=== PATIENT | male | born 1945 | race Caucasian/White ===

== ENCOUNTER 2017-04-11 13:50 | Observation (INO) ==
--- NOTE | 2017-04-11 14:14 | Emergency Department Note ---
Disposition Clinical Impression: Abdominal pain, Nausea, Pancreatic cyst, Weakness Disposition: Admitted As Inpatient Condition: Good General Adult HPI - General Chief complaint: ED Abdominal Pain Stated complaint: abd pain Time Seen by Provider: 04/11/17 13:53 Source: patient - History of Present Illness Pain Scale: 3 - Related Data Home Medications Medication Instructions Recorded Confirmed Caffeine 200 mg PO DAILY PRN 12/10/14 04/11/17 Glucosa Pierre 2Kcl/Chondroitin Pierre 1 cap PO DAILY 12/10/14 04/11/17 [Glucosamine & Chondroitin Cap] Multivitamin/Iron/Folic Acid 1 tab PO DAILY 12/10/14 04/11/17 [Centrum Complete Multivit Tab] Nitroglycerin [Nitrostat] 0.4 mg SL AD 12/10/14 04/11/17 Omeprazole [PriLOSEC] 40 mg PO DAILY 12/10/14 04/11/17 Quinapril/Hydrochlorothiazide 1 tab PO DAILY 12/10/14 04/11/17 [Quinapril-Hctz 10-12.5 mg Tab] Rosuvastatin [Crestor] 40 mg PO DAILY 12/10/14 04/11/17 Clopidogrel [Plavix] 75 mg PO DAILY 02/14/17 04/11/17 Tramadol HCl [Ultram] 50 mg PO TID PRN 02/14/17 04/11/17 Carvedilol [Coreg] 25 mg PO BID 04/11/17 04/11/17 Gabapentin [Neurontin] 600 mg PO TID 04/11/17 04/11/17 metFORMIN [Glucophage] 1,000 mg PO BIDWM 04/11/17 04/11/17 Previous Rx's Medication Instructions Recorded Sucralfate [Carafate] 1 gm PO QID 10 Days oral.susp 02/14/17 Allergies Allergy/AdvReac Type Severity Reaction Status Date / Time No Known Allergies Allergy Verified 04/11/17 14:03 Past Medical History - Past Medical History Medical history: Reports: coronary artery disease, diabetes, GERD, hypertension Surgical history: Reports: coronary bypass (CABG) (x 4 in 2002), other Psychiatric history: Reports: no psych history - Social History Smoking Status: Never smoker Smokeless Tobacco Status: No Alcohol use: Reports: none Drug use: Reports: none Physical Exam - General General appearance: alert, in no apparent distress Course Vital Signs Temperature 98.2 F 04/11/17 14:00 Pulse Rate 109 04/11/17 14:00 Respiratory Rate 16 04/11/17 14:00 Blood Pressure 156/93 04/11/17 14:00 O2 Sat by Pulse Oximetry 100 04/11/17 14:00 Temperature 97.8 F 04/12/17 19:56 Pulse Rate 79 04/12/17 19:56 Respiratory Rate 16 04/12/17 19:56 Blood Pressure 103/56 04/12/17 19:56 O2 Sat by Pulse Oximetry 95 04/12/17 19:56 Oxygen Delivery Oxygen Delivery Room Air Medical Decision Making - Lab Data Result diagrams: 04/12/17 03:29 04/12/17 03:29 Lab Results 04/11/17 04/11/17 04/11/17 Range/Units 14:37 14:37 14:37 WBC 9.3 (4.3-11.1) K/mcL RBC 4.89 (4.19-5.50) M/mcL Hgb 13.7 (12.9-16.9) g/dL Hct 40.1 (37.5-50.1) % MCV 82.0 L (83.0-100.0) fL MCH 28.0 (28.0-33.3) pg MCHC 34.2 (31.6-35.5) g/dL RDW 13.2 (11.5-14.5) % Plt Count 197 (140-400) K/mcL MPV 10.9 (9.4-12.4) fL Immature Gran % 0.2 (0-4) % Seg Neutrophils % 73.4 % Lymphocytes % 17.3 % Monocytes % 8.5 % Eosinophils % 0.2 % Basophils % 0.4 % Neutrophils # 6.8 (1.6-8.9) K/mcL Lymphocytes # 1.6 (0.6-4.6) K/mcL Monocytes # 0.8 (0.0-1.3) K/mcL Eosinophils # 0.0 (0.0-0.6) K/mcL Basophils # 0.0 (0.0-0.2) K/mcL Sodium 142 (136-145) mEq/L Potassium 3.6 (3.5-4.5) mEq/L Chloride 103 (98-109) mEq/L Carbon Dioxide 29 (19-29) mEq/L BUN 15 (8-26) mg/dL Creatinine 1.23 (0.72-1.25) mg/dL Est GFR ( Amer) > 60 (> 60) Est GFR (Non-Af Amer) 58 L (> 60) BUN/Creatinine Ratio 12 (6-26) Glucose 157 H (70-99) mg/dL Calculated Osmolality 298 (280-300) Calcium 10.0 (8.6-10.8) mg/dL Total Bilirubin 0.5 (0.2-1.2) mg/dL Direct Bilirubin 0.3 (0.0-0.5) mg/dL Indirect Bilirubin 0.2 (0.0-1.2) mg/dL AST 25 (5-34) Units/L ALT 21 (0-55) Units/L Alkaline Phosphatase 71 (38-126) Units/L Troponin I 0.00 (0-0.03) ng/mL Serum Total Protein 7.7 (6.0-8.3) g/dL Albumin 3.8 (3.5-5.0) g/dL Globulin 3.9 H (2.4-3.5) g/dL Albumin/Globulin Ratio 1.0 L (1.1-2.2) Lipase 31 (8-78) Units/L Urine Color (Yellow) Urine Clarity (Clear) Urine pH (5.0-8.0) pH Units Ur Specific [place] (1.010-1.025) Urine Protein (Neg-Trace) mg/dL Urine Glucose (UA) (Normal) mg/dL Urine Ketones (Negative) mg/dL Urine Blood (Negative) Urine Nitrite (Negative) Urine Bilirubin (Negative) Urine Urobilinogen (Normal) mg/dL Ur Leukocyte Esterase (Negative) Urine Microscopic RBC (0-3) per hpf Urine Microscopic WBC (0-3) per hpf Ur Squamous Epith Cells (None-Few) per lpf Urine Bacteria (None-Few) per hpf Hyaline Casts (None-Few) per lpf Ur Culture Indicated? (NO) 04/11/17 Range/Units 14:46 WBC (4.3-11.1) K/mcL RBC (4.19-5.50) M/mcL Hgb (12.9-16.9) g/dL Hct (37.5-50.1) % MCV (83.0-100.0) fL MCH (28.0-33.3) pg MCHC (31.6-35.5) g/dL RDW (11.5-14.5) % Plt Count (140-400) K/mcL MPV (9.4-12.4) fL Immature Gran % (0-4) % Seg Neutrophils % % Lymphocytes % % Monocytes % % Eosinophils % % Basophils % % Neutrophils # (1.6-8.9) K/mcL Lymphocytes # (0.6-4.6) K/mcL Monocytes # (0.0-1.3) K/mcL Eosinophils # (0.0-0.6) K/mcL Basophils # (0.0-0.2) K/mcL Sodium (136-145) mEq/L Potassium (3.5-4.5) mEq/L Chloride (98-109) mEq/L Carbon Dioxide (19-29) mEq/L BUN (8-26) mg/dL Creatinine (0.72-1.25) mg/dL Est GFR ( Amer) (> 60) Est GFR (Non-Af Amer) (> 60) BUN/Creatinine Ratio (6-26) Glucose (70-99) mg/dL Calculated Osmolality (280-300) Calcium (8.6-10.8) mg/dL Total Bilirubin (0.2-1.2) mg/dL Direct Bilirubin (0.0-0.5) mg/dL Indirect Bilirubin (0.0-1.2) mg/dL AST (5-34) Units/L ALT (0-55) Units/L Alkaline Phosphatase (38-126) Units/L Troponin I (0-0.03) ng/mL Serum Total Protein (6.0-8.3) g/dL Albumin (3.5-5.0) g/dL Globulin (2.4-3.5) g/dL Albumin/Globulin Ratio (1.1-2.2) Lipase (8-78) Units/L Urine Color Yellow (Yellow) Urine Clarity Clear (Clear) Urine pH 7.0 (5.0-8.0) pH Units Ur Specific [place] 1.014 (1.010-1.025) Urine Protein 30 H (Neg-Trace) mg/dL Urine Glucose (UA) Normal (Normal) mg/dL Urine Ketones Negative (Negative) mg/dL Urine Blood Negative (Negative) Urine Nitrite Negative (Negative) Urine Bilirubin Negative (Negative) Urine Urobilinogen Normal (Normal) mg/dL Ur Leukocyte Esterase Negative (Negative) Urine Microscopic RBC 0-3 (0-3) per hpf Urine Microscopic WBC 0-3 (0-3) per hpf Ur Squamous Epith Cells Few (None-Few) per lpf Urine Bacteria None Seen (None-Few) per hpf Hyaline Casts None Seen (None-Few) per lpf Ur Culture Indicated? NO (NO) Attestation Statement - Attestation Attestation: I examined this patient and my medical decision-making was reviewed with the Resident Physician. I agree with the documented findings, disposition and treatment plan as described except to the extent set forth below. [id number] time provided Patient presents with subacute abdominal pain. He was recently seen at the urgent care and diagnosed with suspected peptic ulcer disease. He states pain persists. He appears in no acute distress on exam
[2017-04-11] MEDS ORDERED: GI Cocktail 40 ML EACH PO ONE (14:19)
[2017-04-11] MEDS ORDERED: Ondansetron 4 MG/2 ML VIAL IVP ONE ×2 (14:19→15:46)
--- NOTE | 2017-04-11 14:24 | Emergency Department Note ---
Disposition Clinical Impression: Nausea, Pancreatic cyst, Weakness Abdominal pain Qualifiers: Abdominal location: unspecified location Qualified Code(s): R10.9 - Unspecified abdominal pain Disposition: Admitted As Inpatient Condition: Good Instructions: Acute Nausea and Vomiting (ED), Abdominal Pain (ED) Referrals: Angelika Montalvo CNP [Primary Care Provider] - Roslyn Puente MD [Partnered Physician] - Forms: ED Satisfaction Letter, Work/School Release Time of Disposition: 15:53 Abdominal Pain HPI - General Chief Complaint: ED Abdominal Pain Stated Complaint: abd pain Time Seen by Provider: 04/11/17 13:53 Source: patient Mode of arrival: ambulatory Limitations: no limitations Nursing Notes Reviewed: Yes Vital Signs Reviewed: Yes - History of Present Illness HPI Narrative: 71-year-old male history of hypertension, hyperlipidemia, CAD presents with epigastric discomfort. This is been ongoing for the past 4 days was recently seen at urgent care diagnosed with gastritis or peptic ulcer disease and placed on Carafate. He has been taking that medication for one day without any significant relief. He has been scheduled with general surgery Dr. Puente for ED tomorrow 1400. Describes a soreness across his epigastric region with some associated nausea. He denies any blood in his stool, black tarry stool, hemoptysis or hematemesis. He denies any other complaints such as recent illness, fever, cough, chest pain or shortness of breath. No prior abdominal surgeries. He does admit to me that his recently passed 3 months ago January 22 from peritonitis. This has been on his mind for quite some time. States he has lost his appetite is not been eating well or sleeping concern for depression. He denies any suicidal ideation. History of cardiac stents 2014. Pt Subjective Complaint: abdominal pain Pain Scale: 3 - Related Data Home Medications Medication Instructions Recorded Confirmed Caffeine 200 mg PO DAILY PRN 12/10/14 02/14/17 Glucosa Pierre 2Kcl/Chondroitin Pierre 1 cap PO DAILY 12/10/14 02/14/17 [Glucosamine & Chondroitin Cap] Multivitamin/Iron/Folic Acid 1 tab PO DAILY 12/10/14 02/14/17 [Centrum Complete Multivit Tab] Nitroglycerin [Nitrostat] 0.4 mg SL AD 12/10/14 02/14/17 Omeprazole [PriLOSEC] 40 mg PO DAILY 12/10/14 02/14/17 Quinapril/Hydrochlorothiazide 1 tab PO DAILY 12/10/14 02/14/17 [Quinapril-Hctz 10-12.5 mg Tab] Rosuvastatin [Crestor] 40 mg PO DAILY 12/10/14 02/14/17 Clopidogrel [Plavix] 75 mg PO DAILY 02/14/17 02/14/17 Tramadol HCl [Ultram] 50 mg PO TID PRN 02/14/17 02/14/17 Carvedilol [Coreg] 25 mg PO BID 04/11/17 04/11/17 Gabapentin [Neurontin] 600 mg PO TID 04/11/17 04/11/17 metFORMIN [Glucophage] 1,000 mg PO BIDWM 04/11/17 04/11/17 Previous Rx's Medication Instructions Recorded Sucralfate [Carafate] 1 gm PO QID 10 Days oral.susp 02/14/17 Allergies Allergy/AdvReac Type Severity Reaction Status Date / Time No Known Allergies Allergy Verified 04/11/17 14:03 All systems ED: reviewed and negative except as stated. Review of Systems: As Per HPI Constitutional: Denies: fever, chills Cardiovascular: Denies: chest pain, dyspnea on exertion Respiratory: Denies: cough, dyspnea Gastrointestinal: Reports: abdominal pain, nausea. Denies: vomiting, diarrhea, hematemesis, melena, hematochezia Genitourinary: Denies: urgency, dysuria Musculoskeletal: Denies: back pain, neck pain Integumentary: Denies: rash, abrasion, lesions Neurological: Denies: headache Psychiatric: Denies: depression, suicidal thoughts Abdominal Pain PMH - Past Medical History Medical history: Reports: coronary artery disease, diabetes, GERD, hypertension Male Surgical History: Reports: coronary bypass (CABG) Psychiatric history: Reports: no psych history - Social History Smoking status: Never smoker Alcohol use: Reports: none Drug use: Reports: none Physical Exam - General Limitations: no limitations General appearance: alert, in no apparent distress, other (Flat affect) - Head Head exam: atraumatic, normocephalic, normal inspection - Eye Eye exam: Present: normal appearance, PERRL, EOMI - ENT ENT exam: normal exam, normal oropharynx, mucous membranes moist - Neck Neck exam: Present: normal inspection, full ROM, trachea midline - Chest Chest inspection: Present: normal inspection, symmetric chest wall rise, other ( Midsternal scar consistent with CABG) - Respiratory Respiratory exam: Present: normal lung sounds bilaterally - Cardiovascular Cardiovascular exam: Present: regular rate, normal rhythm, normal heart sounds - Abdominal Exam Abdominal exam: Present: soft, tenderness, normal bowel sounds, tenderness at McBurney's Point. Absent: Non-Tender, distention, guarding, rebound, rigidity, obturator sign, Bertrand's sign, Rovsing's sign Abdominal tenderness: Present: RLQ, epigastrium - Extremities Exam Extremities exam: Present: full ROM, normal capillary refill, other (right hand amputation). Absent: tenderness, pedal edema - Back Exam Back exam: Present: normal inspection, full ROM. Absent: tenderness, CVA tenderness (R), CVA tenderness (L) - Neurological Exam Neurological exam: Present: alert, oriented X3 - Psychiatric Psychiatric exam: Present: normal affect, normal mood, anxious. Absent: suicidal ideation - Skin Skin exam: Present: warm, dry, intact, normal color. Absent: rash, diaphoresis Course - Reevaluation(s) Reevaluation #1: Review of his labs are unremarkable. EKG unremarkable. CT shows pancreatic cyst that I discussed the findings with him and appropriate follow-up. He also has uncomplicated cholelithiasis as well as a large prostate gland. Patient has a scheduled appointment with surgeon tomorrow for consultation of a ED. Review of his urgent care encounter he was prescribed Protonix, Carafate and Zofran. He is currently only taking the Carafate and Protonix. Despite his medication he continues to have symptoms here. Junior P8 abdominal examination his abdomen is soft nontender nondistended without any focal tenderness. CT does not show any acute abnormality. This is a nonsurgical abdomen. Daughter came up to the nursing station and reports that over the past 3 days he has not been able to take care of himself. He lives by himself. Due to the nausea, he has lost some weight and appears weaker. After multiple doses of Zofran in one Phenergan he continues to be nauseated. He does not feel well and would like admission. Impression is abdominal pain, nausea, weakness. Our hospital social worker Charline has seen and evaluated the patient and recommends a consultation on the floor. Abdomen/Pelvis CT 04/11/17 14:20 IMPRESSION: 1. No acute abnormality in the abdomen/pelvis. 2. Diffuse bladder wall thickening, likely secondary to a combination of prior cystitis and sequela of chronic bladder outlet obstruction from an enlarged prostate gland. 3. Small cystic lesions in the pancreatic tail, which measure up to 7 mm in size. A follow-up pancreatic protocol MRI in 12 months is recommended, as outlined below. 4. Uncomplicated cholelithiasis. 5. Severe atherosclerosis. RECOMMENDATIONS: Managing Incidental Cystic Pancreatic Mass (Asymptomatic Patient) Lesion <2 cm: MRI using pancreatic mass protocol in 1 year (6 months if younger patient) Lesion 2-3 cm: characterize with MRI using pancreatic mass protocol Lesion >3 cm: Surgical referral recommended Reference: Monica et al. Managing Incidental Findings on Abdominal CT: White Paper of the ACR Incidental Findings Committee. J Am Bobby Radiol 2010;[id number] D/ / 04/11/2017 15:24:56 Geovany Larson MD / xavier Interpreting Provider: Geovany Larson MD Time: 15:48 - Consultations Consultation #1: Spoke with on-call hospitalist maria del carmen Weiss to admit for abdominal pain, nausea , weakness. No further orders at this time Time: 16:50 Vital Signs Temperature 98.2 F 04/11/17 14:00 Pulse Rate 109 04/11/17 14:00 Respiratory Rate 16 04/11/17 14:00 Blood Pressure 156/93 04/11/17 14:00 O2 Sat by Pulse Oximetry 100 04/11/17 14:00 Temperature 98.2 F 04/11/17 14:00 Pulse Rate 76 04/11/17 16:03 Respiratory Rate 16 04/11/17 16:03 Blood Pressure 158/87 04/11/17 16:03 O2 Sat by Pulse Oximetry 97 04/11/17 16:03 Oxygen Delivery Oxygen Delivery Room Air Abdominal Pain - MDM Narrative Medical decision making narrative: Patient was discussed with my attending physician who agrees with ED management and final disposition. They independently evaluated the patient. Please refer to their attestation to this encounter for additional information. This note was generated by [employer] voice recognition software and as a result grammatical or spelling errors may occur using this program. - Medical Records Medical records reviewed: Yes I reviewed the patient's medical records. - Lab Data Lab results reviewed: Yes I reviewed the patient's lab results. Result diagrams: 04/11/17 14:37 04/11/17 14:37 Lab Results 04/11/17 04/11/17 04/11/17 Range/Units 14:37 14:37 14:37 WBC 9.3 (4.3-11.1) K/mcL RBC 4.89 (4.19-5.50) M/mcL Hgb 13.7 (12.9-16.9) g/dL Hct 40.1 (37.5-50.1) % MCV 82.0 L (83.0-100.0) fL MCH 28.0 (28.0-33.3) pg MCHC 34.2 (31.6-35.5) g/dL RDW 13.2 (11.5-14.5) % Plt Count 197 (140-400) K/mcL MPV 10.9 (9.4-12.4) fL Immature Gran % 0.2 (0-4) % Seg Neutrophils % 73.4 % Lymphocytes % 17.3 % Monocytes % 8.5 % Eosinophils % 0.2 % Basophils % 0.4 % Neutrophils # 6.8 (1.6-8.9) K/mcL Lymphocytes # 1.6 (0.6-4.6) K/mcL Monocytes # 0.8 (0.0-1.3) K/mcL Eosinophils # 0.0 (0.0-0.6) K/mcL Basophils # 0.0 (0.0-0.2) K/mcL Sodium 142 (136-145) mEq/L Potassium 3.6 (3.5-4.5) mEq/L Chloride 103 (98-109) mEq/L Carbon Dioxide 29 (19-29) mEq/L BUN 15 (8-26) mg/dL Creatinine 1.23 (0.72-1.25) mg/dL Est GFR ( Amer) > 60 (> 60) Est GFR (Non-Af Amer) 58 L (> 60) BUN/Creatinine Ratio 12 (6-26) Glucose 157 H (70-99) mg/dL Calculated Osmolality 298 (280-300) Calcium 10.0 (8.6-10.8) mg/dL Total Bilirubin 0.5 (0.2-1.2) mg/dL Direct Bilirubin 0.3 (0.0-0.5) mg/dL Indirect Bilirubin 0.2 (0.0-1.2) mg/dL AST 25 (5-34) Units/L ALT 21 (0-55) Units/L Alkaline Phosphatase 71 (38-126) Units/L Troponin I 0.00 (0-0.03) ng/mL Serum Total Protein 7.7 (6.0-8.3) g/dL Albumin 3.8 (3.5-5.0) g/dL Globulin 3.9 H (2.4-3.5) g/dL Albumin/Globulin Ratio 1.0 L (1.1-2.2) Lipase 31 (8-78) Units/L Urine Color (Yellow) Urine Clarity (Clear) Urine pH (5.0-8.0) pH Units Ur Specific [place] (1.010-1.025) Urine Protein (Neg-Trace) mg/dL Urine Glucose (UA) (Normal) mg/dL Urine Ketones (Negative) mg/dL Urine Blood (Negative) Urine Nitrite (Negative) Urine Bilirubin (Negative) Urine Urobilinogen (Normal) mg/dL Ur Leukocyte Esterase (Negative) Urine Microscopic RBC (0-3) per hpf Urine Microscopic WBC (0-3) per hpf Ur Squamous Epith Cells (None-Few) per lpf Urine Bacteria (None-Few) per hpf Hyaline Casts (None-Few) per lpf Ur Culture Indicated? (NO) 04/11/17 Range/Units 14:46 WBC (4.3-11.1) K/mcL RBC (4.19-5.50) M/mcL Hgb (12.9-16.9) g/dL Hct (37.5-50.1) % MCV (83.0-100.0) fL MCH (28.0-33.3) pg MCHC (31.6-35.5) g/dL RDW (11.5-14.5) % Plt Count (140-400) K/mcL MPV (9.4-12.4) fL Immature Gran % (0-4) % Seg Neutrophils % % Lymphocytes % % Monocytes % % Eosinophils % % Basophils % % Neutrophils # (1.6-8.9) K/mcL Lymphocytes # (0.6-4.6) K/mcL Monocytes # (0.0-1.3) K/mcL Eosinophils # (0.0-0.6) K/mcL Basophils # (0.0-0.2) K/mcL Sodium (136-145) mEq/L Potassium (3.5-4.5) mEq/L Chloride (98-109) mEq/L Carbon Dioxide (19-29) mEq/L BUN (8-26) mg/dL Creatinine (0.72-1.25) mg/dL Est GFR ( Amer) (> 60) Est GFR (Non-Af Amer) (> 60) BUN/Creatinine Ratio (6-26) Glucose (70-99) mg/dL Calculated Osmolality (280-300) Calcium (8.6-10.8) mg/dL Total Bilirubin (0.2-1.2) mg/dL Direct Bilirubin (0.0-0.5) mg/dL Indirect Bilirubin (0.0-1.2) mg/dL AST (5-34) Units/L ALT (0-55) Units/L Alkaline Phosphatase (38-126) Units/L Troponin I (0-0.03) ng/mL Serum Total Protein (6.0-8.3) g/dL Albumin (3.5-5.0) g/dL Globulin (2.4-3.5) g/dL Albumin/Globulin Ratio (1.1-2.2) Lipase (8-78) Units/L Urine Color Yellow (Yellow) Urine Clarity Clear (Clear) Urine pH 7.0 (5.0-8.0) pH Units Ur Specific [place] 1.014 (1.010-1.025) Urine Protein 30 H (Neg-Trace) mg/dL Urine Glucose (UA) Normal (Normal) mg/dL Urine Ketones Negative (Negative) mg/dL Urine Blood Negative (Negative) Urine Nitrite Negative (Negative) Urine Bilirubin Negative (Negative) Urine Urobilinogen Normal (Normal) mg/dL Ur Leukocyte Esterase Negative (Negative) Urine Microscopic RBC 0-3 (0-3) per hpf Urine Microscopic WBC 0-3 (0-3) per hpf Ur Squamous Epith Cells Few (None-Few) per lpf Urine Bacteria None Seen (None-Few) per hpf Hyaline Casts None Seen (None-Few) per lpf Ur Culture Indicated? NO (NO) - Radiology Data Radiology results reviewed: Yes I reviewed the patient's radiology results. Abdomen/Pelvis CT 04/11/17 14:20 IMPRESSION: 1. No acute abnormality in the abdomen/pelvis. 2. Diffuse bladder wall thickening, likely secondary to a combination of prior cystitis and sequela of chronic bladder outlet obstruction from an enlarged prostate gland. 3. Small cystic lesions in the pancreatic tail, which measure up to 7 mm in size. A follow-up pancreatic protocol MRI in 12 months is recommended, as outlined below. 4. Uncomplicated cholelithiasis. 5. Severe atherosclerosis. RECOMMENDATIONS: Managing Incidental Cystic Pancreatic Mass (Asymptomatic Patient) Lesion <2 cm: MRI using pancreatic mass protocol in 1 year (6 months if younger patient) Lesion 2-3 cm: characterize with MRI using pancreatic mass protocol Lesion >3 cm: Surgical referral recommended Reference: Monica et al. Managing Incidental Findings on Abdominal CT: White Paper of the ACR Incidental Findings Committee. J Am Bobby Radiol 2010;[id number] D/ / 04/11/2017 15:24:56 Geovany Larson MD / xavier Interpreting Provider: Geovany Larson MD - EKG Data EKG attestation: Yes I reviewed and interpreted this EKG. EKG results narrative: EKG performed 1435 normal sinus rhythm 70 bpm, left axis deviation, QRS 102, poor R wave progression, Q waves in inferior leads, no ST elevations or depression, nonspecific T wave flattening. There is no old EKG available for comparison.
[2017-04-11 14:50] LABS: Basophils % 0.4 %; Eosinophils % 0.2 %; Hematocrit 40.1 % (37.5-50.1); Hemoglobin 13.7 g/dL (12.9-16.9); Immature Granulocytes % 0.2 % (0-4); Lymphocytes # 1.6 K/mcL (0.6-4.6); Lymphocytes % 17.3 %; Mean Corpuscular HGB Conc 34.2 g/dL (31.6-35.5); Mean Platelet Volume 10.9 fL (9.4-12.4); Monocytes # 0.8 K/mcL (0.0-1.3); Monocytes % 8.5 %; Neutrophils # 6.8 K/mcL (1.6-8.9); Platelet Count 197 K/mcL (140-400); Red Blood Count 4.89 M/mcL (4.19-5.50); Red Cell Distribution Width 13.2 % (11.5-14.5); Segmented Neutrophils % 73.4 %
[2017-04-11 14:51] LABS: Bilirubin,Urine Negative (Negative); Blood,Urine Negative (Negative); Clarity,Urine Clear (Clear); Color,Urine Yellow (Yellow); Glucose,Urine (UA) Normal (Normal); Ketones,Urine Negative (Negative); Leukocyte Esterase,Urine Negative (Negative); Nitrite,Urine Negative (Negative); Protein,Urine 30 mg/dL (Neg-Trace); Specific Gravity,Urine 1.014 (1.010-1.025); Urobilinogen,Urine Normal (Normal)
[2017-04-11 14:54] LABS: Bacteria,Urine None Seen per hpf (None-Few); Hyaline Casts,Urine None Seen per lpf (None-Few); RBC,Urine 0-3 per hpf (0-3); Squamous Epithelial Cell,Urine Few per lpf (None-Few); WBC,Urine 0-3 per hpf (0-3)
[2017-04-11 15:03] LABS: Alanine Aminotransferase 21 Units/L (0-55); Albumin 3.8 g/dL (3.5-5.0); Alkaline Phosphatase 71 Units/L (38-126); Aspartate Amino Transferase 25 Units/L (5-34); BUN/Creatinine Ratio 12 (6-26); Bilirubin,Direct 0.3 mg/dL (0.0-0.5); Bilirubin,Indirect 0.2 mg/dL (0.0-1.2); Bilirubin,Total 0.5 mg/dL (0.2-1.2); Blood Urea Nitrogen 15 mg/dL (8-26); Carbon Dioxide 29 mEq/L (19-29); Chloride 103 mEq/L (98-109); Globulin 3.9 g/dL (2.4-3.5); Glucose 157 mg/dL (70-99); Lipase 31 Units/L (8-78); Osmolality,Calculated 298 (280-300); Potassium 3.6 mEq/L (3.5-4.5); Sodium 142 mEq/L (136-145); Total Protein 7.7 g/dL (6.0-8.3); eGFR For African Americans > 60 (> 60); eGFR For Non-African Americans 58 (> 60)
[2017-04-11] MEDS ORDERED: 0.9 % Sodium Chloride 1,000 ML IVC ONE (16:17)
[2017-04-11] MEDS ORDERED: Pantoprazole 40 MG VIAL IVP ONE (16:17)
[2017-04-11] MEDS ORDERED: traMADol 50 MG TABLET PO PRN (18:33)
[2017-04-11] MEDS ORDERED: Naloxone 0.4 MG/ML INJ IVP PRN (18:39)
[2017-04-11] MEDS ORDERED: Ondansetron 4 MG/2 ML VIAL IVP PRN (18:39)
[2017-04-11] MEDS ORDERED: *HR* Dextrose 50 % in Water (Syg) 50 ML SYRINGE IVP PRN (18:39)
[2017-04-11] MEDS ORDERED: D5% in Water 1,000 ML IVC PRN (18:39)
[2017-04-11] MEDS ORDERED: Dextrose Gel 15 GM PO PRN ×2 (18:39)
[2017-04-11] MEDS ORDERED: 0.9 % Sodium Chloride 1,000 ML IVC SCH (18:45)
[2017-04-11] MEDS ORDERED: Nitroglycerin 0.4 MG TAB.SUBL SL PRN (18:45)
--- NOTE | 2017-04-11 19:08 | Internal Med History&Physical ---
<Catracho Larry J - Last Filed: 04/11/17 19:05> Date of Encounter: 04/11/17 Time of Encounter: 19:05 Assessment and Plan (1) Nausea Current visit: Yes Status: Acute He is no longer continuously nauseous. He has not vomited since Monday. Start antiemetics Encourage fluids, Start 0.9% NS at 125ml/hr for 1 liter Full liquid diet Consult surgery for possible inpatient EGD- GREY TENDER to see tomorrow Start PPI IVP BID Continue carafate CBC, CMP, lactic acid in am (2) Abdominal pain Current visit: Yes Status: Acute Continues to have generalized epigastric discomfort. He is unable to describe the sensation but reports that it improves with eating. She denies any hematemesis, hematochezia, melena. CT of abdomen and pelvis negative with the exception of a 7 mm pancreatic tail cyst. Recommendations for pancreatic tail cyst are to follow-up with MRI in 12 months See plan above. 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 Continue BB Qualifiers: Hypertension type: essential hypertension Qualified Code(s): I10 - Essential (primary) hypertension (5) DVT prophylaxis Current visit: Yes Status: Acute Heparin 5000 units subcutaneous twice a day Internal Medicine - H&P: HPI Chief complaint: epigastric discomfort Admitted From: Home Plans for Post Hospital Care: Home History of present illness: Mr. Clark is a 71 year old male with a PMH of HTN, HLD, CAD, DM, GERD, CABG with UT with stents who presents to [facility] today with a 4 day history of epigastric discomfort. Patient reports that his recently seen in urgent care due to nausea vomiting and epigastric pain. While at the urgent care he was diagnosed with suspected gastritis or possible peptic ulcer disease. He was placed on Carafate and sent home. The patient reports he has only taken one dose of Carafate but has not had any relief. 3 presents to the ED today due to continued discomfort. He admits to fever, chills, abdominal pain, nausea and vomiting. He denies any chest pain, shortness of breath above baseline, coffee-ground emesis, hematochezia or dark tarry stools. CT of abdomen and pelvis in the ED reveals a pancreatic tail cyst measuring 7 mm. Is being admitted for further workup and evaluation Past Med Surg Social Fam HX - Past Medical History Medical history: coronary artery disease, diabetes, GERD, hypertension Psychiatric history: no psych history - Past Surgical History Surgical History: coronary bypass (CABG), other - Social History Smoking Status: Never smoker Smokeless Tobacco Status: No Alcohol use: none Drug use: none - Family History Father Living Status: Age at : 66 Cause of : heart attack Hx Family Endocrine Disorder: Yes Mother Living Status: Age at : 80 Cause of : heart attack Internal Medicine - H&P: Meds Caffeine 200 mg PO DAILY PRN 12/10/14 [History] Glucosa Pierre 2Kcl/Chondroitin Pierre [Glucosamine & Chondroitin Cap] 1 cap PO DAILY [History] Multivitamin/Iron/Folic Acid [Centrum Complete Multivit Tab] 1 tab PO DAILY 04/14 [History] Nitroglycerin [Nitrostat] 0.4 mg SL AD 12/10/14 [History] Omeprazole [PriLOSEC] 40 mg PO DAILY 12/10/14 [History] Quinapril/Hydrochlorothiazide [Quinapril-Hctz 10-12.5 mg Tab] 1 tab PO DAILY 04/14 [History] Rosuvastatin [Crestor] 40 mg PO DAILY 12/10/14 [History] Clopidogrel [Plavix] 75 mg PO DAILY 02/14/17 [History] Sucralfate [Carafate] 1 gm PO QID 10 Days oral.susp 02/14/17 [Rx] Tramadol HCl [Ultram] 50 mg PO TID PRN 02/14/17 [History] Carvedilol [Coreg] 25 mg PO BID 04/11/17 [History] Gabapentin [Neurontin] 600 mg PO TID 04/11/17 [History] metFORMIN [Glucophage] 1,000 mg PO BIDWM 04/11/17 [History] 3 Allergy/AdvReac Type Severity Reaction Status Date / Time No Known Allergies Allergy Verified 04/11/17 14:03 All Systems PM: A 10-system review of systems was performed and is negative for pertinent findings except as documented above in the HPI. - Constitutional Constitutional: anorexia, chills (subjective), fatigue, fever(s) (subjective), weakness - Cardiovascular Cardiovascular ROS IM: no chest pain, no diaphoresis, no dyspnea, no lightheadedness, no palpitations, no syncope - Respiratory Respiratory: no cough, no dyspnea, no wheezing, no excessive phlegm production - Gastrointestinal Gastrointestinal: abdominal pain (epigastric), nausea, vomiting (on Monday; has not vomited since), no diarrhea - Musculoskeletal Musculoskeletal ROS IM: no numbness, no tingling - Integumentary Integumentary IM: no rash, no unusual bruising - Neurological Neurological ROS: no confusion, no convulsions, no focal weakness, no numbness, no tingling, no tremor(s) - Constitutional Vitals: Temp Pulse Resp BP Pulse Ox 98.0 F 81 16 146/80 96 04/11/17 18:51 04/11/17 18:51 04/11/17 18:51 04/11/17 18:51 04/11/17 18:51 General appearance: Present: cooperative, A&O X 3, no acute distress, answers questions appropriately - Head Head exam: Present: atraumatic, normocephalic - Neck Neck exam general surgery: Present: supple, trachea midline. Absent: lymphadenopathy - Respiratory Respiratory exam: Present: CTAB. Absent: accessory muscle use, rales, rhonchi, wheezes - Cardiovascular Cardiovascular exam: Present: RRR, +S1, +S2. Absent: diastolic murmur, gallop, rubs, systolic murmur - GI/Abdominal GI/Abdominal exam: Present: normal bowel sounds, soft, tenderness (epigastric), no peritoneal signs. Absent: distended, firm, guarding, rigid - Extremities Exam Extremities exam: Present: warm, radial pulses palpable and symmetrical. Absent : calf tenderness, cyanotic, pedal edema - Neurological Exam Neurological exam: Present: alert, oriented X3, no focal deficits. Absent: pronater drift, facial droop, speech deficit - Skin Skin exam: Present: dry, intact Internal Med - H&P Results - Labs CBC & Chem 7: 04/11/17 14:37 04/11/17 14:37 - Diagnostic Studies CT scan - abdomen Status: image reviewed by me Additional comments: 1. No acute abnormality in the abdomen/pelvis. 2. Diffuse bladder wall thickening, likely secondary to a combination of prior cystitis and sequela of chronic bladder outlet obstruction from an enlarged prostate gland. 3. Small cystic lesions in the pancreatic tail, which measure up to 7 mm in size. A follow-up pancreatic protocol MRI in 12 months is recommended for further evaluation, as outlined below. 4. Uncomplicated cholelithiasis. 5. Severe atherosclerosis. <Jeana Paigemaico Murillo - Last Filed: 04/11/17 20:55> Date of Encounter: 04/11/17 Internal Medicine - H&P: HPI History of present illness: Mr. Clark is a 71 year old male All Systems PM: A 10-system review of systems was performed and is negative for pertinent findings except as documented above in the HPI. - Constitutional Vitals: Temp Pulse Resp BP Pulse Ox 98.0 F 81 16 146/80 96 04/11/17 18:51 04/11/17 18:51 04/11/17 18:51 04/11/17 18:51 04/11/17 18:51 Internal Med - H&P Results - Labs CBC & Chem 7: 04/11/17 14:37 04/11/17 14:37 - Attending Attestation I have personally performed a face to face evaluation on this patient. I have reviewed and agree with the care plan. History and Exam by me shows: 71 yo male with dyspepsia symptoms since a couple months ago. Worsened in last 4 years , seen at urgent care. Epigastric discomfort, dull ache, nausea, emesis- clear, somewhat better with food. Moving bowels. EKG reviewed personally with rate 70, NSR ROS 14 point review of systems reviewed as best as possible given presentation. Pertinent positive or negative as per HPI or otherwise reviewed as negative General - AAO x 3 Psych - Appropriate affect/speech. No agitation Eyes - TIFFANY. Eye lids intact. No scleral icterus Neuro - No gross peripheral or central neuro deficits with intact CN 2-12 exam Heart - Sinus. RRR. S1 and S2 present. No added HS/murmurs appreciated. No elevated JVD appreciated. Lung - Adequate air entry b/l, No crackles/wheezes appreciated GI - Epigastric discomfort. No hepatosplenomegaly/ascites. BS+ - No CVA/suprapubic tenderness or palpable bladder distension Skin - Intact. No rash/petechiae/ecchymosis. Warm extremities MSK - Distal right hand amputation. Joints with normal ROM. No joint swellings A/P Epigastric discomfort Dyspepsia Associated N/V R/o PUD - was suppose to establish with Dr Puente outpatient for possible EGD eval - consult surgery who will see tomorrow - meanwhile medical management with PPI , carafate, symptom directed management - full liquids and progress as tolerated IDDM
[2017-04-11] MEDS ORDERED: Insulin LISPRO 300 UNITS/3 ML VIAL SQ SCH (21:00)
[2017-04-11] MEDS: Gabapentin 300 MG CAPSULE PO SCH (22:04)
[2017-04-12 03:37] LABS: Basophils % 0.2 %; Eosinophils # 0.1 K/mcL (0.0-0.6); Eosinophils % 0.6 %; Hematocrit 35.2 % (37.5-50.1); Immature Granulocytes % 0.1 % (0-4); Lymphocytes # 1.7 K/mcL (0.6-4.6); Mean Corpuscular HGB Conc 33.8 g/dL (31.6-35.5); Mean Corpuscular Volume 82.8 fL (83.0-100.0); Mean Platelet Volume 10.6 fL (9.4-12.4); Monocytes % 11.6 %; Neutrophils # 5.6 K/mcL (1.6-8.9); Platelet Count 175 K/mcL (140-400); Red Blood Count 4.25 M/mcL (4.19-5.50); Red Cell Distribution Width 13.3 % (11.5-14.5); Segmented Neutrophils % 67.5 %
[2017-04-12 03:38] LABS: Hemoglobin 11.9 g/dL (12.9-16.9)
[2017-04-12 03:51] LABS: Alanine Aminotransferase 17 Units/L (0-55); Albumin 3.1 g/dL (3.5-5.0); Alkaline Phosphatase 58 Units/L (38-126); Aspartate Amino Transferase 22 Units/L (5-34); BUN/Creatinine Ratio 14 (6-26); Bilirubin,Total 0.5 mg/dL (0.2-1.2); Blood Urea Nitrogen 15 mg/dL (8-26); Calcium 8.5 mg/dL (8.6-10.8); Carbon Dioxide 26 mEq/L (19-29); Chloride 109 mEq/L (98-109); Glucose 117 mg/dL (70-99); Osmolality,Calculated 298 (280-300); Potassium 3.5 mEq/L (3.5-4.5); Sodium 143 mEq/L (136-145); eGFR For African Americans > 60 (> 60); eGFR For Non-African Americans > 60 (> 60)
[2017-04-12 03:52] LABS: Total Protein 6.1 g/dL (6.0-8.3)
[2017-04-12] MEDS ORDERED: Pantoprazole 40 MG VIAL IVP SCH (06:00)
[2017-04-12] MEDS ORDERED: *HR* Heparin 5,000 UNIT/ML VIAL SQ SCH (06:00)
[2017-04-12] MEDS: Gabapentin 300 MG CAPSULE PO SCH ×3 (08:03→21:32)
[2017-04-12] MEDS: Insulin LISPRO 300 UNITS/3 ML VIAL SQ SCH ×3 (08:07→16:35)
[2017-04-12] MEDS ORDERED: [UNRECOGNIZED DRUG - OTHER] PO SCH (09:00)
[2017-04-12] MEDS ORDERED: QUINAPRIL PO SCH (09:00)
[2017-04-12] MEDS ORDERED: HYDROCHLOROTHIAZIDE PO SCH (09:00)
[2017-04-12] MEDS ORDERED: [UNRECOGNIZED DRUG - OTHER] PO SCH (09:00)
[2017-04-12] MEDS ORDERED: Multivit/Ca/Min/Fe/FA 1 TAB TABLET PO SCH (09:00)
[2017-04-12] MEDS ORDERED: *HR* Midazolam HCl 5 MG/5 ML VIAL IVP ONE (11:00)
[2017-04-12] MEDS ORDERED: *HR* FentaNYL (PF) 100 MCG/2 ML VIAL ONE (11:01)
[2017-04-12] MEDS ORDERED: *HR* Promethazine 25 MG/ML VIAL ONE (11:01)
--- NOTE | 2017-04-12 11:03 | General Surgery Consult Note ---
Date of Encounter: 04/12/17 Time of Encounter: 10:30 Assessment and Plan (1) Epigastric abdominal pain Current Visit: Yes Status: Acute NPO IV fluids Supportive care PPI therapy BID Carafate QID Plan for EGD today with Dr. Puente- the risks, benefits, alternatives, expected outcomes were reviewed with the patient is in agreement to proceed with his procedure today. (2) Coronary artery disease Current Visit: No Status: Chronic Qualifiers: Coronary Disease-Associated Artery/Lesion type: bypass graft [place] vs. 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 A follow-up pancreatic protocol MRI in 12 months is recommended for further evaluation, as outlined below. Management per PCP History of Present Illness Consult date: 04/12/17 History of present illness: Mr. Clark is a very pleasant 71-year-old male who presented to the emergency department last night with complaints of persistent epigastric abdominal pain. He states that he has had pain in the epigastric area which has been intermittent for the last couple of months. He states that the pain is random and that it comes and goes. He states that he began to have recurrent epigastric pain on Monday evening and did have associated vomiting. Denies any hematemesis or coffee-ground emesis. He states that this started after eating potato soup. He denies any radiating factors. He states that the pain is typically better with eating but this was not the case on Monday. He reports that prior to the last 2 months he has never had a history of pain like this in the past. He states that he did go to urgent care on Monday and was given Carafate which she does not feel has helped. He does have a history of heartburn and states that his symptoms are controlled with omeprazole. He does complain of feeling hot and cold but denies any specific fevers. He denies any diarrhea or constipation. Denies any melena or hematochezia. He states that he did have an EGD 3-4 years ago and at that time he did have a hiatal hernia. He states his last colonoscopy was 4-5 years ago and he had 1 benign polyp removed. He reports a 3-4 pound weight loss per year which is unintentional. We have been asked to see and evaluate the patient for his epigastric discomfort. 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) - Social History Smoking Status: Never smoker Smokeless Tobacco Status: No Alcohol use: none Drug use: none Current living situation: Home - Independent Activity Level: Independent ambulation - Family History Father Living Status: Age at : 66 Cause of : heart attack Hx Family Cardiac Disorders: Yes (CAD) Hx Family Endocrine Disorder: Yes (Diabetes Mellitus) Mother Living Status: Age at : 80 Cause of : heart attack Hx Family Cardiac Disorders: Yes (CAD) Sister Living Status: Still Living Hx Family Cancer: Yes (Breast cancer) Hx Family Neuromuscular Disorders: Yes (Scoliosis) Medications and Allergies Caffeine 200 mg PO DAILY PRN 12/10/14 [History] Glucosa Pierre 2Kcl/Chondroitin Pierre [Glucosamine & Chondroitin Cap] 1 cap PO DAILY [History] Multivitamin/Iron/Folic Acid [Centrum Complete Multivit Tab] 1 tab PO DAILY 04/14 [History] Nitroglycerin [Nitrostat] 0.4 mg SL AD 12/10/14 [History] Omeprazole [PriLOSEC] 40 mg PO DAILY 12/10/14 [History] Quinapril/Hydrochlorothiazide [Quinapril-Hctz 10-12.5 mg Tab] 1 tab PO DAILY 04/14 [History] Rosuvastatin [Crestor] 40 mg PO DAILY 12/10/14 [History] Clopidogrel [Plavix] 75 mg PO DAILY 02/14/17 [History] Sucralfate [Carafate] 1 gm PO QID 10 Days oral.susp 02/14/17 [Rx] Tramadol HCl [Ultram] 50 mg PO TID PRN 02/14/17 [History] Carvedilol [Coreg] 25 mg PO BID 04/11/17 [History] Gabapentin [Neurontin] 600 mg PO TID 04/11/17 [History] metFORMIN [Glucophage] 1,000 mg PO BIDWM 04/11/17 [History] 3 Allergy/AdvReac Type Severity Reaction Status Date / Time No Known Allergies Allergy Verified 04/11/17 14:03 Review of Systems All systems PM: reviewed and no additional remarkable complaints except as stated (in the HPI) All systems PM: A 10-system review of systems was performed and is negative for pertinent findings except as documented above in the HPI. General Surgery Exam Initial Vital Signs Temp Pulse Resp BP Pulse Ox 98.2 F 109 16 156/93 100 04/11/17 14:00 04/11/17 14:00 04/11/17 14:00 04/11/17 14:00 04/11/17 14:00 - General physical appearance well developed, well nourished, no distress - Eyes normal ocular movement - ENT normal mucosa, atraumatic, normocephalic - Neck trachea midline - Respiratory normal expansion, normal respiratory effort, clear to auscultation - Cardiovascular Cardiovascular exam: Present: RRR - Abdomen Abdomen general surgery: Present: bowel sounds present, soft, non tender - Integumentary Integumentary general surgery: Present: warm and dry - Neurologic Present: CN 2-12 grossly intact - Musculoskeletal Present: normal gait, normal posture - Psychiatric Psychiatric general surgery: Present: appropriate, oriented to person, oriented to place, oriented to time, speech is normal, memory intact Exam Initial Vital Signs Temp Pulse Resp BP Pulse Ox 98.2 F 109 16 156/93 100 04/11/17 14:00 04/11/17 14:00 04/11/17 14:00 04/11/17 14:00 04/11/17 14:00 Results - Labs 04/12/17 03:29 04/12/17 03:29 Abnormal lab results Hgb 11.9 g/dL (12.9-16.9) L D 04/12/17 03:29 Hct 35.2 % (37.5-50.1) L 04/12/17 03:29 MCV 82.8 fL (83.0-100.0) L 04/12/17 03:29 Glucose 117 mg/dL (70-99) H 04/12/17 03:29 Calcium 8.5 mg/dL (8.6-10.8) L 04/12/17 03:29 Albumin 3.1 g/dL (3.5-5.0) L 04/12/17 03:29 Albumin/Globulin Ratio 1.0 (1.1-2.2) L 04/12/17 03:29 Urine Protein 30 mg/dL (Neg-Trace) H 04/11/17 14:46 Diabetes panel 04/12/17 Range/Units 03:29 Sodium 143 (136-145) mEq/L Potassium 3.5 (3.5-4.5) mEq/L Chloride 109 (98-109) mEq/L Carbon Dioxide 26 (19-29) mEq/L BUN 15 (8-26) mg/dL Creatinine 1.09 (0.72-1.25) mg/dL Glucose 117 H (70-99) mg/dL Calcium 8.5 L (8.6-10.8) mg/dL AST 22 (5-34) Units/L ALT 17 (0-55) Units/L Alkaline Phosphatase 58 (38-126) Units/L Albumin 3.1 L (3.5-5.0) g/dL Calcium panel 04/12/17 Range/Units 03:29 Calcium 8.5 L (8.6-10.8) mg/dL Albumin 3.1 L (3.5-5.0) g/dL Pituitary panel 04/12/17 Range/Units 03:29 Sodium 143 (136-145) mEq/L Potassium 3.5 (3.5-4.5) mEq/L Chloride 109 (98-109) mEq/L Carbon Dioxide 26 (19-29) mEq/L BUN 15 (8-26) mg/dL Creatinine 1.09 (0.72-1.25) mg/dL Glucose 117 H (70-99) mg/dL Calcium 8.5 L (8.6-10.8) mg/dL Adrenal panel 04/12/17 Range/Units 03:29 Sodium 143 (136-145) mEq/L Potassium 3.5 (3.5-4.5) mEq/L Chloride 109 (98-109) mEq/L Carbon Dioxide 26 (19-29) mEq/L BUN 15 (8-26) mg/dL Creatinine 1.09 (0.72-1.25) mg/dL Glucose 117 H (70-99) mg/dL Calcium 8.5 L (8.6-10.8) mg/dL Total Bilirubin 0.5 (0.2-1.2) mg/dL AST 22 (5-34) Units/L ALT 17 (0-55) Units/L Alkaline Phosphatase 58 (38-126) Units/L Albumin 3.1 L (3.5-5.0) g/dL All other labs normal. - Imaging Additional studies: Abdomen/Pelvis CT 04/11/17 14:20 IMPRESSION: 1. No acute abnormality in the abdomen/pelvis. 2. Diffuse bladder wall thickening, likely secondary to a combination of prior cystitis and sequela of chronic bladder outlet obstruction from an enlarged prostate gland. 3. Small cystic lesions in the pancreatic tail, which measure up to 7 mm in size. A follow-up pancreatic protocol MRI in 12 months is recommended for further evaluation, as outlined below. 4. Uncomplicated cholelithiasis. 5. Severe atherosclerosis. RECOMMENDATIONS: Managing Incidental Cystic Pancreatic Mass (Asymptomatic Patient) Lesion <2 cm: MRI using pancreatic mass protocol in 1 year (6 months if younger patient) Lesion 2-3 cm: characterize with MRI using pancreatic mass protocol Lesion >3 cm: Surgical referral recommended Reference: Monica et al. Managing Incidental Findings on Abdominal CT: White Paper of the ACR Incidental Findings Committee. J Am Bobby Radiol 2010;7:754-773 D/ 04/11/2017 15:24:56 Geovany Larson MD / xavier Interpreting Provider: Geovany Larson MD Consult Discharge Plan - Plan Referrals: Angelika Montalvo, RENETTA [Primary Care Provider] - 04/19/17 11:00 am - Attending Attestation For this encounter, I have reviewed the INFORMATION SYSTEMS AUDIT MANAGER or PA documentation, treatment plan, and medical decision making; and I have had face to face time with this patient.
--- NOTE | 2017-04-12 12:44 | Pre-Sedation Evaluation ---
Pre-sedation evaluation - Pre-sedation checklist Date of procedure: 04/12/17 Procedure: EGD Recent Vitals: Last Vital Signs Temp 98.3 F 04/12/17 11:25 Pulse 70 04/12/17 12:35 Resp 18 04/12/17 12:35 BP 155/79 04/12/17 12:35 Pulse Ox 98 04/12/17 12:35 H&P (including ROS) documented in medical record: Yes Previous reaction to sedatives/anesthetics: No Dietary Status: NPO after Midnight Dentition: No loose teeth or bridges ASA Classification *see protocol: CLASS III-Severe systemic disease Plan of Care: Pt appropriate candidate for procedure/moderate/conscious sedation , Risks/benefits of procedure/sedation discussed w/ patient/family
[2017-04-12] MEDS ORDERED: Nitroglycerin 0.4 MG TAB.SUBL SL PRN (12:58)
[2017-04-12] MEDS ORDERED: traMADol 50 MG TABLET PO PRN (12:58)
[2017-04-12] MEDS ORDERED: Dextrose Gel 15 GM PO PRN ×2 (12:58)
[2017-04-12] MEDS ORDERED: D5% in Water 1,000 ML IVC PRN (12:58)
[2017-04-12] MEDS ORDERED: Naloxone 0.4 MG/ML INJ IVP PRN (12:58)
[2017-04-12] MEDS ORDERED: *HR* Dextrose 50 % in Water (Syg) 50 ML SYRINGE IVP PRN (12:58)
[2017-04-12] MEDS ORDERED: Ondansetron 4 MG/2 ML VIAL IVP PRN (12:58)
--- NOTE | 2017-04-12 15:48 | Internal Med Progress Note ---
Date of Encounter: 04/12/17 Time of Encounter: 15:44 - Assessment and plan (1) Acute gastritis Current Visit: No Status: Acute Assessment and plan: Presented with abdominal pain for the last 3 weeks. Was in the process of outpatient workup for EGD. 04/12/17 EGD with small hiatal hernia, nodular mucosa in the cardia that was biopsied, multiple gastric polyps resected and retrieved, and evidence of gastritis was erythematous mucosa in the prepyloric region. Start Carafate 1 g 4 times a day for 4 weeks. Follow-up with general surgery outpatient. Qualifiers: Gastritis type: other gastritis Gastritis bleeding: without bleeding Qualified Code(s): K29.00 - Acute gastritis without bleeding (2) Coronary artery disease Current Visit: No Status: Chronic Assessment and plan: Per history. Asymptomatic, denies chest pain. Continue home Plavix, BB, statin. Qualifiers: Coronary Disease-Associated Artery/Lesion type: bypass graft [place] vs. transplanted heart: [place] heart Associated angina: without angina Qualified Code(s): I25.810 - Atherosclerosis of coronary artery bypass graft(s) without angina pectoris (3) Diabetes mellitus Current Visit: Yes Status: Chronic Assessment and plan: Per history. Continue SSI. Monitor blood sugars and titrate PRN Qualifiers: Diabetes mellitus type: type 2 Diabetes mellitus complication status: without complication Diabetes mellitus care home insulin use: without care home use Qualified Code(s): E11.9 - Type 2 diabetes mellitus without complications (4) DVT prophylaxis Current Visit: Yes Status: Acute Assessment and plan: Heparin - Subjective Interval history: Seen and examined at bedside. Patient is new to me, information obtained from chart review and patient report. Patient says he feels about the same regarding abdominal discomfort. Says symptoms have been present off and on for the last 3 weeks[address] Had appointment with Dr. Mei for outpatient EGD today. He does have an appetite and would like to eat when able. Denies chest pain, no shortness of breath. No nausea vomiting or diarrhea or constipation my exam. - Constitutional Vitals: Temp Pulse Resp BP Pulse Ox 97.3 F L 55 16 125/73 98 04/12/17 15:21 04/12/17 15:21 04/12/17 15:21 04/12/17 15:21 04/12/17 15:21 General appearance: Present: cooperative, A&O X 3, no acute distress, answers questions appropriately - Head Head exam: Present: atraumatic, normocephalic - Eye Eye exam: Present: PERRL, conjuntiva pink, sclera anicteric Pupils: Present: PERRL - Neck Neck exam general surgery: Present: supple, trachea midline. Absent: lymphadenopathy - Respiratory Respiratory exam: Present: CTAB. Absent: accessory muscle use, rales, rhonchi, wheezes - Cardiovascular Cardiovascular exam: Present: RRR, +S1, +S2. Absent: diastolic murmur, gallop, rubs, systolic murmur - GI/Abdominal GI/Abdominal exam: Present: normal bowel sounds, soft, no peritoneal signs. Absent: distended, tenderness - Extremities Exam Extremities exam: Present: warm, radial pulses palpable and symmetrical. Absent : calf tenderness, cyanotic, pedal edema - Neurological Exam Neurological exam: Present: CN II-XII intact, oriented X3, no focal deficits. Absent: pronater drift, facial droop, speech deficit - Skin Skin exam: Present: dry, intact Internal Medicine: Result - Labs CBC & Chem 7: 04/12/17 03:29 04/12/17 03:29 Labs: Short CBC 04/12/17 Range/Units 03:29 WBC 8.3 (4.3-11.1) K/mcL Hgb 11.9 L D (12.9-16.9) g/dL Hct 35.2 L (37.5-50.1) % Plt Count 175 (140-400) K/mcL Neutrophils # 5.6 (1.6-8.9) K/mcL BMP 04/12/17 03:29 Sodium 143 Potassium 3.5 Chloride 109 Carbon Dioxide 26 BUN 15 Creatinine 1.09 Glucose 117 H Calcium 8.5 L Liver Function 04/12/17 Range/Units 03:29 Total Bilirubin 0.5 (0.2-1.2) mg/dL AST 22 (5-34) Units/L ALT 17 (0-55) Units/L Alkaline Phosphatase 58 (38-126) Units/L Albumin 3.1 L (3.5-5.0) g/dL Consult Discharge Plan - Plan Referrals: Angelika Montalvo, CIVIL ENGINEERING DESIGNER [Primary Care Provider] - 04/19/17 11:00 am
--- NOTE | 2017-04-12 16:08 | Electrocardiograph Report ---
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
[2017-04-12] MEDS: Pantoprazole 40 MG VIAL IVP SCH (18:27)
[2017-04-12] MEDS: *HR* Heparin 5,000 UNIT/ML VIAL SQ SCH (18:33)
[2017-04-12] MEDS ORDERED: Insulin LISPRO 300 UNITS/3 ML VIAL SQ SCH (21:00)
[2017-04-13] MEDS: *HR* Heparin 5,000 UNIT/ML VIAL SQ SCH (06:20)
[2017-04-13] MEDS: Pantoprazole 40 MG VIAL IVP SCH (06:20)
[2017-04-13] MEDS: Insulin LISPRO 300 UNITS/3 ML VIAL SQ SCH (07:49)
[2017-04-13] MEDS: Gabapentin 300 MG CAPSULE PO SCH (08:18)
[2017-04-13] MEDS ORDERED: GLUCOSAMINE PO SCH (09:00)
[2017-04-13] MEDS ORDERED: Multivit/Ca/Min/Fe/FA 1 TAB TABLET PO SCH (09:00)
[2017-04-13] MEDS ORDERED: [UNRECOGNIZED DRUG - OTHER] PO SCH (09:00)
[2017-04-13] MEDS ORDERED: CHONDROITIN PO SCH (09:00)
--- NOTE | 2017-04-13 09:46 | Discharge Summary ---
Date of Encounter: 04/13/17 Time of Encounter: 09:43 - Discharge Diagnosis (1) Acute gastritis Priority: Primary Status: Acute Qualifiers: Gastritis type: other gastritis Gastritis bleeding: without bleeding Qualified Code(s): K29.00 - Acute gastritis without bleeding (2) Coronary artery disease Priority: Secondary Status: Chronic Qualifiers: Coronary Disease-Associated Artery/Lesion type: bypass graft [place] vs. transplanted heart: [place] heart Associated angina: without angina Qualified Code(s): I25.810 - Atherosclerosis of coronary artery bypass graft(s) without angina pectoris (3) Diabetes mellitus Priority: Secondary Status: Chronic Qualifiers: Diabetes mellitus type: type 2 Diabetes mellitus complication status: without complication Diabetes mellitus prison insulin use: without moth exterminator use Qualified Code(s): E11.9 - Type 2 diabetes mellitus without complications (4) DVT prophylaxis Priority: Secondary Status: Acute - Discharge Medications Prescriptions: Sucralfate [Carafate] 1 gm PO QID #120 tablet Home Medications: Caffeine 200 mg PO DAILY PRN 12/10/14 [History] Glucosa Pierre 2Kcl/Chondroitin Pierre [Glucosamine & Chondroitin Cap] 1 cap PO DAILY [History] Multivitamin/Iron/Folic Acid [Centrum Complete Multivit Tab] 1 tab PO DAILY 04/14 [History] Nitroglycerin [Nitrostat] 0.4 mg SL AD 12/10/14 [History] Omeprazole [PriLOSEC] 40 mg PO DAILY 12/10/14 [History] Quinapril/Hydrochlorothiazide [Quinapril-Hctz 10-12.5 mg Tab] 1 tab PO DAILY 04/14 [History] Rosuvastatin [Crestor] 40 mg PO DAILY 12/10/14 [History] Clopidogrel [Plavix] 75 mg PO DAILY 02/14/17 [History] Tramadol HCl [Ultram] 50 mg PO TID PRN 02/14/17 [History] Carvedilol [Coreg] 25 mg PO BID 04/11/17 [History] Gabapentin [Neurontin] 600 mg PO TID 04/11/17 [History] metFORMIN [Glucophage] 1,000 mg PO BIDWM 04/11/17 [History] Sucralfate [Carafate] 1 gm PO QID #120 tablet 04/13/17 [Rx] Allergies/Adverse Reactions: 3 Allergy/AdvReac Type Severity Reaction Status Date / Time No Known Allergies Allergy Verified 04/11/17 14:03 Date of admission: 04/11/17 17:04 Primary care physician: Angelika Montalvo CNP Consults: 04/11/17 16:53 Consult to Traveling Phlebotomist [CONS] Stat Reason for SW Consult: lives alone, establish plan of care and resources at home Discharging clinician: Guanako Frost Anticipated date of discharge: 04/13/17 - Patient Status Disposition: Home, Self-Care Condition: Good Functional capacity at discharge: independent ambulation Overall status at discharge: patient is progressing back to baseline - Discharge Instructions Instructions: Acute Nausea and Vomiting (DC), Acute Abdominal Pain (DC) Follow Up With: Roslyn Puente MD [Partnered Physician] - 05/11/17 9:55 am Angelika Montalvo CNP [Primary Care Provider] - 04/19/17 11:00 am Additional Instructions: Follow up with Dr. Puente for biopsy results. Avoid caffeine, NSAIDS - Diet and Activity Activity: increase activity as tolerated Diet: low fat, low cholesterol, low salt diet Hospital course: Mr. Clark is a 71 year old male patient with a history of diabetes mellitus, hypertension who presented to the ER with complaints of abdominal pain and nausea. He was evaluated in the ER with a CT scan of the abdomen and pelvis which showed small cystic lesions in the pancreatic tail and uncomplicated cholelithiasis along with diffuse bladder wall thickening. Given his symptoms of nausea and epigastric pain, he was evaluated by surgery and per their recommendation underwent upper GI endoscopy. Patient was found to have significant gastritis and erythematous mucosa in the prepyloric region of the stomach which was biopsied. He also had small hiatal hernia. Surgery recommends the patient take Carafate 1 g tabs 4 times a day for 4 weeks and then will follow-up with him in the clinic. He is now tolerating oral diet well and is feeling much better. He is clinically stable to be discharged home. He is advised to avoid caffeine products and oral NSAIDs. - Time Spent with Patient Total time spent providing and/or coordinating discharge services: Less than 30 minutes (25 min) - Constitutional Vitals: Temp Pulse Resp BP Pulse Ox 98.0 F 85 18 125/59 94 04/13/17 07:16 04/13/17 07:16 04/13/17 07:16 04/13/17 07:16 04/13/17 07:16 General appearance: Present: cooperative, A&O X 3, no acute distress, answers questions appropriately - Respiratory Respiratory exam: Present: CTAB. Absent: accessory muscle use, rales, rhonchi, wheezes - Cardiovascular Cardiovascular exam: Present: RRR, +S1, +S2. Absent: diastolic murmur, gallop, rubs, systolic murmur - GI/Abdominal GI/Abdominal exam: Present: normal bowel sounds, soft, no peritoneal signs. Absent: distended, tenderness
[2017-04-13 11:04] VITALS: BP 114/68
--- NOTE | 2017-04-13 11:06 | Event Note ---
Date of Encounter: 04/13/17 Time of Encounter: 11:03 Findings of recent upper G.I. endoscopy with Dr. Puente on 04/12/2017 reviewed with Mr. Clark including normal ampulla, duodenal bulb and 1st portion of the duodenum, gastritis which was biopsy, erythematous mucosa in the pre-pyloric region of the stomach was biopsy, multiple gastric polyps which were resected and retrieved, nodular mucosa in the Cardia which was biopsy, and a small hiatal hernia. He is recommended to take Carafate 1 g PO 4 times a day for 4 weeks and a follow-up in the office in 4 weeks. Of note, he states he cannot afford these liquid Carafate and I will therefore switch him to 1 g pills 4 times daily. - Patient Status Disposition: Home, Self-Care Condition: Good Functional capacity at discharge: independent ambulation Overall status at discharge: patient is progressing back to baseline - Discharge Instructions Follow Up With: Angelika Montalvo CNP [Primary Care Provider] - 04/19/17 11:00 am Roslyn Puente MD [Partnered Physician] - 05/11/17 9:55 am Additional Instructions: Follow up with Dr. Puente for biopsy results. Avoid caffeine, NSAIDS - Diet and Activity Activity: increase activity as tolerated Diet: advance to your usual diet - Transfer Medications Prescriptions: Sucralfate [Carafate] 1 gm PO QID #120 tablet Home Medications: Caffeine 200 mg PO DAILY PRN 12/10/14 [History] Glucosa Pierre 2Kcl/Chondroitin Pierre [Glucosamine & Chondroitin Cap] 1 cap PO DAILY [History] Multivitamin/Iron/Folic Acid [Centrum Complete Multivit Tab] 1 tab PO DAILY 04/14 [History] Nitroglycerin [Nitrostat] 0.4 mg SL AD 12/10/14 [History] Omeprazole [PriLOSEC] 40 mg PO DAILY 12/10/14 [History] Quinapril/Hydrochlorothiazide [Quinapril-Hctz 10-12.5 mg Tab] 1 tab PO DAILY 04/14 [History] Rosuvastatin [Crestor] 40 mg PO DAILY 12/10/14 [History] Clopidogrel [Plavix] 75 mg PO DAILY 02/14/17 [History] Tramadol HCl [Ultram] 50 mg PO TID PRN 02/14/17 [History] Carvedilol [Coreg] 25 mg PO BID 04/11/17 [History] Gabapentin [Neurontin] 600 mg PO TID 04/11/17 [History] metFORMIN [Glucophage] 1,000 mg PO BIDWM 04/11/17 [History] Sucralfate [Carafate] 1 gm PO QID #120 tablet 04/13/17 [Rx] Allergies/Adverse Reactions: 3 Allergy/AdvReac Type Severity Reaction Status Date / Time No Known Allergies Allergy Verified 04/11/17 14:03
== END 2017-04-13 13:15 | disposition home or self-care (01) ==
LOC: 3BNU 13:50 → EMEROO 13:50 → SUATTDRO 17:04 → 3BNU 18:05
PROVIDERS: ADMIT Internal Medicine; ATTEND Internal Medicine
PROC: ENDOEBX (2017-04-12 11:30)

== ENCOUNTER 2017-10-19 11:07 | Observation (INO) ==
--- NOTE | 2017-10-19 11:26 | Emergency Department Note ---
Disposition Clinical Impression: Diarrhea Qualifiers: Diarrhea type: unspecified type Qualified Code(s): R19.7 - Diarrhea, unspecified Chest pain Qualifiers: Chest pain type: unspecified Qualified Code(s): R07.9 - Chest pain, unspecified Disposition: Admitted As Inpatient Condition: Good Referrals: Angelika Montalvo CNP [Primary Care Provider] - Forms: ED Satisfaction Letter Time of Disposition: 15:32 General Adult HPI - General Chief complaint: ED Chest Pain Stated complaint: Chest burning Time Seen by Provider: 10/19/17 11:24 Nursing Notes Reviewed: Yes Vital Signs Reviewed: Yes - History of Present Illness HPI Narrative: 71-year-old male presents from home after calling nurse Wendie at 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 Patient's symptoms are described as a with substernal chest discomfort with generalized weakness, nausea and hot/cold sweats. This began last night. Patient notes his discomfort has been constant for about the past week with nothing noted to improve or worsen his symptoms. His nausea is chronic from March 2017. He does have a home prescription of promethazine which he has not taken today for his nausea. His new symptom is the hot/cold sweats. PMH: Hypertension, hyperlipidemia, diabetes, history of [place] status post stent 3 and CABG. No history of COPD; patient has never smoked. ROS: Positive: As above Negative: Fever, chills, vomiting, palpitations, unusual back pain, abdominal pain, dysuria, changes in bowel or bladder habits. Pain Scale: 0 - Related Data Home Medications Medication Instructions Recorded Confirmed Multivitamin/Iron/Folic Acid 1 tab PO DAILY 12/10/14 10/19/17 [Centrum Complete Multivit Tab] Clopidogrel [Plavix] 75 mg PO DAILY 02/14/17 10/19/17 Carvedilol [Coreg] 25 mg PO BID 04/11/17 10/19/17 metFORMIN [Glucophage] 1,000 mg PO BIDWM 04/11/17 10/19/17 Aspirin 81 mg PO DAILY 06/26/17 10/19/17 Isosorbide MONOnitrate (24 HR) 30 mg PO DAILY 10/19/17 10/19/17 [Imdur] Nitroglycerin [Nitroglycerin] 0.4 mg PO Q5MIN PRN 10/19/17 10/19/17 Omeprazole [PriLOSEC] 40 mg PO DAILY 10/19/17 10/19/17 Pregabalin [Lyrica] 75 mg PO BID 10/19/17 10/19/17 Promethazine [Phenergan] 25 mg PO DAILY PRN 10/19/17 10/19/17 Quinapril/Hydrochlorothiazide 1 tab PO DAILY 10/19/17 10/19/17 [Quinapril-Hctz 10-12.5 mg Tab] Rosuvastatin Calcium [Rosuvastatin 40 mg PO DAILY 10/19/17 10/19/17 Calcium] Allergies Allergy/AdvReac Type Severity Reaction Status Date / Time No Known Allergies Allergy Verified 10/19/17 14:26 All systems ED: reviewed and negative except as stated. Review of Systems: As Per HPI Past Medical History - Past Medical History Medical history: Reports: coronary artery disease, diabetes, GERD, hyperlipidemia, hypertension, other Surgical history: Reports: angioplasty/stent, cholecystectomy, coronary bypass ( CABG), other Psychiatric history: Reports: no psych history - Social History Smoking Status: Never smoker Smokeless Tobacco Status: No Alcohol use: Reports: none Drug use: Reports: none Physical Exam Vital Signs Reviewed General: Patient is alert, oriented, and in no acute distress. Head: atraumatic, normocephalic Eye: normal appearance, no scleral icterus, no conjunctival injection ENT: mucous membranes moist, normal external ear exam Neck: normal inspection, trachea midline, full ROM Chest: normal inspection, symmetric chest rise Respiratory: Good respiratory effort. Bilateral breath sounds are clear without wheezing, crackles, or rhonchi. Cardiovascular: Regular rate and rhythm. No clicks, rubs, gallops, or murmors. Normal heart sounds. Left radial pulse 2/4. Abdomen: Bowel sounds present normoactive x-4 quadrants. Abdomen is soft, nondistended, and nontender. No guarding or rebound. No organomegaly noted. Musculoskeletal: Spontaneously moving all extremities. Amputation of right distal forearm; well-healed. Skin: warm, dry, intact. Neuro: Alert and oriented x4. Sensation light touch intact. Psych: Patient's affect is appropriate for situation. Course Course Narrative: EKG dated 10/19/17 at 11:11 interpreted as sinus rhythm with rate of 99. Normal intervals of AR 164, QRS 86, QTC 47. PVCs. Left axis. Nonspecific ST-T changes. Compared to previous dated 05/04/2017 showing no acute ischemic changes or comparison. -Patient had a nuclear exercise stress test 2 days ago that was negative for ischemia however patient did have chest discomfort during exercise; EF 31% at that time, PVCs present, inferior lateral segments and apex with severe to absent reduction in perfusion. -Cardiac catheterization 2 years ago with EF 40-45%. -TN with stent 3 in 2011. CABG in 2002. On reevaluation by my attending, patient mentions a 2 day history of loose stools with lower abdominal pain. CT abdomen pelvis without contrast performed or concern of potential colitis. CT scan for etiology read shows no acute findings. Hematology is unremarkable Serum chemistries unremarkable; specifically normal hepatic enzymes, normal pancreatic enzyme, in troponin within normal limits. Discussed the patient with the admitting hospitalist, Dr. Cruz, who agrees to accept the patient for continued evaluation and management of chest pain rule out ACS. Chest X-Ray 10/19/17 11:33 IMPRESSION: No acute pulmonary finding. D/ / Tony France MD / Tony France MD Interpreting Provider: Tony France MD Abdomen/Pelvis CT 10/19/17 13:26 IMPRESSION: 1. Bilateral renal cysts largest 4.2 cm on the right and 4.5 cm on the left. 2. Posterior right lobe of liver 9 mm lesion with appearance suggestive of a hemangioma. Not well visualized on prior. Six-month follow-up CT or MRI liver mass protocol may be obtained to confirm stability. 3. No CT evidence for colitis. Absence of oral contrast limits evaluation of the GI tract. 4. Prostate gland enlargement. D/ / Rony Romero MD / Rony Romero MD Interpreting Provider: Rony Romero MD Vital Signs Temperature 98.3 F 10/19/17 11:09 Pulse Rate 92 10/19/17 11:09 Respiratory Rate 16 10/19/17 11:09 Blood Pressure 101/64 10/19/17 11:09 O2 Sat by Pulse Oximetry 97 10/19/17 11:09 Temperature 98.3 F 10/19/17 11:11 Pulse Rate 81 10/19/17 14:51 Respiratory Rate 21 10/19/17 14:51 Blood Pressure 113/72 10/19/17 14:51 O2 Sat by Pulse Oximetry 99 10/19/17 14:51 Oxygen Delivery Oxygen Delivery Room Air Medical Decision Making - Lab Data Result diagrams: 10/19/17 11:46 10/19/17 11:46 Lab Results 10/19/17 10/19/17 10/19/17 Range/Units 11:46 11:46 11:46 WBC 9.5 (4.3-11.1) K/mcL RBC 4.66 (4.19-5.50) M/mcL Hgb 12.7 L (12.9-16.9) g/dL Hct 38.6 (37.5-50.1) % MCV 82.8 L (83.0-100.0) fL MCH 27.3 L (28.0-33.3) pg MCHC 32.9 (31.6-35.5) g/dL RDW 14.2 (11.5-14.5) % Plt Count 213 (140-400) K/mcL MPV 10.9 (9.4-12.4) fL Immature Gran % 0.2 (0-4) % Seg Neutrophils % 75.7 % Lymphocytes % 16.2 % Monocytes % 7.3 % Eosinophils % 0.4 % Basophils % 0.2 % Neutrophils # 7.2 (1.6-8.9) K/mcL Lymphocytes # 1.5 (0.6-4.6) K/mcL Monocytes # 0.7 (0.0-1.3) K/mcL Eosinophils # 0.0 (0.0-0.6) K/mcL Basophils # 0.0 (0.0-0.2) K/mcL PT 11.3 (9.4-12.1) Seconds INR 1.1 APTT 28.1 (26.0-36.0) Seconds Sodium 139 (136-145) mEq/L Potassium 3.7 (3.5-5.1) mEq/L Chloride 104 (98-107) mEq/L Carbon Dioxide 25 (23-29) mEq/L BUN 23 (8-23) mg/dL Creatinine 1.18 (0.70-1.30) mg/dL Est GFR ( Amer) > 60 (> 60) Est GFR (Non-Af Amer) > 60 (> 60) BUN/Creatinine Ratio 19 (6-26) Glucose 194 H (70-105) mg/dL Calculated Osmolality 297 (280-300) Lactic Acid (0.5-2.2) mmol/L Calcium 9.8 (8.6-10.3) mg/dL Total Bilirubin (0.3-1.0) mg/dL Direct Bilirubin (0.0-0.2) mg/dL Indirect Bilirubin (0.0-1.2) mg/dL AST (13-39) Units/L ALT (7-52) Units/L Alkaline Phosphatase (34-104) Units/L Troponin I < 0.03 (< 0.04) ng/mL Serum Total Protein (6.4-8.9) g/dL Albumin (3.5-5.7) g/dL Globulin (2.4-3.5) g/dL Albumin/Globulin Ratio (1.1-2.2) Lipase (11-82) Units/L 10/19/17 10/19/17 Range/Units 12:34 12:34 WBC (4.3-11.1) K/mcL RBC (4.19-5.50) M/mcL Hgb (12.9-16.9) g/dL Hct (37.5-50.1) % MCV (83.0-100.0) fL MCH (28.0-33.3) pg MCHC (31.6-35.5) g/dL RDW (11.5-14.5) % Plt Count (140-400) K/mcL MPV (9.4-12.4) fL Immature Gran % (0-4) % Seg Neutrophils % % Lymphocytes % % Monocytes % % Eosinophils % % Basophils % % Neutrophils # (1.6-8.9) K/mcL Lymphocytes # (0.6-4.6) K/mcL Monocytes # (0.0-1.3) K/mcL Eosinophils # (0.0-0.6) K/mcL Basophils # (0.0-0.2) K/mcL PT (9.4-12.1) Seconds INR APTT (26.0-36.0) Seconds Sodium (136-145) mEq/L Potassium (3.5-5.1) mEq/L Chloride (98-107) mEq/L Carbon Dioxide (23-29) mEq/L BUN (8-23) mg/dL Creatinine (0.70-1.30) mg/dL Est GFR ( Amer) (> 60) Est GFR (Non-Af Amer) (> 60) BUN/Creatinine Ratio (6-26) Glucose (70-105) mg/dL Calculated Osmolality (280-300) Lactic Acid 2.1 (0.5-2.2) mmol/L Calcium (8.6-10.3) mg/dL Total Bilirubin 0.7 (0.3-1.0) mg/dL Direct Bilirubin 0.2 (0.0-0.2) mg/dL Indirect Bilirubin 0.5 (0.0-1.2) mg/dL AST 22 (13-39) Units/L ALT 17 (7-52) Units/L Alkaline Phosphatase 59 (34-104) Units/L Troponin I (< 0.04) ng/mL Serum Total Protein 6.8 (6.4-8.9) g/dL Albumin 4.1 (3.5-5.7) g/dL Globulin 2.7 (2.4-3.5) g/dL Albumin/Globulin Ratio 1.5 (1.1-2.2) Lipase 50 (11-82) Units/L
[2017-10-19] MEDS ORDERED: Aspirin 81 MG TAB.CHEW PO ONE (11:33)
[2017-10-19 12:00] LABS: Basophils % 0.2 %; Eosinophils % 0.4 %; Hematocrit 38.6 % (37.5-50.1); Hemoglobin 12.7 g/dL (12.9-16.9); Immature Granulocytes % 0.2 % (0-4); Lymphocytes # 1.5 K/mcL (0.6-4.6); Lymphocytes % 16.2 %; Mean Corpuscular HGB Conc 32.9 g/dL (31.6-35.5); Mean Corpuscular Hemoglobin 27.3 pg (28.0-33.3); Mean Corpuscular Volume 82.8 fL (83.0-100.0); Mean Platelet Volume 10.9 fL (9.4-12.4); Monocytes # 0.7 K/mcL (0.0-1.3); Monocytes % 7.3 %; Neutrophils # 7.2 K/mcL (1.6-8.9); Platelet Count 213 K/mcL (140-400); Red Blood Count 4.66 M/mcL (4.19-5.50); Red Cell Distribution Width 14.2 % (11.5-14.5); Segmented Neutrophils % 75.7 %
[2017-10-19 12:09] LABS: INR 1.1; Prothrombin Time 11.3 Seconds (9.4-12.1)
[2017-10-19 12:11] LABS: Activated Partial Thrombo Time 28.1 Seconds (26.0-36.0)
[2017-10-19 12:19] LABS: Troponin I < 0.03 ng/mL (< 0.04)
[2017-10-19] MEDS ORDERED: 0.9 % Sodium Chloride 1,000 ML IVC ONE (12:22)
--- NOTE | 2017-10-19 12:32 | Emergency Department Note ---
Disposition Clinical Impression: Diarrhea Qualifiers: Diarrhea type: unspecified type Qualified Code(s): R19.7 - Diarrhea, unspecified Disposition: Admitted As Inpatient Referrals: Angelika Montalvo BEAD STRINGER [Primary Care Provider] - Forms: ED Satisfaction Letter General Adult HPI - General Chief complaint: ED Chest Pain Stated complaint: Chest burning Time Seen by Provider: 10/19/17 11:24 - History of Present Illness Pain Scale: 0 - Related Data Home Medications Medication Instructions Recorded Confirmed Caffeine 200 mg PO DAILY PRN 12/10/14 06/26/17 Glucosa Pierre 2Kcl/Chondroitin Pierre 1 cap PO DAILY 12/10/14 06/26/17 [Glucosamine & Chondroitin Cap] Multivitamin/Iron/Folic Acid 1 tab PO DAILY 12/10/14 06/26/17 [Centrum Complete Multivit Tab] Nitroglycerin [Nitrostat] 0.4 mg SL AD 12/10/14 06/26/17 Omeprazole [PriLOSEC] 40 mg PO DAILY 12/10/14 06/26/17 Quinapril/Hydrochlorothiazide 1 tab PO DAILY 12/10/14 06/26/17 [Quinapril-Hctz 10-12.5 mg Tab] Rosuvastatin [Crestor] 40 mg PO DAILY 12/10/14 06/26/17 Clopidogrel [Plavix] 75 mg PO DAILY 02/14/17 06/26/17 Tramadol HCl [Ultram] 50 mg PO TID PRN 02/14/17 06/26/17 Carvedilol [Coreg] 25 mg PO BID 04/11/17 06/26/17 Gabapentin [Neurontin] 600 mg PO TID 04/11/17 06/26/17 metFORMIN [Glucophage] 1,000 mg PO BIDWM 04/11/17 06/26/17 Aspirin 81 mg PO DAILY 06/26/17 06/26/17 Previous Rx's Medication Instructions Recorded Sucralfate [Carafate] 1 gm PO QID #120 tablet 04/13/17 Famotidine [Pepcid] 40 mg PO DAILY #14 tablet 05/04/17 Docusate [Colace] 100 mg PO BID #30 capsule 06/26/17 OxyCODONE/APAP 5/325 [Percocet 1 each PO Q4HR PRN 5 Days #25 06/26/17 5/325 MG] tablet Allergies Allergy/AdvReac Type Severity Reaction Status Date / Time No Known Allergies Allergy Verified 06/26/17 12:54 Past Medical History - Past Medical History Medical history: Reports: coronary artery disease, diabetes, GERD, hyperlipidemia, hypertension, other Surgical history: Reports: angioplasty/stent, cholecystectomy, coronary bypass ( CABG), other Psychiatric history: Reports: no psych history - Social History Smoking Status: Never smoker Smokeless Tobacco Status: No Alcohol use: Reports: none Drug use: Reports: none Course Vital Signs Temperature 98.3 F 10/19/17 11:09 Pulse Rate 92 10/19/17 11:09 Respiratory Rate 16 10/19/17 11:09 Blood Pressure 101/64 10/19/17 11:09 O2 Sat by Pulse Oximetry 97 10/19/17 11:09 Temperature 98.3 F 10/19/17 11:11 Pulse Rate 92 10/19/17 11:11 Respiratory Rate 16 10/19/17 11:11 Blood Pressure 101/64 10/19/17 11:11 O2 Sat by Pulse Oximetry 97 10/19/17 11:11 Oxygen Delivery Oxygen Delivery Room Air Medical Decision Making - Lab Data Result diagrams: 10/19/17 11:46 Lab Results 10/19/17 10/19/17 Range/Units 11:46 11:46 WBC 9.5 (4.3-11.1) K/mcL RBC 4.66 (4.19-5.50) M/mcL Hgb 12.7 L (12.9-16.9) g/dL Hct 38.6 (37.5-50.1) % MCV 82.8 L (83.0-100.0) fL MCH 27.3 L (28.0-33.3) pg MCHC 32.9 (31.6-35.5) g/dL RDW 14.2 (11.5-14.5) % Plt Count 213 (140-400) K/mcL MPV 10.9 (9.4-12.4) fL Immature Gran % 0.2 (0-4) % Seg Neutrophils % 75.7 % Lymphocytes % 16.2 % Monocytes % 7.3 % Eosinophils % 0.4 % Basophils % 0.2 % Neutrophils # 7.2 (1.6-8.9) K/mcL Lymphocytes # 1.5 (0.6-4.6) K/mcL Monocytes # 0.7 (0.0-1.3) K/mcL Eosinophils # 0.0 (0.0-0.6) K/mcL Basophils # 0.0 (0.0-0.2) K/mcL Troponin I < 0.03 (< 0.04) ng/mL Attestation Statement - Attestation Attestation: I examined this patient and my medical decision-making was reviewed with the Resident Physician. I agree with the documented findings, disposition and treatment plan as described except to the extent set forth below. 71 year old male presnte to the ED with complaitns of diaphoresisi, chest burning and let hand tingling. Corwin states that he has been dealing with diarrhea over the past few days feeling incresingly more weak and has been havig incrased diaphoretic spells. Corwin states he was concerend that this was his heart and called the cardiology offfice who instructed him to come to the ED for further evlaution. Corwin had a stress test which he expereinced chest burning with decreased EF from 40 to 31% which was done two days ago. Shabnam states that this is simliar but much more minor to his episode in 2015 where he had 3 stents placed. We will evaluted for diarhea and rule out colitis in addition to ACS workup. He conor be admitted to the hospital
[2017-10-19 12:42] LABS: BUN/Creatinine Ratio 19 (6-26); Blood Urea Nitrogen 23 mg/dL (8-23); Calcium 9.8 mg/dL (8.6-10.3); Carbon Dioxide 25 mEq/L (23-29); Chloride 104 mEq/L (98-107); Glucose 194 mg/dL (70-105); Osmolality,Calculated 297 (280-300); Potassium 3.7 mEq/L (3.5-5.1); Sodium 139 mEq/L (136-145); eGFR For African Americans > 60 (> 60); eGFR For Non-African Americans > 60 (> 60)
[2017-10-19 13:08] LABS: Albumin 4.1 g/dL (3.5-5.7); Albumin/Globulin Ratio 1.5 (1.1-2.2); Bilirubin,Direct 0.2 mg/dL (0.0-0.2); Bilirubin,Indirect 0.5 mg/dL (0.0-1.2); Bilirubin,Total 0.7 mg/dL (0.3-1.0); Globulin 2.7 g/dL (2.4-3.5); Total Protein 6.8 g/dL (6.4-8.9)
[2017-10-19] MEDS ORDERED: Isovue-370 500 ML INFUS..BTL IV ONE (13:26)
--- NOTE | 2017-10-19 19:17 | Internal Med History&Physical ---
Date of Encounter: 10/19/17 Time of Encounter: 18:00 Internal Medicine - H&P: HPI Chief complaint: Chest pain Admitted From: Home Plans for Post Hospital Care: Home History of present illness: Patient is a 71-year-old male with past medical history significant for CABG, coronary toe disease, hyperlipidemia, hypertension and diabetes who presents to the ER on 10/19/17 due to chest pain. She reports a sudden onset of chest pain which she describes as burning without any provoking or relieving factors and denies any radiation of pain. Patient reported associated symptoms of hot sweating. In the ER, patients first set cardiac biomarkers were negative. Patient will be admitted to the medical surgical floor for ACS rule out. Past Med Surg Social Fam HX - Past Medical History Medical history: coronary artery disease, diabetes, GERD, hyperlipidemia, hypertension, other Additional medical history: colon polyps, gastritis Psychiatric history: no psych history - Past Surgical History Surgical History: angioplasty/stent, cholecystectomy, coronary bypass (CABG), other Additional surgical history: amputation right hand, colonoscopy, egd - Social History Smoking Status: Never smoker Smokeless Tobacco Status: No Alcohol use: none Drug use: none - Family History Father Living Status: Hx Family Cardiac Disorders: Yes (CAD) Hx Family Endocrine Disorder: Yes (Diabetes Mellitus) Mother Living Status: Hx Family Cardiac Disorders: Yes (CAD) Sister Living Status: Still Living Hx Family Cancer: Yes (Breast cancer) Hx Family Neuromuscular Disorders: Yes (Scoliosis) Internal Medicine - H&P: Meds Multivitamin/Iron/Folic Acid [Centrum Complete Multivit Tab] 1 tab PO DAILY 04/14 [History] Clopidogrel [Plavix] 75 mg PO DAILY 02/14/17 [History] Carvedilol [Coreg] 25 mg PO BID 04/11/17 [History] metFORMIN [Glucophage] 1,000 mg PO BIDWM 04/11/17 [History] Aspirin 81 mg PO DAILY 06/26/17 [History] Isosorbide MONOnitrate (24 HR) [Imdur] 30 mg PO DAILY 10/19/17 [History] Nitroglycerin [Nitroglycerin] 0.4 mg PO Q5MIN PRN 10/19/17 [History] Omeprazole [PriLOSEC] 40 mg PO DAILY 10/19/17 [History] Pregabalin [Lyrica] 75 mg PO BID 10/19/17 [History] Promethazine [Phenergan] 25 mg PO DAILY PRN 10/19/17 [History] Quinapril/Hydrochlorothiazide [Quinapril-Hctz 10-12.5 mg Tab] 1 tab PO DAILY [History] Rosuvastatin Calcium [Rosuvastatin Calcium] 40 mg PO DAILY 10/19/17 [History] 3 Allergy/AdvReac Type Severity Reaction Status Date / Time No Known Allergies Allergy Verified 10/19/17 14:26 All Systems PM: A 10-system review of systems was performed and is negative for pertinent findings except as documented above in the HPI. - Constitutional Vitals: Temp Pulse Resp BP Pulse Ox 98.1 F 65 16 129/76 91 10/19/17 19:03 10/19/17 19:03 10/19/17 19:03 10/19/17 19:03 10/19/17 19:03 General appearance: Present: A&O X 3, no acute distress - Eye Eye exam: Present: normal appearance - ENT ENT exam: Present: mucous membranes moist - Respiratory Respiratory exam: Present: CTAB. Absent: accessory muscle use, rales, rhonchi, wheezes - Cardiovascular Cardiovascular exam: Present: RRR, +S1, +S2. Absent: diastolic murmur, gallop, rubs, systolic murmur - GI/Abdominal GI/Abdominal exam: Present: normal bowel sounds, soft, no peritoneal signs. Absent: distended, tenderness - Extremities Exam Extremities exam: Absent: pedal edema - Neurological Exam Neurological exam: Present: oriented X3 - Psychiatric Psychiatric exam: Present: normal mood - Skin Skin exam: Present: normal color Internal Med - H&P Results - Labs CBC & Chem 7: 10/19/17 11:46 10/19/17 11:46 - Assessment and plan (1) Chest pain Current Visit: Yes Status: Acute Assessment and plan: First set of cardiac biomarkers negative Will trend troponins and monitor on telemetry Qualifiers: Chest pain type: unspecified Qualified Code(s): R07.9 - Chest pain, unspecified (2) Hypertension Current Visit: No Status: Chronic Assessment and plan: Continue home medications Qualifiers: Qualified Code(s): I10 - Essential (primary) hypertension (3) Diabetes mellitus Current Visit: No Status: Chronic Assessment and plan: Will cover with sliding scale insulin hold metformin Qualifiers: Qualified Code(s): E11.9 - Type 2 diabetes mellitus without complications (4) DVT prophylaxis Current Visit: No Status: Acute Assessment and plan: Subcutaneous heparin - Time Spent With Patient Total time spent is greater than 50% in coordination of care (as documented) at patient's floor/unit and/or counseling patient:
[2017-10-19] MEDS ORDERED: Naloxone 0.4 MG/ML INJ IVP PRN (19:23)
[2017-10-19] MEDS ORDERED: Nitroglycerin 0.4 MG TAB.SUBL SL PRN (23:19)
[2017-10-19] MEDS ORDERED: D5% in Water 1,000 ML IVC PRN (23:22)
[2017-10-19] MEDS ORDERED: Dextrose Gel 15 GM/37.5 ML TUBE PO PRN ×2 (23:22)
[2017-10-19] MEDS ORDERED: *HR* Dextrose 50 % in Water (Syg) 50 ML SYRINGE IVP PRN (23:22)
[2017-10-20] MEDS: Insulin LISPRO 300 UNITS/3 ML VIAL SQ SCH ×5 (00:05→20:56)
[2017-10-20 01:35] LABS: Basophils % 0.2 %; Eosinophils # 0.2 K/mcL (0.0-0.6); Eosinophils % 1.9 %; Hematocrit 35.9 % (37.5-50.1); Hemoglobin 11.9 g/dL (12.9-16.9); Immature Granulocytes % 0.4 % (0-4); Lymphocytes # 1.8 K/mcL (0.6-4.6); Lymphocytes % 22.6 %; Mean Corpuscular HGB Conc 33.1 g/dL (31.6-35.5); Mean Corpuscular Hemoglobin 27.4 pg (28.0-33.3); Mean Corpuscular Volume 82.5 fL (83.0-100.0); Mean Platelet Volume 10.8 fL (9.4-12.4); Monocytes # 0.8 K/mcL (0.0-1.3); Neutrophils # 5.2 K/mcL (1.6-8.9); Platelet Count 175 K/mcL (140-400); Red Blood Count 4.35 M/mcL (4.19-5.50); Red Cell Distribution Width 14.1 % (11.5-14.5); Segmented Neutrophils % 64.9 %
[2017-10-20 01:58] LABS: BUN/Creatinine Ratio 18 (6-26); Blood Urea Nitrogen 20 mg/dL (8-23); Calcium 9.5 mg/dL (8.6-10.3); Carbon Dioxide 24 mEq/L (23-29); Chloride 105 mEq/L (98-107); Glucose 121 mg/dL (70-105); Osmolality,Calculated 292 (280-300); Potassium 3.5 mEq/L (3.5-5.1); Sodium 139 mEq/L (136-145); eGFR For African Americans > 60 (> 60); eGFR For Non-African Americans > 60 (> 60)
[2017-10-20] MEDS: Aspirin 81 MG TAB.CHEW PO SCH (08:15)
[2017-10-20] MEDS: Pregabalin 75 MG CAPSULE PO SCH ×2 (08:15→20:57)
[2017-10-20] MEDS: Multivit/Ca/Min/Fe/FA 1 TAB TABLET PO SCH (08:15)
[2017-10-20] MEDS ORDERED: Isosorbide MONOnitrate (24 HR) 30 MG TAB.ER.24H PO SCH (09:00)
--- NOTE | 2017-10-20 09:08 | Electrocardiograph Report ---
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
[2017-10-20] MEDS ORDERED: Isosorbide MONOnitrate (24 HR) 60 MG TAB.ER.24H PO SCH (11:00)
[2017-10-20] MEDS ORDERED: Isosorbide MONOnitrate (24 HR) 30 MG TAB.ER.24H PO ONE (12:45)
--- NOTE | 2017-10-20 17:15 | Internal Med Progress Note ---
Date of Encounter: 10/20/17 Time of Encounter: 10:15 - Assessment and plan (1) Chest pain Current Visit: Yes Status: Acute Assessment and plan: Troponins negative 3. Lipid profile within normal limits. Chest x-ray negative. EKG showed sinus rhythm with frequent PVCs, nonspecific T-wave abnormality, rate 99, [place] interval 164, QRS 86, QTC 350/QTC 407. Physical exam is unremarkable. Chest pain is not reproducible. He did not have chest pains during exam. Patient had a reduced ejection fraction on stress test 3 days ago. Echocardiogram has been ordered to evaluate. Continue telemetry Echocardiogram pending, consider cardiology consultation based on echocardiogram results. Treat chest pain with nitroglycerin and aspirin Monitor labs and vitals. 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 Chronic. Stable. Qualifiers: Qualified Code(s): I10 - Essential (primary) hypertension - Time Spent With Patient Total time spent is greater than 50% in coordination of care (as documented) at patient's floor/unit and/or counseling patient: less than 15 minutes - Subjective Interval history: Patient was seen and assessed at 10:15 AM. Reports negative stress test he reports that he became hot and sweaty a couple of times the last couple of days and began having numbness and tingling in his left hand. He reports left-sided chest burning without any radiation, no nausea or vomiting. Patient reports that he started Imdur on Monday. He denies current headache, shortness of breath, does report intermittent chest pain. He denies any nausea , vomiting, diarrhea or abdominal pain. Patient was to have echo next week, we will have it done while he is here. I also discussed him with cardiology in [place] and have increased his Imdur, patient is aware and all QUESTIONS were answered. - Constitutional Vitals: Temp Pulse Resp BP Pulse Ox 98.5 F 80 15 97/44 94 10/20/17 15:14 10/20/17 15:14 10/20/17 15:14 10/20/17 15:14 10/20/17 15:14 General appearance: Present: cooperative, A&O X 3, no acute distress, answers questions appropriately - Head Head exam: Present: atraumatic, normal inspection, normocephalic - Eye Eye exam: Present: normal appearance, conjuntiva pink, sclera anicteric - Neck Neck exam general surgery: Present: supple, trachea midline. Absent: lymphadenopathy, tenderness - Respiratory Respiratory exam: Present: CTAB. Absent: accessory muscle use, rales, rhonchi, wheezes - Cardiovascular Cardiovascular exam: Present: RRR, +S1, +S2. Absent: diastolic murmur, gallop, rubs, systolic murmur - GI/Abdominal GI/Abdominal exam: Present: normal bowel sounds, soft. Absent: distended, hepatomegaly, tenderness - Extremities Exam Extremities exam: Present: normal capillary refill, normal inspection, warm, radial pulses palpable and symmetrical. Absent: calf tenderness, cyanotic, pedal edema, tenderness - Neurological Exam Neurological exam: Present: alert, oriented X3, no focal deficits. Absent: facial droop, speech deficit - Skin Skin exam: Present: dry, intact, normal color, warm. Absent: rash Internal Medicine: Result - Labs CBC & Chem 7: 10/20/17 01:08 10/20/17 01:08 Labs: Short CBC 10/20/17 Range/Units 01:08 WBC 8.1 (4.3-11.1) K/mcL Hgb 11.9 L (12.9-16.9) g/dL Hct 35.9 L (37.5-50.1) % Plt Count 175 (140-400) K/mcL Neutrophils # 5.2 (1.6-8.9) K/mcL BMP 10/20/17 01:08 Sodium 139 Potassium 3.5 Chloride 105 Carbon Dioxide 24 BUN 20 Creatinine 1.14 Glucose 121 H Calcium 9.5 Cardiac Enzymes 10/19/17 10/20/17 10/20/17 Range/Units 20:10 01:08 07:20 Troponin I < 0.03 < 0.03 < 0.03 (< 0.04) ng/mL - ABG Interpretation ABG results: PT/INR, D-dimer PT 11.3 Seconds (9.4-12.1) 10/19/17 11:46 Consult Discharge Plan - Plan Referrals: Angelika Montalvo, HEEL SPLITTER [Primary Care Provider] -
[2017-10-20] MEDS ORDERED: Acetaminophen 325 MG TABLET PO PRN (17:23)
[2017-10-21] MEDS: Insulin LISPRO 300 UNITS/3 ML VIAL SQ SCH ×2 (07:40→12:12)
[2017-10-21] MEDS: Pregabalin 75 MG CAPSULE PO SCH (08:51)
[2017-10-21] MEDS: Aspirin 81 MG TAB.CHEW PO SCH (08:51)
[2017-10-21] MEDS: Multivit/Ca/Min/Fe/FA 1 TAB TABLET PO SCH (08:52)
[2017-10-21] MEDS ORDERED: Isosorbide MONOnitrate (24 HR) 60 MG TAB.ER.24H PO SCH (09:00)
[2017-10-21 15:57] VITALS: BP 100/58
--- NOTE | 2017-10-21 16:10 | Discharge Summary ---
- NOTES TO OUTPATIENT PROVIDER Notes to Outpatient Provider: Patient was admitted for evaluation of chest pain. He reports sudden onset burning and substernal area without any alleviating or positive factors, denies radiation of the pain. He reports that he was having "hot sweating." The pain is not reproducible with palpation and pain resolved on its own. Patient echocardiogram with an LVEF of 35-40% with global LV systolic dysfunction, mild diastolic dysfunction, no significant valvular dysfunction this is basically unchanged from prior echocardiogram in 2015. Patient had an outpatient stress test that was a gated EF of 31%, also noted there was a small amount of mild reversibility involving the mid inferolateral and apical lateral segments consistent with very mild. Infarct ischemia. I discussed the findings with cardiology PRINTER HELPER who recommended echocardiogram. Since TTE is basically unchanged, there is no further intervention required at this time. He has an appointment to follow up with cardiology that I have encouraged him to keep. His troponins were negative. His labs were stable and within normal limits, vital signs are stable and within normal limits. Recommend close follow-up with primary care and cardiology. Orders not resulted at time of discharge: Pending orders 10/21/17 10:22 EKG [ECG 12 lead ECG] [ECG] Stat Date of Encounter: 10/21/17 Time of Encounter: 09:30 - Discharge Diagnosis (1) Chest pain Priority: Primary Status: Acute Assessment and Plan: Troponins negative 3. Lipid profile within normal limits. Chest x-ray negative. EKG showed sinus rhythm with frequent PVCs, nonspecific T-wave abnormality, rate 99, [place] interval 164, QRS 86, QTC 350/QTC 407. Chest pain is not reproducible. He did not have chest pains during exam. Patient had a reduced ejection fraction on stress test 3 days ago. Echocardiogram with LVEF of 35-40%, borderline dilated LV, global LV systolic dysfunction, mild diastolic dysfunction, no significant valvular dysfunction. This is basically unchanged from prior echocardiogram in 2015. Imdur was increased from 30 mg to 60 mg daily. Patient denies chest pain. We will keep patient overnight to monitor for any changes, discuss any incidental plan with cardiology, discharge patient in the morning. Patient has follow up with cardiology, I recommend he keep the appointment, follow-up with primary care. Return to the emergency department if needed if chest pain persists. Qualifiers: Chest pain type: unspecified Qualified Code(s): R07.9 - Chest pain, unspecified (2) Diabetes mellitus Priority: Secondary Status: Chronic Assessment and Plan: Continue Accu-Cheks per home regimen. Continue home medications. 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 Chronic. Stable. Qualifiers: Qualified Code(s): I10 - Essential (primary) hypertension Hospital course: Mr. Clark is a 71 year old male past medical history of coronary artery disease, diabetes, hypertension, and STEMI, V. tach, systolic dysfunction, pancreatic cyst. A shunt has been admitted for chest pain. Recent stress test prior to admission on the outpatient basis. Was negative for ischemia or infarct with gated EF of 31%. Patient had echocardiogram here is basically unchanged from prior. Imdur has been increased from 30 mg to 60 mg daily. Patient denies chest pain. He is stable and appropriate for discharge. Discharge discussed with: patient, nurse - Time Spent with Patient Total time spent providing and/or coordinating discharge services: Less than 30 minutes - Discharge Medications Prescriptions: Isosorbide MONOnitrate (24 HR) [Imdur] 60 mg PO DAILY #30 tab.er.24h Home Medications: Multivitamin/Iron/Folic Acid [Centrum Complete Multivit Tab] 1 tab PO DAILY 04/14 [History] Clopidogrel [Plavix] 75 mg PO DAILY 02/14/17 [History] Carvedilol [Coreg] 25 mg PO BID 04/11/17 [History] metFORMIN [Glucophage] 1,000 mg PO BIDWM 04/11/17 [History] Aspirin 81 mg PO DAILY 06/26/17 [History] Nitroglycerin 0.4 mg PO Q5MIN PRN 10/19/17 [History] Omeprazole [PriLOSEC] 40 mg PO DAILY 10/19/17 [History] Pregabalin [Lyrica] 75 mg PO BID 10/19/17 [History] Promethazine [Phenergan] 25 mg PO DAILY PRN 10/19/17 [History] Quinapril/Hydrochlorothiazide [Quinapril-Hctz 10-12.5 mg Tab] 1 tab PO DAILY [History] Rosuvastatin Calcium 40 mg PO DAILY 10/19/17 [History] Isosorbide MONOnitrate (24 HR) [Imdur] 60 mg PO DAILY #30 tab.er.24h 10/21/17 [ Rx] Allergies/Adverse Reactions: 3 Allergy/AdvReac Type Severity Reaction Status Date / Time No Known Allergies Allergy Verified 10/19/17 14:26 Date of admission: 10/19/17 15:41 Primary care physician: Angelika Montalvo CNP Discharging clinician: Cassie Xiong Anticipated date of discharge: 10/21/17 - Constitutional Vitals: Temp Pulse Resp BP Pulse Ox 98.3 F 87 17 100/58 96 10/21/17 15:54 10/21/17 15:54 10/21/17 15:54 10/21/17 15:54 10/21/17 15:54 General appearance: Present: cooperative, A&O X 3, pleasant, no acute distress, answers questions appropriately - Head Head exam: Present: atraumatic, normal inspection, normocephalic - Eye Eye exam: Present: normal appearance, conjuntiva pink, sclera anicteric - Neck Neck exam general surgery: Present: supple, trachea midline. Absent: lymphadenopathy, tenderness - Respiratory Respiratory exam: Present: CTAB. Absent: accessory muscle use, chest wall tenderness, rales, rhonchi, wheezes - Cardiovascular Cardiovascular exam: Present: RRR, +S1, +S2. Absent: diastolic murmur, gallop, rubs, systolic murmur - GI/Abdominal GI/Abdominal exam: Present: normal bowel sounds, soft. Absent: distended, hepatomegaly, tenderness - Extremities Exam Extremities exam: Present: normal capillary refill, normal inspection, warm, radial pulses palpable and symmetrical. Absent: calf tenderness, cyanotic, pedal edema, tenderness - Neurological Exam Neurological exam: Present: alert, oriented X3, no focal deficits. Absent: facial droop, speech deficit - Skin Skin exam: Present: dry, intact, normal color, warm. Absent: rash - Patient Status Disposition: Home, Self-Care Condition: Good - Discharge Instructions Follow Up With: Angelika Montalvo CNP [Primary Care Provider] - Additional Instructions: Follow up with cardiology and your PCP in the next 5-7 days. Return to the emergency department as needed for any other problems or concerns , or if symptoms return or worsen. Take your medications as directed. Your new prescription for Imdur has been called into your pharmacy. Return to your normal activities and diet as tolerated. Resume your other home medications, stop the old dose of Imdur. - Diet and Activity Activity: increase activity as tolerated Diet: advance to your usual diet
--- NOTE | 2017-10-24 16:39 | Electrocardiograph Report ---
[place] [id number] Test Date: 2017-10-21 Pat Name: Navid Clark Department: 113 Room: 3B55 Gender: Content Strategy Lead: LENA : 1945 Requested By: Cassie Xiong Order Number: [id number] Reading MD: Sharon Mendoza Measurements Intervals [place] Rate: 92 P: 26 SC: 164 QRS: -37 QRSD: 89 T: 85 QT: 365 QTc: 415 Interpretive Statements SINUS RHYTHM WITH OCCASIONAL VENTRICULAR PREMATURE COMPLEXES MARKED LEFT AXIS DEVIATION POSSIBLE ANTERIOR MYOCARDIAL INFARCTION, PROBABLY OLD PVC Electronically Signed On 10-24-2017 16:38:01 EDT by Sharon Mendoza
== END 2017-10-21 17:16 | disposition home or self-care (01) ==
LOC: 3BNU 11:07 → EMEROO 11:07 → 3BNU 16:20
PROVIDERS: ADMIT Hospitalist; ATTEND Hospitalist

== ENCOUNTER 2018-03-10 16:17 | Inpatient (IN) ==
[2018-03-10] MEDS ORDERED: *HR* Amiodarone 150 MG/3 ML VIAL IVPB ONE (16:29)
[2018-03-10] MEDS ORDERED: Aspirin 81 MG TAB.CHEW PO ONE (16:32)
[2018-03-10] MEDS ORDERED: 0.9 % Sodium Chloride 1,000 ML ONE (16:33)
[2018-03-10 16:40] LABS: Basophils % 0.2 %; Eosinophils # 0.3 K/mcL (0.0-0.6); Eosinophils % 2.7 %; Hematocrit 38.4 % (37.5-50.1); Hemoglobin 12.4 g/dL (12.9-16.9); Immature Granulocytes % 0.3 % (0-4); Lymphocytes # 1.9 K/mcL (0.6-4.6); Lymphocytes % 19.4 %; Mean Corpuscular HGB Conc 32.3 g/dL (31.6-35.5); Mean Corpuscular Hemoglobin 26.6 pg (28.0-33.3); Mean Corpuscular Volume 82.2 fL (83.0-100.0); Mean Platelet Volume 10.6 fL (9.4-12.4); Monocytes # 0.9 K/mcL (0.0-1.3); Monocytes % 8.7 %; Neutrophils # 6.8 K/mcL (1.6-8.9); Platelet Count 228 K/mcL (140-400); Red Blood Count 4.67 M/mcL (4.19-5.50); Red Cell Distribution Width 14.8 % (11.5-14.5); Segmented Neutrophils % 68.7 %
[2018-03-10] MEDS ORDERED: Amiodarone Premix 360 MG/200 ML BAG IVC ONE (16:46)
[2018-03-10] MEDS: Amiodarone Premix 360 MG/200 ML BAG IVC ONE ×2 (16:49→22:43)
[2018-03-10 16:51] LABS: Prothrombin Time 11.5 Seconds (9.4-12.1)
[2018-03-10 16:54] LABS: Activated Partial Thrombo Time 31.7 Seconds (26.0-36.0)
--- NOTE | 2018-03-10 16:56 | Emergency Department Note ---
Disposition Clinical Impression: Ventricular tachycardia, Hypomagnesemia, PEDRO (acute kidney injury) Chest pain Qualifiers: Chest pain type: unspecified Qualified Code(s): R07.9 - Chest pain, unspecified Disposition: Admitted As Inpatient Time of Disposition: 17:25 General Adult HPI - General Chief complaint: ED Chest Pain Stated complaint: chest pain Time Seen by Provider: 03/10/18 16:32 Source: patient Mode of arrival: ambulatory Limitations: no limitations Nursing Notes Reviewed: Yes Vital Signs Reviewed: Yes - History of Present Illness HPI Narrative: 72-year-old male with a history of CAD status post CABG on Plavix and aspirin, hypertension diabetes presents for evaluation of chest pain. Notes to occur for 4 minutes prior to arrival. Nonexertional located in the left chest. Denies any fevers or cough. Denies any palpitations. No nausea or vomiting. No dyspnea. No abdominal pain. Pain Scale: 6 - Related Data Home Medications Medication Instructions Recorded Confirmed Multivitamin/Iron/Folic Acid 1 tab PO DAILY 12/10/14 01/30/18 [Centrum Complete Multivit Tab] Clopidogrel [Plavix] 75 mg PO DAILY 02/14/17 01/30/18 Carvedilol [Coreg] 25 mg PO BID 04/11/17 01/30/18 metFORMIN [Glucophage] 1,000 mg PO BIDWM 04/11/17 01/30/18 Aspirin 81 mg PO DAILY 06/26/17 01/30/18 Nitroglycerin 0.4 mg PO Q5MIN PRN 10/19/17 01/30/18 Omeprazole [PriLOSEC] 40 mg PO DAILY 10/19/17 01/30/18 Promethazine [Phenergan] 25 mg PO DAILY PRN 10/19/17 01/30/18 Quinapril/Hydrochlorothiazide 1 tab PO DAILY 10/19/17 01/30/18 [Quinapril-Hctz 10-12.5 mg Tab] Rosuvastatin Calcium 40 mg PO DAILY 10/19/17 01/30/18 Gabapentin [Neurontin] 600 mg PO TID 01/30/18 01/30/18 Isosorbide MONOnitrate (24 HR) 30 mg PO DAILY 01/30/18 01/30/18 [Imdur] Tramadol HCl [Ultram] 100 mg PO TID PRN 01/30/18 01/30/18 Allergies Allergy/AdvReac Type Severity Reaction Status Date / Time No Known Allergies Allergy Verified 10/19/17 14:26 All systems ED: reviewed and negative except as stated. Constitutional: Denies: fever Cardiovascular: Reports: chest pain. Denies: palpitations Respiratory: Denies: cough, dyspnea Gastrointestinal: Denies: abdominal pain, nausea, vomiting Past Medical History - Past Medical History Source: patient Medical history: Reports: coronary artery disease, diabetes, GERD, hype rlipidemia, hypertension, other Surgical history: Reports: angioplasty/stent, cholecystectomy, coronary bypass (CABG), other Psychiatric history: Reports: no psych history - Social History Smoking Status: Never smoker Smokeless Tobacco Status: No Alcohol use: Reports: none Drug use: Reports: none Physical Exam - General Limitations: no limitations General appearance: alert, in no apparent distress - Head Head exam: atraumatic, normocephalic, normal inspection - Eye Eye exam: Present: normal appearance, EOMI - ENT ENT exam: normal exam, mucous membranes moist - Neck Neck exam: Present: normal inspection - Chest Chest inspection: Present: normal inspection, symmetric chest wall rise - Respiratory Respiratory exam: Present: normal lung sounds bilaterally. Absent: respiratory distress - Cardiovascular Cardiovascular exam: Present: regular rate, tachycardia. Absent: systolic murmur - Abdominal Exam Abdominal exam: Present: soft, Non-Tender - Extremities Exam Extremities exam: Present: normal inspection. Absent: pedal edema - Expanded Lower Extremity Exam Neurovascular/Tendon exam: Present: normal capillary refill - Back Exam Back exam: Present: normal inspection - Neurological Exam Neurological exam: Present: alert, CN II-XII intact - Skin Skin exam: Present: warm, dry, intact, normal color Course Course Narrative: Patient presented with wide complex tachycardia. Patient's prior EKG obtained approximately 5 months ago shows normal sinus rhythm with to multifocal PVCs. Patient's symptom onset occurred 45 minutes prior to arrival. Correlated well with the patient's chest pain. Patient's vitals stable with preserved pressure. Immediately discussed the case with cardiology who agreed with the amiodarone. - Reevaluation(s) Reevaluation #1: Patient's heart rate stabilized after the amiodarone bolus. BP preserved. Patient's chest pain resolved. Time: 16:59 Reevaluation #2: Patient seen and examined. Patient's resting currently with stable vitals. Patient's plan of care discussed at bedside. Time: 17:18 - Consultations Consultation #1: Discussed case with Dr. Mendoza who reviewed the patient's chart does have a history of systolic dysfunction with coronary artery disease. Time: 16:58 Vital Signs Temperature 98.1 F 03/10/18 16:20 Pulse Rate 166 03/10/18 16:20 Respiratory Rate 16 03/10/18 16:20 Blood Pressure 124/78 03/10/18 16:20 O2 Sat by Pulse Oximetry 96 03/10/18 16:20 Temperature 98.1 F 03/10/18 16:25 Pulse Rate 96 03/10/18 17:28 Respiratory Rate 18 03/10/18 17:28 Blood Pressure 112/67 03/10/18 17:28 O2 Sat by Pulse Oximetry 98 03/10/18 17:28 Oxygen Delivery Oxygen Delivery Room Air Medical Decision Making - MDM Narrative Medical decision making narrative: Patient presented for concerns of chest pain in the setting of monomorphic V. tach. Patient did have preserved left pressure. Patient was mentating appro priately. Patient was treated with amiodarone bolus and heart rate slowed down. Patient did have sinus rhythm with to unifocal PVCs. Patient's chest pain resolved. Patient was continued on the amiodarone drip. Patient's lites lites show hypomagnesemic which was repleted in the ED. Conversation was discussed with the on-call ton cylinder inspector who will see the patient consult. Patient will likely need an AICD in the setting of systolic heart dysfunction. No concern for PE. Patient is resting comfortably with multiple evaluations in the ED. lisa Wade also recommended that if the patient went back into ventricular tachycardia to rebolus with amnio. - Lab Data Lab results reviewed: Yes I reviewed the patient's lab results. Result diagrams: 03/10/18 16:26 03/10/18 16:26 Lab Results 03/10/18 03/10/18 03/10/18 Range/Units 16:26 16:26 16:26 WBC 9.9 (4.3-11.1) K/mcL RBC 4.67 (4.19-5.50) M/mcL Hgb 12.4 L (12.9-16.9) g/dL Hct 38.4 (37.5-50.1) % MCV 82.2 L (83.0-100.0) fL MCH 26.6 L (28.0-33.3) pg MCHC 32.3 (31.6-35.5) g/dL RDW 14.8 H (11.5-14.5) % Plt Count 228 (140-400) K/mcL MPV 10.6 (9.4-12.4) fL Immature Gran % 0.3 (0-4) % Seg Neutrophils % 68.7 % Lymphocytes % 19.4 % Monocytes % 8.7 % Eosinophils % 2.7 % Basophils % 0.2 % Neutrophils # 6.8 (1.6-8.9) K/mcL Lymphocytes # 1.9 (0.6-4.6) K/mcL Monocytes # 0.9 (0.0-1.3) K/mcL Eosinophils # 0.3 (0.0-0.6) K/mcL Basophils # 0.0 (0.0-0.2) K/mcL PT 11.5 (9.4-12.1) Seconds INR 1.0 APTT 31.7 (26.0-36.0) Seconds Sodium (136-145) mEq/L Potassium (3.5-5.1) mEq/L Chloride (98-107) mEq/L Carbon Dioxide (23-29) mEq/L BUN (8-23) mg/dL Creatinine (0.70-1.30) mg/dL Est GFR ( Amer) (> 60) Est GFR (Non-Af Amer) (> 60) BUN/Creatinine Ratio (6-26) Glucose (70-105) mg/dL Calculated Osmolality (280-300) Calcium (8.6-10.3) mg/dL Phosphorus (2.7-4.5) mg/dL Magnesium (1.6-2.6) mg/dL Troponin I (< 0.04) ng/mL B-Natriuretic Peptide 851 H (Less than 100) pg/mL 03/10/18 Range/Units 16:26 WBC (4.3-11.1) K/mcL RBC (4.19-5.50) M/mcL Hgb (12.9-16.9) g/dL Hct (37.5-50.1) % MCV (83.0-100.0) fL MCH (28.0-33.3) pg MCHC (31.6-35.5) g/dL RDW (11.5-14.5) % Plt Count (140-400) K/mcL MPV (9.4-12.4) fL Immature Gran % (0-4) % Seg Neutrophils % % Lymphocytes % % Monocytes % % Eosinophils % % Basophils % % Neutrophils # (1.6-8.9) K/mcL Lymphocytes # (0.6-4.6) K/mcL Monocytes # (0.0-1.3) K/mcL Eosinophils # (0.0-0.6) K/mcL Basophils # (0.0-0.2) K/mcL PT (9.4-12.1) Seconds INR APTT (26.0-36.0) Seconds Sodium 140 (136-145) mEq/L Potassium 4.0 (3.5-5.1) mEq/L Chloride 104 (98-107) mEq/L Carbon Dioxide 26 (23-29) mEq/L BUN 20 (8-23) mg/dL Creatinine 1.44 H (0.70-1.30) mg/dL Est GFR ( Amer) 59 L (> 60) Est GFR (Non-Af Amer) 48 L (> 60) BUN/Creatinine Ratio 14 (6-26) Glucose 178 H (70-105) mg/dL Calculated Osmolality 297 (280-300) Calcium 9.6 (8.6-10.3) mg/dL Phosphorus 3.8 (2.7-4.5) mg/dL Magnesium 1.4 L (1.6-2.6) mg/dL Troponin I < 0.03 (< 0.04) ng/mL B-Natriuretic Peptide (Less than 100) pg/mL - Radiology Data Radiology results reviewed: Yes I reviewed the patient's radiology results. Chest X-Ray 03/10/18 16:32 IMPRESSION: Bibasilar atelectasis. D/ / Yusef Rosenbaum MD / Yusef Rosenbaum MD Interpreting Provider: Yusef Rosenbaum MD - EKG Data EKG #1 EKG attestation: Yes I reviewed and interpreted this EKG. EKG results narrative: Wide complex tachycardia at a rate of 178. When compared to previous EKG there are: changes noted EKG #2 EKG attestation: Yes I reviewed and interpreted this EKG. EKG results narrative: Wide complex tachycardia at a rate of 178. EKG shows normal: sinus rhythm Rate: normal Rhythm: NSR, PVC's (2) [place]/QRS: IVCD When compared to previous EKG there are: changes noted Interpretation: nonspecific ST-T wave changes S.B.A.R. - S.B.A.RCammie Situation: Demographics Background: Presenting Complaint Assessment: Vital Signs, Course and respsone to treatment Recommendation: Barrier(s) to disposition, Recommendation based on pending studies, treatments, or consults S.B.A.RCammie Report Given to: Hospitalist Destin Repor Time: 17:42 Attestation Statement - Attestation Attestation: I, Edinson Maravilla, examined this patient and my medical decision-making was reviewed with the HEARING CONSULTANT/PA/Advanced Practice Nurse/Resident Physician. I agree with the documented findings, disposition and treatment plan as described except to the extent set forth below. 72-year-old male presents to the emergency Department with concerns of burning in his chest and a fast heart rate. Patient states he woke this morning and felt increasingly weak and fatigued and short of breath. Patient describes having a burning in his chest but denies having a "chest pain". Patient has not syncopized. He has a history of heart disease where he has had multiple vessel bypass. On initial evaluation his heart rate is 170. EKG shows a wide complex monomorphic tachycardia. BP was greater than 100 and patient was answering questions appropriately. This was likely stable ventricular tachycardia and we treated with amiodarone 150 mg over 10 minutes with significant improvement of the patient's symptoms. Patient converted to a sinus rhythm with the amiodarone bolus. We contacted the ton cylinder inspector, Dr. Mendoza, who agreed with the plan for amiodarone and recommended admission to [facility]. She recommended that he was not a candidate for cardiac catheterization secondary to calcification of his bypass and previous investigations of his cardiac disease. She will evaluate while he is in the hospital. Patient heart rate has not improved significantly and is in a sinus rhythm. He no longer has chest burning. He will be admitted to [facility]
[2018-03-10 17:05] LABS: BUN/Creatinine Ratio 14 (6-26); Blood Urea Nitrogen 20 mg/dL (8-23); Calcium 9.6 mg/dL (8.6-10.3); Carbon Dioxide 26 mEq/L (23-29); Chloride 104 mEq/L (98-107); Glucose 178 mg/dL (70-105); Magnesium 1.4 mg/dL (1.6-2.6); Osmolality,Calculated 297 (280-300); Phosphorous 3.8 mg/dL (2.7-4.5); Sodium 140 mEq/L (136-145); Troponin I < 0.03 ng/mL (< 0.04); eGFR For Non-African Americans 48 (> 60)
--- NOTE | 2018-03-10 18:31 | Event Note ---
Date of Encounter: 03/10/18 Time of Encounter: 17:30 - Cardiology Event Note Received page from ER regarding this patient - spoke with ER Resident Brenda Maxwell and Dr. Maravilla. Was told patient presented in a wide complex tachycardia, rate around 170. Reportedly having some chest pain but hemodynamically stable. Labs were not available at that time and medical history was not defined. They said they were going to administer amiodarone presuming VT until proven otherwise. I asked them to fax ECGs for my review. I received 3 ECGs as follows: 03/10/2018 presenting ECG demonstrates regular wide complex tachycardia, HR 178 bpm (LBBB morphology, absence of concordance in chest leads, no apparent AV di ssociation) 03/10/2018@ 16:55 demonstrating NSR, LBBB morphology, PVCs, no acute ischemic ST findings Reviewed patient's medical history in [facility] ([facility] outpatient system undergoing IT update and not available). Patient has history of CABG in 2002. He recently underwent left heart catheterization 01/30/2018 collectively which demonstrated one out of 4 patent bypass grafts ([id number] patent), LVEF 30%, heavily calcified vessels. Intervention was not performed. Maximize medical therapy was recommended. An echo performed in September 2017 demonstrated LV EF 35-40%. Discussed case and ECGs with Dr. Maravilla. After amiodarone bolus, the patient converted to normal sinus rhythm. Noted to have a left bundle branch block morphology after converting to NSR which is similar in appearance to the morphology while in the wide complex tachycardia. The patient's chest pain had resolved and he remained hemodynamically stable. We elected to continue the patient on amiodarone drip until the patient can be worked up in detail in the morning. Labs returned demonstrating low magnesium, negative troponin and possibly mild acute renal dysfunction. Personally spoke with admitting Hospitalist to discuss the case. Patient will be sent to step down unit for close observation overnight. Magnesium to be repleted.
[2018-03-10] MEDS ORDERED: Naloxone 0.4 MG/ML INJ IVP PRN (19:40)
--- NOTE | 2018-03-10 19:52 | Internal Med History&Physical ---
Date of Encounter: 03/10/18 Time of Encounter: 18:30 Internal Medicine - H&P: HPI Chief complaint: Chest pain Admitted From: Emergency Dept Plans for Post Hospital Care: Home History of present illness: Mr. Clark is a 72 year old male with history of severe CAD s/p CABG and recent PCI which showed diffuse disease not amenable to stenting, who presented to the ED this afternoon with complaint of chest pain which began suddenly around 1500. He was outside working, and came inside to eat when the symptoms began. He took SL nitro x3 and did not have resolution of chest pain so his brought him to the ED. In the ED he was found to have a wide complex tachycardia, with rate in the 170s. Cardiology was urgently consulted and patient was given amiodarone bolus with conversion to NSR. Amiodarone gtt was initiated. Chest pain resolved with resolution of the arrhythmia. The patient states that he has had occasional episodes of chest pain since his recent discharge from [facility] on 01/30/18, and one SL nitro resolves the pain each time. He denies ever having similar arrhythmia in the past. He was found to have low magnesium of 1.4 which was replaced in the ED. He reports compliance with his home medications. Past Med Surg Social Fam HX - Past Medical History Medical history: coronary artery disease, diabetes, GERD, hyperlipidemia, hypertension, other Additional medical history: colon polyps, gastritis Psychiatric history: no psych history - Past Surgical History Surgical History: angioplasty/stent, cholecystectomy, coronary bypass (CABG), other Additional surgical history: amputation right hand, colonoscopy, egd - Social History Smoking Status: Never smoker Smokeless Tobacco Status: No Alcohol use: none Drug use: none - Family History Father Living Status: Hx Family Cardiac Disorders: Yes (CAD) Hx Family Endocrine Disorder: Yes (Diabetes Mellitus) Mother Living Status: Hx Family Cardiac Disorders: Yes (CAD) Sister Living Status: Still Living Hx Family Cancer: Yes (Breast cancer) Hx Family Neuromuscular Disorders: Yes (Scoliosis) Internal Medicine - H&P: Meds Multivitamin/Iron/Folic Acid [Centrum Complete Multivit Tab] 1 tab PO DAILY 12/10/14 [History] Clopidogrel [Plavix] 75 mg PO DAILY 02/14/17 [History] Carvedilol [Coreg] 12.5 mg PO BID 12/12/17 [History] metFORMIN [Glucophage] 1,000 mg PO BIDWM 04/11/17 [History] Aspirin 81 mg PO DAILY 06/26/17 [History] Nitroglycerin 0.4 mg PO Q5MIN PRN 10/19/17 [History] Omeprazole [PriLOSEC] 40 mg PO DAILY 10/19/17 [History] Promethazine [Phenergan] 25 mg PO DAILY PRN 10/19/17 [History] Quinapril/Hydrochlorothiazide [Quinapril-Hctz 10-12.5 mg Tab] 1 tab PO DAILY 10/19/17 [History] Rosuvastatin Calcium 40 mg PO DAILY 10/19/17 [History] Isosorbide MONOnitrate (24 HR) [Imdur] 30 mg PO DAILY 01/30/18 [History] Tramadol HCl [Ultram] 50 mg PO TID PRN 01/30/18 [History] Biotin 1 mg PO DAILY 03/10/18 [History] Gabapentin [Neurontin] 800 mg PO TID 03/10/18 [History] Loperamide HCl [Imodium A-D] 2 mg PO DAILY 03/10/18 [History] Allergy/AdvReac Type Severity Reaction Status Date / Time No Known Allergies Allergy Verified 10/19/17 14:26 All Systems PM: A 10-system review of systems was performed and is negative for pertinent findings except as documented above in the HPI. - Constitutional Constitutional: no falls, no weakness - EENT Eyes: no blurry vision - Cardiovascular Cardiovascular ROS IM: chest pain, no dyspnea - Respiratory Respiratory: no cough, no dyspnea - Gastrointestinal Gastrointestinal: no abdominal pain, no nausea, no vomiting - Musculoskeletal Musculoskeletal ROS IM: no muscle cramps - Neurological Neurological ROS: no abnormal movements, no abnormal speech, no memory loss - Psychiatric Psychiatric: no behavioral changes - Constitutional Vitals: Temp Pulse Resp BP Pulse Ox 98.1 F 72 16 106/62 98 03/10/18 16:25 03/10/18 19:22 03/10/18 19:22 03/10/18 19:22 03/10/18 19:22 General appearance: Present: A&O X 3, no acute distress Exam: Patient in no acute distress, resting comfortably in bed - Head Head exam: Present: atraumatic - Eye Eye exam: Present: EOMI, sclera anicteric - ENT ENT exam: Present: mucous membranes moist - Neck Neck exam general surgery: Present: supple - Respiratory Respiratory exam: Present: CTAB - Cardiovascular Cardiovascular exam: Present: RRR. Absent: diastolic murmur, gallop, rubs, systolic murmur - GI/Abdominal GI/Abdominal exam: Present: normal bowel sounds, soft. Absent: distended, tenderness - Extremities Exam Extremities exam: Absent: pedal edema - Neurological Exam Neurological exam: Present: no focal deficits - Psychiatric Psychiatric exam: Present: normal affect, normal mood - Skin Skin exam: Absent: rash Internal Med - H&P Results - Labs CBC & Chem 7: 03/10/18 16:26 03/10/18 16:26 Labs: Short CBC 03/10/18 Range/Units 16:26 WBC 9.9 (4.3-11.1) K/mcL Hgb 12.4 L (12.9-16.9) g/dL Hct 38.4 (37.5-50.1) % Plt Count 228 (140-400) K/mcL Neutrophils # 6.8 (1.6-8.9) K/mcL BMP 03/10/18 16:26 Sodium 140 Potassium 4.0 Chloride 104 Carbon Dioxide 26 BUN 20 Creatinine 1.44 H Glucose 178 H Calcium 9.6 Cardiac Enzymes 03/10/18 Range/Units 16:26 Troponin I < 0.03 (< 0.04) ng/mL - Impressions ITS Impressions Chest X-Ray 03/10/18 16:32 IMPRESSION: Bibasilar atelectasis. D/ / Yusef Rosenbaum MD / Yusef Rosenbaum MD Interpreting Provider: Yusef Rosenbaum MD - Assessment and plan (1) Ventricular tachycardia Current Visit: No Status: Resolved Assessment and plan: Wide complex tachyarrhythmia most concerning for VT given his history of CHF with EF <35%, although SVT with aberrancy also possibility. Patient responded well to amiodarone bolus and gtt. - Cardiology consulted, appreciate assistance - If patient returns to wide complex tachyarrhythmia cards recommends bolusing amiodarone again - Continue amiodarone gtt - Mag replaced in ED, will continue to monitor and replace electrolytes PRN - Monitor on telemetry in step down unit (2) Chest pain Current Visit: Yes Status: Acute Assessment and plan: Secondary to tachyarrhythmia in patient with known severe CAD. Chest pain resolved with rate control. 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
[2018-03-10] MEDS ORDERED: *HR* Dextrose 50 % in Water (Syg) 50 ML SYRINGE IVP PRN (19:58)
[2018-03-10] MEDS ORDERED: Dextrose Gel 15 GM/37.5 ML TUBE PO PRN ×2 (19:58)
[2018-03-10] MEDS ORDERED: D5% in Water 1,000 ML IVC PRN (19:58)
[2018-03-10] MEDS: Insulin LISPRO 300 UNITS/3 ML VIAL SQ SCH (21:34)
[2018-03-10] MEDS: Gabapentin 400 MG CAPSULE PO SCH (21:35)
[2018-03-10] MEDS ORDERED: *HR* Heparin 5,000 UNIT/ML VIAL IVP PRN ×2 (23:22)
[2018-03-10] MEDS ORDERED: *HR* Heparin 5,000 UNIT/ML VIAL IVP ONE (23:22)
[2018-03-10] MEDS: Heparin 25,000 UNIT/500 ML D5W 25,000 UNIT/500 ML BAG IVC SCH (23:44)
[2018-03-11] MEDS ORDERED: Nitroglycerin 0.4 MG TAB.SUBL SL PRN (00:09)
[2018-03-11 00:29] LABS: Hematocrit 31.3 % (37.5-50.1); Mean Corpuscular HGB Conc 32.6 g/dL (31.6-35.5); Mean Corpuscular Hemoglobin 26.6 pg (28.0-33.3); Mean Corpuscular Volume 81.5 fL (83.0-100.0); Mean Platelet Volume 11.1 fL (9.4-12.4); Platelet Count 175 K/mcL (140-400); Red Blood Count 3.84 M/mcL (4.19-5.50); Red Cell Distribution Width 14.7 % (11.5-14.5)
[2018-03-11 00:33] LABS: Hemoglobin 10.2 g/dL (12.9-16.9)
[2018-03-11 00:52] LABS: Heparin anti-factor XA UFH 0.93 IU/mL (0.30-0.70); INR 1.1; Prothrombin Time 12.5 Seconds (9.4-12.1)
[2018-03-11 04:39] LABS: Basophils % 0.4 %; Eosinophils # 0.3 K/mcL (0.0-0.6); Eosinophils % 3.5 %; Hematocrit 32.5 % (37.5-50.1); Hemoglobin 10.4 g/dL (12.9-16.9); Immature Granulocytes % 0.3 % (0-4); Lymphocytes # 1.6 K/mcL (0.6-4.6); Lymphocytes % 20.8 %; Mean Corpuscular Hemoglobin 26.2 pg (28.0-33.3); Mean Corpuscular Volume 81.9 fL (83.0-100.0); Mean Platelet Volume 11.3 fL (9.4-12.4); Monocytes # 0.7 K/mcL (0.0-1.3); Monocytes % 9.9 %; Neutrophils # 4.9 K/mcL (1.6-8.9); Platelet Count 192 K/mcL (140-400); Red Blood Count 3.97 M/mcL (4.19-5.50); Red Cell Distribution Width 14.8 % (11.5-14.5); Segmented Neutrophils % 65.1 %
[2018-03-11 04:48] LABS: Heparin anti-factor XA UFH 0.44 IU/mL (0.30-0.70)
[2018-03-11 04:50] LABS: Activated Partial Thrombo Time 76.3 Seconds (26.0-36.0)
[2018-03-11 04:58] LABS: BUN/Creatinine Ratio 14 (6-26); Blood Urea Nitrogen 18 mg/dL (8-23); Calcium 8.6 mg/dL (8.6-10.3); Carbon Dioxide 29 mEq/L (23-29); Chloride 107 mEq/L (98-107); Glucose 128 mg/dL (70-105); Osmolality,Calculated 300 (280-300); Potassium 3.6 mEq/L (3.5-5.1); Sodium 143 mEq/L (136-145); eGFR For Non-African Americans 55 (> 60)
[2018-03-11] MEDS ORDERED: *HR* Enoxaparin 40 MG/0.4 ML SYRINGE SQ SCH (06:00)
[2018-03-11] MEDS: Insulin LISPRO 300 UNITS/3 ML VIAL SQ SCH ×4 (09:40→20:58)
[2018-03-11 11:31] LABS: Troponin I 3.04 ng/mL (< 0.04)
--- NOTE | 2018-03-11 11:32 | Cardiology Consult Note ---
Date of Encounter: 03/11/18 Time of Encounter: 10:00 Assessment and Plan (1) Elevated troponin Current Visit: Yes Status: Acute Elevated troponin probably represents demand ischemia in secondary of known severe CAD. Troponin has now downtrended. Recommend continuing heparin drip for now as well as asa/plavix. Patient is chest pain free. Case to be reviewed with Interventional Cardiology in AM. (2) Wide-complex tachycardia Current Visit: Yes Status: Acute Patient presented with a wide-complex tachycardia which converted to normal sinus rhythm with a bolus of amiodarone. Patient remained hemodynamically stable throughout this event. Presenting EKG, post event EKG and an old EKG were reviewed in detail. There are some findings favoring SVT with aberrancy but given the extreme axis deviation on ECG and history of known severe CAD and systolic dysfunction, VT is likely. Incidentally, the patient also experienced VT and VF periprocedurally during a LHC in 2014. He was placed on amiodarone at that time but was stopped as outpatient due to concern for neuropathy. Patient had a 3 beat run of NSVT and 6 beat run of PSVT on telemetry overnight. He has remained hemodynamically stable. Will have EP review the case Monday. May need to consider ICD if VT confirmed. For now continue beta brent. Repeat electrolytes. (3) Coronary artery disease Current Visit: No Status: Chronic History of remote bypass having recently undergone left heart catheterization demonstrating severe [place] CAD with 1/4 patent bypass grafts (RODRÍGUEZ). Intervention was not performed. Medical management recommended. Continue asa, plavix, statin. Qualifiers: Coronary Disease-Associated Artery/Lesion type: bypass graft [place] vs. transplanted heart: [place] heart Associated angina: without angina Qualified Code(s): I25.810 - Atherosclerosis of coronary artery bypass graft(s) without angina pectoris (4) Systolic dysfunction, left ventricle Current Visit: No Status: Chronic LV systolic function 30% by heart catheterization January 30. Previously documented at 35-40% in September 2017. We will obtain an echo for further eval uation. Patient otherwise appears fairly compensated. Recommend continuing medical therapy - BB, ACEI/HCTZ. Unable to uptitrate due to low normal BP. Discussion w patient/family: The assessment and plan as outlined above was discussed with the patient and/or family members who expressed understanding and agreement. All questions were answered. Thank you for involving us in the care of your patient. Please call with any questions. History of Present Illness Consult date: 03/11/18 Requesting physician: Edinson Maravilla Consult reason: tachycardia Chief complaint: chest burning History of present illness: Mr. Clark is a 72 year old male who presented to the emergency department yesterday evening in a wide complex tachycardia. Please see cardiology event note 03/10/2018 at 17:30 for details at that time. Briefly, patient presented in a wide complex tachycardia. He was stable without hemodynamic compromise. IV amiodarone bolus was given and patient converted to normal sinus rhythm. Again, patient was hemodynamically stable throughout this time. Medical history significant for CAD and remote bypass in 2002. He recently underwent a left heart catheterization 01/30/2018 demonstrating one out of 4 patent bypass grafts (RODRÍGUEZ patent) with LVEF 30%, heavily calcified vessels. Intervention was not performed. Echo from September 2017 demonstrated EF 35-40%. At the bedside, the patient is in no acute distress. He states that he feels very tired. He tells me that since his heart catheterization he has noted a burning in the chest. He states he's had symptoms approximately 10 times and has taken SL NTG which resolved symptoms. However, yesterday he was outside working when symptoms began. He came into the house and took NTG without relief prompting patient to go to ER. Past Med Surg Social Fam HX - Past Medical History Attestation: Yes The following information was validated with the patient. Medical history: coronary artery disease, diabetes, GERD, hyperlipidemia, hypertension, other Additional medical history: colon polyps, gastritis Psychiatric history: no psych history - Past Surgical History Surgical History: angioplasty/stent, cholecystectomy, coronary bypass (CABG), other Additional surgical history: amputation right hand, colonoscopy, egd - Social History Smoking Status: Never smoker Smokeless Tobacco Status: No Alcohol use: none Drug use: none - Family History Father Living Status: Hx Family Cardiac Disorders: Yes (CAD) Hx Family Endocrine Disorder: Yes (Diabetes Mellitus) Mother Living Status: Hx Family Cardiac Disorders: Yes (CAD) Sister Living Status: Still Living Hx Family Cancer: Yes (Breast cancer) Hx Family Neuromuscular Disorders: Yes (Scoliosis) Medications and Allergies Multivitamin/Iron/Folic Acid [Centrum Complete Multivit Tab] 1 tab PO DAILY 04/14 [History] Clopidogrel [Plavix] 75 mg PO DAILY 02/14/17 [History] Carvedilol [Coreg] 12.5 mg PO BID 04/11/17 [History] metFORMIN [Glucophage] 1,000 mg PO BIDWM 04/11/17 [History] Aspirin 81 mg PO DAILY 06/26/17 [History] Nitroglycerin 0.4 mg PO Q5MIN PRN 10/19/17 [History] Omeprazole [PriLOSEC] 40 mg PO DAILY 10/19/17 [History] Promethazine [Phenergan] 25 mg PO DAILY PRN 10/19/17 [History] Quinapril/Hydrochlorothiazide [Quinapril-Hctz 10-12.5 mg Tab] 1 tab PO DAILY 10/19/17 [History] Rosuvastatin Calcium 40 mg PO DAILY 10/19/17 [History] Isosorbide MONOnitrate (24 HR) [Imdur] 30 mg PO DAILY 01/30/18 [History] Tramadol HCl [Ultram] 50 mg PO TID PRN 01/30/18 [History] Biotin 1 mg PO DAILY 03/10/18 [History] Gabapentin [Neurontin] 800 mg PO TID 03/10/18 [History] Loperamide HCl [Imodium A-D] 2 mg PO DAILY PRN 03/10/18 [History] Allergy/AdvReac Type Severity Reaction Status Date / Time No Known Allergies Allergy Verified 10/19/17 14:26 All Systems Review: The remainder of the systems were reviewed and are negative - Cardiovascular Cardiovascular: as per HPI Physical Examination Vital Signs, Last 4 Hours Temp Pulse Resp BP Pulse Ox 03/11/18 11:16 98.5 F 85 18 126/74 96 General: Conversant, No Apparent Distress, Other (affect flat) HEENT: Atraumatic, Mucus Membranes Moist Neck: No JVD, Normal carotid pulses Cardiac: Reg Rate and Rhythm, Normal S1 and S2, No Murmur Lungs: Normal Breath Sounds, No Wheeze, Rales, Rhonchi Neuro: Alert and responsive, No focal deficits noted Abdomen: Soft, Non-Tender Extremities: No Edema, Normal Pulses Results 03/11/18 04:25 03/11/18 04:25 Lab Results 03/10/18 03/10/18 03/10/18 16:26 16:26 16:26 WBC 9.9 Hgb 12.4 L Hct 38.4 Plt Count 228 INR 1.0 APTT 31.7 Sodium Potassium Chloride Carbon Dioxide BUN Creatinine Glucose Calcium Magnesium Troponin I B-Natriuretic Peptide 851 H 03/10/18 03/10/18 03/10/18 16:26 22:26 23:55 WBC Hgb Hct Plt Count INR APTT > 360.0 H* D Sodium 140 Potassium 4.0 Chloride 104 Carbon Dioxide 26 BUN 20 Creatinine 1.44 H Glucose 178 H Calcium 9.6 Magnesium 1.4 L Troponin I < 0.03 3.50 H* B-Natriuretic Peptide 03/10/18 03/10/18 03/11/18 23:55 23:55 04:25 WBC 6.8 Hgb 10.2 L D Hct 31.3 L Plt Count 175 INR 1.1 APTT Sodium Potassium Chloride Carbon Dioxide BUN Creatinine Glucose Calcium Magnesium Troponin I 4.06 H* B-Natriuretic Peptide 03/11/18 03/11/18 03/11/18 04:25 04:25 04:25 WBC 7.5 Hgb 10.4 L Hct 32.5 L Plt Count 192 INR APTT 76.3 H D Sodium 143 Potassium 3.6 Chloride 107 Carbon Dioxide 29 BUN 18 Creatinine 1.28 Glucose 128 H Calcium 8.6 Magnesium Troponin I B-Natriuretic Peptide - Imaging and Cardiology Stress Test: report reviewed Echo: report reviewed (09/2017) Cardiac cath: report reviewed (01/30/2018) - EKG Interpretation EKG results cardiology: personally reviewed (Presenting ECG demonstrates regular wide-complex tachycardia heart rate 178 bpm with a LBBB morhpology, old an terior [place] 02/08/18@16:55 demonstrates normal sinus rhythm,IVCD, PVCs, no acute ischemic ST-T findings), other (Telemetry demonstrates average heart rate 82 bpm with a 3 beat run of NSVT and a 6 beat run of PSVT) Consult Discharge Plan - Plan Referrals: Angelika Montalvo, HAT LINER [Primary Care Provider] -
[2018-03-11] MEDS: Isosorbide MONOnitrate (24 HR) 60 MG TAB.ER.24H PO SCH (12:20)
[2018-03-11] MEDS: Gabapentin 400 MG CAPSULE PO SCH ×3 (12:20→20:31)
[2018-03-11] MEDS: Aspirin 81 MG TAB.CHEW PO SCH (12:21)
[2018-03-11] MEDS: Multivit/Ca/Min/Fe/FA 1 TAB TABLET PO SCH (12:21)
[2018-03-11] MEDS: (Biotin [Biotin] 1 MG) PO SCH (12:21)
[2018-03-11 13:14] LABS: Magnesium 1.8 mg/dL (1.6-2.6)
--- NOTE | 2018-03-11 13:28 | Internal Med Progress Note ---
Hospitalist Progress Note - Encounter Date of Encounter: 03/11/18 Time of Encounter: 09:00 - Subjective Interval History: Pt laying on bed comfortably. Denies chest pain or SOB or palpitation. Vitals stable. - Exam Vitals: Temp Pulse Resp BP Pulse Ox 98.5 F 85 18 126/74 96 03/11/18 11:16 18 11:16 03/11/18 11:16 03/11/18 11:16 03/11/18 11:16 Exam: Patient in no acute distress, resting comfortably in bed HEENT: NC/AT, PERRL Neck: Supple, No JVD Lungs: CTA b/l Heart: S1S2, RRR, no murmurs Abd: Soft, NT, BS present Ext: No pedal edema Neuro: No focal deficit. - Assessment and Plan (1) Chest pain Current Visit: Yes Status: Acute Assessment and Plan: Chest pain free now. With elevated troponin. On heparin drip. - Cont cardiac mornitoring. - Follow cardio further recommendation. (2) Diabetes mellitus Current Visit: No Status: Chronic Assessment and Plan: Hold home metformin - SSI while admitted (3) Hypertension Current Visit: No Status: Chronic Assessment and Plan: BP controlled - Continue home meds (4) Wide-complex tachycardia Current Visit: Yes Status: Acute Assessment and Plan: Per cardio, likely LBBB with tachycardia. Switch to sinus rhythm now with normal HR. - Mg 1.8 this AM - Cont cardiac monitoring. - Follow cardio further recommendations. (5) Systolic CHF Current Visit: Yes Status: Acute Assessment and Plan: EF 30%. Pt denies SOB, appears euvolemic upon exam. - On cavedilol and lisinopril at home, will cont. - Not on lasix at home. - Further management will follow cardio recommendation. DVT Prophylaxis: On heparin drip - Time Spent with Patient Total time spent is greater than 50% in coordination of care (as documented) at patient's floor/unit and/or counseling patient: 30 min 25 - 35 minutes Plan of Care Discussed with: patient Internal Medicine: Result - Labs CBC & Chem 7: 03/11/18 04:25 03/11/18 04:25 Labs: Short CBC 03/10/18 03/10/18 03/11/18 Range/Units 16:26 23:55 04:25 WBC 9.9 6.8 7.5 (4.3-11.1) K/mcL Hgb 12.4 L 10.2 L D 10.4 L (12.9-16.9) g/dL Hct 38.4 31.3 L 32.5 L (37.5-50.1) % Plt Count 228 175 192 (140-400) K/mcL Neutrophils # 6.8 4.9 (1.6-8.9) K/mcL BMP 03/10/18 03/11/18 03/11/18 16:26 04:25 10:47 Sodium 140 143 Cancelled Potassium 4.0 3.6 Cancelled Chloride 104 107 Cancelled Carbon Dioxide 26 29 Cancelled BUN 20 18 Cancelled Creatinine 1.44 H 1.28 Cancelled Glucose 178 H 128 H Cancelled Calcium 9.6 8.6 Cancelled Cardiac Enzymes 03/10/18 03/10/18 03/11/18 Range/Units 16:26 22:26 04:25 Troponin I < 0.03 3.50 H* 4.06 H* (< 0.04) ng/mL 03/11/18 Range/Units 10:47 Troponin I 3.04 H* (< 0.04) ng/mL - ABG Interpretation ABG results: PT/INR, D-dimer PT 12.5 Seconds (9.4-12.1) H 03/10/18 23:55 - Impressions Impressions Chest X-Ray 03/10/18 16:32 IMPRESSION: Bibasilar atelectasis. 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
[2018-03-12 00:41] LABS: Basophils % 0.2 %; Eosinophils # 0.2 K/mcL (0.0-0.6); Eosinophils % 2.3 %; Hematocrit 33.2 % (37.5-50.1); Hemoglobin 10.8 g/dL (12.9-16.9); Immature Granulocytes % 0.2 % (0-4); Lymphocytes # 1.6 K/mcL (0.6-4.6); Lymphocytes % 18.2 %; Mean Corpuscular HGB Conc 32.5 g/dL (31.6-35.5); Mean Corpuscular Hemoglobin 26.5 pg (28.0-33.3); Mean Corpuscular Volume 81.6 fL (83.0-100.0); Mean Platelet Volume 10.9 fL (9.4-12.4); Monocytes % 10.9 %; Platelet Count 179 K/mcL (140-400); Red Blood Count 4.07 M/mcL (4.19-5.50); Segmented Neutrophils % 68.2 %
[2018-03-12 01:01] LABS: BUN/Creatinine Ratio 11 (6-26); Blood Urea Nitrogen 14 mg/dL (8-23); Calcium 9.1 mg/dL (8.6-10.3); Carbon Dioxide 29 mEq/L (23-29); Chloride 108 mEq/L (98-107); Glucose 113 mg/dL (70-105); Magnesium 1.8 mg/dL (1.6-2.6); Osmolality,Calculated 297 (280-300); Sodium 143 mEq/L (136-145); eGFR For Non-African Americans 56 (> 60)
[2018-03-12 01:13] LABS: Thyroid Stimulating Hormone 1.227 mcIU/mL (0.340-5.600)
[2018-03-12] MEDS: Heparin 25,000 UNIT/500 ML D5W 25,000 UNIT/500 ML BAG IVC SCH (05:12)
[2018-03-12] MEDS: Insulin LISPRO 300 UNITS/3 ML VIAL SQ SCH ×4 (07:22→19:58)
[2018-03-12] MEDS: traMADol 50 MG TABLET PO PRN ×2 (09:11→15:05)
[2018-03-12] MEDS: (Biotin [Biotin] 1 MG) PO SCH (09:13)
[2018-03-12] MEDS: Isosorbide MONOnitrate (24 HR) 60 MG TAB.ER.24H PO SCH (09:13)
[2018-03-12] MEDS: Gabapentin 400 MG CAPSULE PO SCH ×3 (09:13→20:03)
[2018-03-12] MEDS: Aspirin 81 MG TAB.CHEW PO SCH (09:14)
[2018-03-12] MEDS: Multivit/Ca/Min/Fe/FA 1 TAB TABLET PO SCH (09:18)
--- NOTE | 2018-03-12 12:32 | Cardiology Progress Note ---
Addendum entered and electronically signed by Mitchell Lutz MD 03/12/18 15:34: I have personally performed a face to face evaluation on this patient. I have reviewed and agree with the documented findings and care plan as documented by the COMMUNICATIONS FIELD TECHNICIAN. History and Exam by me shows: 72-year-old male with history of CAD, ischemic cardiomyopathy. Most recent LHC a month ago, revealed lesions not amenable to PCI patient was thus recommended for medical therapy. Wide complex tachycardia noted on EKG on admission suggestive of SVT with aberrancy although given patient's underlying CAD, VT and not entirely ruled out. Most recent echocardiogram on 09/2017 revealed EF of 35- 40%. Obtain echocardiogram to document ejection fraction. Follow-up on EP consultation for possible primary prevention ICD. Thanks, Mitchell Lutz MD Original Note: Date of Encounter: 03/12/18 Time of Encounter: 09:45 Assessment and Plan (1) Elevated troponin Current Visit: Yes Status: Acute Per cardiology: -Elevated troponin probably represents demand ischemia in secondary of known severe CAD. Troponin has now downtrended. -Recent LHC 01/2018 with severe CAD, no intervention. Medical management was recommended. -Patient denies chest pain. -ECG with no acute ischemic ECG changes. -On heparin drip, asa, plavix, statin, BB. -TTE pending. -Last TTE 09/2017 with LVEF 35-40%, global hypokinesis. -Recommend continuing heparin drip 24-48 hours as well as asa/plavix. -Further recommendations pending TTE. -Again, recent LHC with severe CAD, medical management was recommended. (2) Wide-complex tachycardia Current Visit: Yes Status: Acute Per cardiology: -Patient presented with a wide-complex tachycardia which converted to normal sinus rhythm with a bolus of amiodarone. -Patient remained hemodynamically stable throughout this event. - Presenting EKG, post event EKG and an old EKG were reviewed in detail. -There are some findings favoring SVT with aberrancy but given the extreme axis deviation on ECG and history of known severe CAD and systolic dysfunction, VT is likely. Incidentally, the patient also experienced VT and VF periprocedurally during a LHC in 2014. He was placed on amiodarone at that time but was stopped as outpatient due to concern for neuropathy. -ECGs were reviewed with Dr.Edinson Hopkins, who states likely SVT with aberrency, however unable to rule out VT. -TTE pending. -Further recommendations pending TTE. -May need official EP consult pending TTE. Discussed and reviewed with . (3) Coronary artery disease Current Visit: No Status: Chronic Per cardiology: -History of remote bypass having recently undergone left heart catheterization demonstrating severe [place] CAD with 1/4 patent bypass grafts (RODRÍGUEZ). Intervention was not performed. Medical management recommended. Continue asa, plavix, statin. Qualifiers: Coronary Disease-Associated Artery/Lesion type: bypass graft [place] vs. transplanted heart: [place] heart Associated angina: without angina Qualified Code(s): I25.810 - Atherosclerosis of coronary artery bypass graft(s) without angina pectoris (4) Systolic dysfunction, left ventricle Current Visit: No Status: Chronic Per cardiology: -LV systolic function 30% by heart catheterization January 30. -Previously documented at 35-40% in September 2017. -We will obtain an echo for further evaluation. -Patient otherwise appears fairly compensated. Recommend continuing medical the rapy - BB, ACEI/HCTZ. Unable to uptitrate due to low normal BP. Discussion w patient/family: The assessment and plan as outlined above was discussed with the patient who ex pressed understanding and agreement. All questions were answered. Thank you for involving us in the care of your patient. Please call with any questions. Discussed and reviewed with . Subjective Principal diagnosis: chest pain Interval history: Patient resting in bed comfortably on exam. Denies angina, however states he has a dull ache in chest, different from his angina. Denies increased shortness of breath. Objective Vital Signs, Last 4 Hours Temp Pulse Resp BP Pulse Ox 03/12/18 11:44 98.5 F 76 16 109/68 94 03/12/18 09:15 79 General: Conversant, No Apparent Distress HEENT: Atraumatic, Normocephaly, Mucus Membranes Moist Neck: No JVD, Normal carotid pulses Cardiac: Reg Rate and Rhythm, Normal S1 and S2, No Murmur Lungs: Normal Breath Sounds, No Wheeze, Rales, Rhonchi Neuro: Alert and responsive, No focal deficits noted Abdomen: Soft, Non-Tender Skin: No rashes noted on visualized skin Musculoskeletal: No Chest Wall Tenderness Extremities: No Clubbing, No Cyanosis, No Edema, Normal Pulses Results 03/12/18 00:25 03/12/18 00:25 Lab Results Active Medications Aspirin (Aspirin) 81 mg PO DAILY [facility] Stop: 09/10/18 09:01 Last Admin: 03/12/18 09:14 Dose: 81 mg Carvedilol (Coreg) 12.5 mg PO BID [facility]; Protocol Stop: 09/09/18 21:01 Last Admin: 03/12/18 09:14 Dose: 12.5 mg Clopidogrel Bisulfate (Plavix) 75 mg PO DAILY [facility] Stop: 09/10/18 09:01 Last Admin: 03/12/18 09:14 Dose: 75 mg Dextrose/Water (Dextrose 50% (Syg)) 25 ml IVP AD PRN PRN Reason: Hypoglycemia Stop: 09/09/18 19:59 Gabapentin (Neurontin) 800 mg PO TID [facility] Stop: 09/09/18 21:01 Last Admin: 03/12/18 09:13 Dose: 800 mg Glucagon (Glucagen) 1 mg IM ONCE PRN PRN Reason: Hypoglycemia Stop: 09/09/18 19:59 Glucose (Gluctose) 15 gm PO ONCE PRN PRN Reason: Hypoglycemia Stop: 09/09/18 19:59 Glucose (Gluctose) 30 gm PO ONCE PRN PRN Reason: Hypoglycemia Stop: 09/09/18 19:59 Lisinopril/HCTZ (Prinzide 10-12.5) 1 each PO DAILY [facility] Stop: 09/10/18 09:01 Last Admin: 03/12/18 09:18 Dose: 1 each Heparin Sodium (Porcine) (Heparin) 3,900 unit 60 unit/kg (3900 unit) IVP Q6HR PRN PRN Reason: SEE COMMENTS Stop: 09/09/18 23:23 Heparin Sodium (Porcine) (Heparin) 2,000 unit 30 unit/kg (2000 unit) IVP Q6H PRN PRN Reason: SEE COMMENTS Stop: 09/09/18 23:23 Last Admin: 03/11/18 12:20 Dose: 2,000 unit Dextrose (Dextrose 5%) 1,000 mls @ 100 mls/hr IVC .Q10H PRN PRN Reason: HYPOGLYCEMIA Stop: 09/09/18 19:59 Heparin Sodium/Dextrose (Heparin 25,000 Unit/500 Ml D5w) 25,000 unit in 500 mls @ 15.744 mls/hr IVC .Q24H [facility]; Protocol Stop: 09/09/18 23:31 Last Admin: 03/12/18 05:12 Dose: 16 unit/kg/hr, 20.992 mls/hr Insulin Human Lispro (Humalog) 0 units SQ HS [facility]; Protocol Stop: 09/09/18 21:01 Last Admin: 03/11/18 20:58 Dose: Not Given Insulin Human Lispro (Humalog) 0 units SQ TIDAC [facility]; Protocol Stop: 09/10/18 07:31 Last Admin: 03/12/18 12:16 Dose: Not Given Isosorbide Mononitrate (Imdur) 30 mg PO DAILY [facility] Stop: 09/10/18 09:01 Last Admin: 03/12/18 09:13 Dose: 30 mg Loperamide HCl (Imodium) 2 mg PO DAILY [facility] Stop: 09/10/18 09:01 Last Admin: 03/12/18 09:18 Dose: Not Given Multivitamins/Calcium (Thera M Plus) 1 tab PO DAILY [facility] Stop: 09/10/18 09:01 Last Admin: 03/12/18 09:18 Dose: Not Given Naloxone HCl (Narcan) 0.4 mg IVP Q2MIN PRN PRN Reason: SEE COMMENTS Stop: 09/09/18 19:41 Nitroglycerin (Nitroglycerin) 0.4 mg SL Q5MIN PRN PRN Reason: Chest Pain Stop: 09/10/18 00:10 Omeprazole (Prilosec) 40 mg PO DAILY@0730 [facility] Stop: 09/10/18 07:31 Last Admin: 03/12/18 09:11 Dose: 40 mg Pharmacy Profile Note (Patient Taking Own Medication) 0 each PO DAILY [facility] Stop: 09/10/18 09:01 Last Admin: 03/12/18 09:13 Dose: Not Given Promethazine HCl (Phenergan) 25 mg PO DAILY PRN PRN Reason: Nausea Stop: 09/09/18 19:38 Rosuvastatin Calcium (Crestor) 40 mg PO DAILY [facility] Stop: 09/10/18 09:01 Last Admin: 03/12/18 09:14 Dose: 40 mg Tramadol HCl (Ultram) 50 mg PO TID PRN PRN Reason: Pain Stop: 09/09/18 19:38 Last Admin: 03/12/18 09:11 Dose: 50 mg Laboratory Tests 03/10/18 03/10/18 03/10/18 16:26 16:26 22:26 Hgb Creatinine 1.44 H Troponin I < 0.03 3.50 H* B-Natriuretic Peptide 851 H 03/11/18 03/11/18 03/12/18 04:25 10:47 00:25 Hgb 10.8 L Creatinine Troponin I 4.06 H* 3.04 H* B-Natriuretic Peptide 03/12/18 00:25 Hgb Creatinine 1.26 Troponin I B-Natriuretic Peptide - Imaging and Cardiology Chest Xray: report reviewed Echo: pending, report reviewed Cardiac cath: report reviewed - EKG Interpretation EKG results cardiology: other (Telemetry reviewed with average HR previous 12 hours noted to be 84, SR. PVCs, couplets, triplets noted.) Consult Discharge Plan - Plan Referrals: Angelika Montalvo, RENETTA [Primary Care Provider] - 03/20/18 9:00 am Shaorn Mendoza DO [Partnered Physician] - (office to call patient at home with follow up appointment)
--- NOTE | 2018-03-12 13:11 | Internal Med Progress Note ---
Hospitalist Progress Note - Encounter Date of Encounter: 03/12/18 Time of Encounter: 09:00 - Subjective Interval History: Pt laying on bed comfortably. Denies chest pain or SOB or palpitation. Vitals stable. C/o tired and depressed but denies SI. - Exam Vitals: Temp Pulse Resp BP Pulse Ox 98.5 F 76 16 109/68 94 03/12/18 11:44 03/12/18 11:44 03/12/18 11:44 03/12/18 11:44 03/12/18 11:44 Exam: Patient in no acute distress, resting comfortably in bed HEENT: NC/AT, PERRL Neck: Supple, No JVD Lungs: CTA b/l Heart: S1S2, RRR, no murmurs Abd: Soft, NT, BS present Ext: No pedal edema Neuro: No focal deficit. - Assessment and Plan (1) Chest pain Current Visit: Yes Status: Acute Assessment and Plan: Chest pain free now. With elevated troponin. On heparin drip. - Cont cardiac mornitoring. - Pt has recent LHC about one month ago, shows severe stenosis, did not have intervention. Recommended medical treatment. - Per cardiology, will continue heparin drip for 48 hours and continue medical treatment. Pending TTE. (2) Diabetes mellitus Current Visit: No Status: Chronic Assessment and Plan: Hold home metformin - SSI while admitted (3) Hypertension Current Visit: No Status: Chronic Assessment and Plan: BP controlled - Continue home meds (4) Wide-complex tachycardia Current Visit: Yes Status: Acute Assessment and Plan: Per cardio, likely SVT with aberrancy. Cannot rule out VT. Switch to sinus rhythm now with normal HR. - Mg 1.8 this AM - Cont cardiac monitoring. - Follow cardio further recommendations. TTE pending. (5) Systolic CHF Current Visit: Yes Status: Acute Assessment and Plan: EF 30%. Pt denies SOB, appears euvolemic upon exam. - On cavedilol and lisinopril at home, will cont. - Not on lasix at home. On HCTZ. - TTE pending. (6) Depression Current Visit: Yes Status: Suspected Assessment and Plan: Patient feels depressed after his 1 year ago. Denies suicidal ideation. TSH within normal limit. Can consider outpatient psych evaluation. DVT Prophylaxis: On heparin drip. - Time Spent with Patient Total time spent is greater than 50% in coordination of care (as documented) at patient's floor/unit and/or counseling patient: 30 minutes 25 - 35 minutes Plan of Care Discussed with: patient Internal Medicine: Result - Labs CBC & Chem 7: 03/12/18 00:25 03/12/18 00:25 Labs: Short CBC 03/12/18 Range/Units 00:25 WBC 8.8 (4.3-11.1) K/mcL Hgb 10.8 L (12.9-16.9) g/dL Hct 33.2 L (37.5-50.1) % Plt Count 179 (140-400) K/mcL Neutrophils # 6.0 (1.6-8.9) K/mcL BMP 03/12/18 00:25 Sodium 143 Potassium 4.0 Chloride 108 H Carbon Dioxide 29 BUN 14 Creatinine 1.26 Glucose 113 H Calcium 9.1 - ABG Interpretation ABG results: PT/INR, D-dimer PT 12.5 Seconds (9.4-12.1) H 03/10/18 23:55 Consult Discharge Plan - Plan Referrals: Angelika Montalvo, RENETTA [Primary Care Provider] - 03/20/18 9:00 am Sharon Mendoza DO [Partnered Physician] - (office to call patient at home with follow up appointment) (1) Chest pain Qualifiers: Chest pain type: unspecified Qualified Code(s): R07.9 - Chest pain, unspecified (2) Diabetes mellitus Qualifiers: Diabetes mellitus type: type 2 Diabetes mellitus group home insulin use: unspecified group home insulin use status Diabetes mellitus complication status: without complication Qualified Code(s): E11.9 - Type 2 diabetes mellitus without complications (3) Hypertension Qualifiers: Hypertension type: essential hypertension Qualified Code(s): I10 - Essential (primary) hypertension (5) Systolic CHF Qualifiers: Heart failure chronicity: chronic Qualified Code(s): I50.22 - Chronic systolic (congestive) heart failure (6) Depression Qualifiers: Depression Type: reactive depression Qualified Code(s): F32.9 - Major depressive disorder, single episode, unspecified
[2018-03-12] MEDS ORDERED: Perflutren Lipid Microsphere 1.3 ML in 0.9 % Sodium Chloride 8.7 ML IVP ONE (14:58)
[2018-03-13] MEDS: Heparin 25,000 UNIT/500 ML D5W 25,000 UNIT/500 ML BAG IVC SCH (03:00)
[2018-03-13 04:32] LABS: Basophils % 0.4 %; Eosinophils # 0.4 K/mcL (0.0-0.6); Hematocrit 32.7 % (37.5-50.1); Hemoglobin 10.5 g/dL (12.9-16.9); Immature Granulocytes % 0.4 % (0-4); Lymphocytes # 1.8 K/mcL (0.6-4.6); Lymphocytes % 22.5 %; Mean Corpuscular HGB Conc 32.1 g/dL (31.6-35.5); Mean Corpuscular Hemoglobin 26.1 pg (28.0-33.3); Mean Corpuscular Volume 81.3 fL (83.0-100.0); Mean Platelet Volume 10.9 fL (9.4-12.4); Monocytes # 0.8 K/mcL (0.0-1.3); Monocytes % 10.7 %; Neutrophils # 4.8 K/mcL (1.6-8.9); Platelet Count 168 K/mcL (140-400); Red Blood Count 4.02 M/mcL (4.19-5.50); Red Cell Distribution Width 14.7 % (11.5-14.5)
[2018-03-13 04:51] LABS: BUN/Creatinine Ratio 16 (6-26); Blood Urea Nitrogen 17 mg/dL (8-23); Carbon Dioxide 28 mEq/L (23-29); Chloride 106 mEq/L (98-107); Glucose 133 mg/dL (70-105); Magnesium 1.6 mg/dL (1.6-2.6); Osmolality,Calculated 297 (280-300); Potassium 3.8 mEq/L (3.5-5.1); Sodium 142 mEq/L (136-145); eGFR For Non-African Americans > 60 (> 60)
[2018-03-13] MEDS: Aspirin 81 MG TAB.CHEW PO SCH (08:45)
[2018-03-13] MEDS: Multivit/Ca/Min/Fe/FA 1 TAB TABLET PO SCH (08:46)
[2018-03-13] MEDS: Isosorbide MONOnitrate (24 HR) 60 MG TAB.ER.24H PO SCH (08:46)
[2018-03-13] MEDS: traMADol 50 MG TABLET PO PRN ×2 (08:46→14:44)
[2018-03-13] MEDS: (Biotin [Biotin] 1 MG) PO SCH (08:47)
[2018-03-13] MEDS: Gabapentin 400 MG CAPSULE PO SCH ×3 (08:47→19:54)
[2018-03-13] MEDS: Insulin LISPRO 300 UNITS/3 ML VIAL SQ SCH ×4 (08:48→23:37)
--- NOTE | 2018-03-13 10:16 | Electrophysiology Consult Note ---
<Constantine Lockhart Gary - Last Filed: 03/13/18 14:09> Date of Encounter: 03/13/18 Time of Encounter: 10:15 Assessment and Plan (1) Wide-complex tachycardia Current Visit: Yes Status: Acute Per EP: Presented with a wide-complex tachycardia which converted to normal sinus rhythm with a bolus of amiodarone, hemodynamically stable throughout this event. EKGs reviewed with Dr. Edinson Hopkins. Findings favoring SVT with aberrancy but given axis deviation, known severe CAD and systolic dysfunction EF 30-35%, VT cannot be ruled out. Hx of VT and VF periprocedurally during a [facility] in 2014, placed on amiodarone at that time, stopped outpatient due to concern for neuropathy. TTE 09/2017 EF 35-40%. TTE repeated shows EF further reduced to 30-35%. Peak troponin 4.06. [facility] 01/30/2018 demonstrated 1 of 4 patent bypass grafts (RODRÍGUEZ patent), heavily calcified vessels, EF 30%. Intervention was not performed. 12 hr tele AVG HR 74, 3 beat run NSVT. On BB--Coreg 12.5mg BID. K 3.8, Mag 1.6--replace. Discussed and reviewed with Dr. Edinson Hopkins. Follow-up as outpt to determine if ICD insertion is warranted (possible BiV?). EF has not been <35% for >90 days to warrant inpt insertion for primary prevention and presenting rhythm appears A- Flutter with aberrancy. EP signing off. Reconsult PRN. Outpt follow-up. (2) Systolic dysfunction, left ventricle Current Visit: Yes Status: Chronic Per EP: LV systolic function 30% on [facility] January 30. Previously documented at 35-40% on TTE 09/2017. Repeat TTE EF 30-35%. Patient otherwise appears fairly compensated. Recommend continuing medical therapy - BB, ACEI/HCTZ. Unable to uptitrate due to low normal BP. Plan as above. Discussion w patient/family: The assessment and plan as outlined above was discussed with the patient and/or family members who expressed understanding and agreement. All questions were answered. Thank you for involving us in the care of your patient. Please call with any questions. I will discuss all the above with Dr. Edinson Hopkins and make changes as necessary. History of Present Illness Consult date: 03/13/18 Requesting physician: Mariella Benitez Consult reason: ICD Chief complaint: chest pain History of present illness: Mr. Clark is a 72 year old male with PMH of CAD s/p CABG, HTN, HLD, ICMP, systolic CHF that presented to ED for chest pain/burning, found to be in a wide complex tachycardia on 03/10/18. IV amiodarone bolus was given and patient converted to normal sinus rhythm. He recently underwent LHC 01/30/2018 demonstr ating one out of 4 patent bypass grafts (RODRÍGUEZ patent) with LVEF 30%, heavily calcified vessels. Intervention was not performed. Echo from September 2017 demonstrated EF 35-40%. TTE repeated this admission shows EF further reduced 30- 35%. ECG on admission likely A-Flutter with aberrancy, but VT unable to be ruled out. Given presenting rhythm and further reduced EF, EP consulted for further recs regarding ICD insertion. Pt denies palpitations, dizziness, lightheadedness, or syncope. Peak troponin 4.06. Past Med Surg Social Fam HX - Past Medical History Medical history: coronary artery disease, diabetes, GERD, hyperlipidemia, hype rtension, other Additional medical history: colon polyps, gastritis Psychiatric history: no psych history - Past Surgical History Surgical History: angioplasty/stent, cholecystectomy, coronary bypass (CABG), other Additional surgical history: amputation right hand, colonoscopy, egd - Social History Smoking Status: Never smoker Smokeless Tobacco Status: No Alcohol use: none Drug use: none - Family History Father Living Status: Hx Family Cardiac Disorders: Yes (CAD) Hx Family Endocrine Disorder: Yes (Diabetes Mellitus) Mother Living Status: Hx Family Cardiac Disorders: Yes (CAD) Sister Living Status: Still Living Hx Family Cancer: Yes (Breast cancer) Hx Family Neuromuscular Disorders: Yes (Scoliosis) Medications and Allergies RX: Multivitamin/Iron/Folic Acid [Centrum Complete Multivit Tab] 1 tab PO DAILY 12/10/14 [History] RX: Clopidogrel [Plavix] 75 mg PO DAILY 02/14/17 [History] RX: Carvedilol [Coreg] 12.5 mg PO BID 04/11/17 [History] RX: metFORMIN [Glucophage] 1,000 mg PO BIDWM 04/11/17 [History] RX: Aspirin 81 mg PO DAILY 06/26/17 [History] RX: Nitroglycerin 0.4 mg PO Q5MIN PRN 10/19/17 [History] RX: Omeprazole [PriLOSEC] 40 mg PO DAILY 10/19/17 [History] RX: Promethazine [Phenergan] 25 mg PO DAILY PRN 10/19/17 [History] RX: Quinapril/Hydrochlorothiazide [Quinapril-Hctz 10-12.5 mg Tab] 1 tab PO DAILY 10/19/17 [History] RX: Rosuvastatin Calcium 40 mg PO DAILY 10/19/17 [History] RX: Isosorbide MONOnitrate (24 HR) [Imdur] 30 mg PO DAILY 01/30/18 [History] RX: Tramadol HCl [Ultram] 50 mg PO TID PRN 01/30/18 [History] RX: Biotin 1 mg PO DAILY 03/10/18 [History] RX: Gabapentin [Neurontin] 800 mg PO TID 03/10/18 [History] RX: Loperamide HCl [Imodium A-D] 2 mg PO DAILY PRN 03/10/18 [History] Allergy/AdvReac Type Severity Reaction Status Date / Time No Known Allergies Allergy Verified 10/19/17 14:26 All Systems Review: The remainder of the systems were reviewed and are negative - Cardiovascular Cardiovascular: as per HPI, chest pain at rest, chest pain with exertion, dyspnea on exertion - Respiratory Respiratory: dyspnea Physical Examination Vital Signs, Last 4 Hours Temp Pulse Resp BP Pulse Ox 03/13/18 07:46 97.7 F 74 16 114/80 94 Vital Signs Temp Pulse Resp BP Pulse Ox 03/13/18 07:46 97.7 F 74 16 114/80 94 03/13/18 04:33 97.7 F 62 18 104/65 96 03/13/18 04:02 97.7 F 76 18 104/65 96 03/13/18 00:09 67 03/12/18 23:46 98.1 F 73 18 95/52 96 03/12/18 21:07 82 03/12/18 19:48 97.6 F 85 18 111/74 96 03/12/18 16:31 98.2 F 84 18 105/55 95 03/12/18 11:44 98.5 F 76 16 109/68 94 Intake and Output 03/12/18 03/13/18 03/13/18 23:59 07:59 15:59 Intake Total 480 / 480 500 / 500 240 / 240 Output Total 300 / 300 350 / 350 300 / 300 Balance 180 / 180 150 / 150 -60 / -60 Intake: IV Fluids 500 / 500 Heparin 25,000 UNIT/500 ML D5W 500 / 500 25,000 unit In 500 ml @ 12 UNIT /KG/HR 15.744 mls/hr IVC .Q24H [facility] Rx#:[id number] Oral 480 / 480 240 / 240 Output: Urine 300 / 300 350 / 350 300 / 300 Other: Meal Dinner Breakfast Percent of Meal Consumed 100% 50% Weight 65 kg Blood Glucose* 124 119 Patient Weight 03/13/18 23:59 Weight 65 kg General: Conversant, No Apparent Distress HEENT: Atraumatic, Normocephaly, Mucus Membranes Moist Neck: No JVD, Normal carotid pulses Cardiac: Reg Rate and Rhythm, Normal S1 and S2, No Murmur Lungs: Normal Breath Sounds, No Wheeze, Rales, Rhonchi Neuro: Alert and responsive, No focal deficits noted Abdomen: Soft, Non-Tender Skin: No rashes noted on visualized skin Musculoskeletal: No Chest Wall Tenderness Extremities: No Clubbing, No Cyanosis, No Edema, Normal Pulses Results 03/13/18 03:58 03/13/18 03:58 Lab Results 03/13/18 03/13/18 03:58 03:58 WBC 7.8 Hgb 10.5 L Hct 32.7 L Plt Count 168 Sodium 142 Potassium 3.8 Chloride 106 Carbon Dioxide 28 BUN 17 Creatinine 1.09 Glucose 133 H Calcium 9.0 Magnesium 1.6 Short CBC 03/13/18 Range/Units 03:58 WBC 7.8 (4.3-11.1) K/mcL Hgb 10.5 L (12.9-16.9) g/dL Hct 32.7 L (37.5-50.1) % Plt Count 168 (140-400) K/mcL Neutrophils # 4.8 (1.6-8.9) K/mcL BMP 03/13/18 Range/Units 03:58 Sodium 142 (136-145) mEq/L Potassium 3.8 (3.5-5.1) mEq/L Chloride 106 (98-107) mEq/L Carbon Dioxide 28 (23-29) mEq/L BUN 17 (8-23) mg/dL Creatinine 1.09 (0.70-1.30) mg/dL Glucose 133 H (70-105) mg/dL Calcium 9.0 (8.6-10.3) mg/dL Impressions Echocardiogram Limited Views 03/12/18 08:58 Impressions: Limited Echo. LVEF 30-35 %. Severe global left ventricular systolic dysfunction. Upper normal LV chamber size with mild LVH. Normal right ventricular structure and function. Mildly dilated left atrium. Left Ventricular Wall Motion: Rest Echo Findings The apex, apical inferior, mid inferior, basal inferior, apical anterior, mid anterior, basal anterior, apical septal, mid inferior septal, basal inferior septal, apical lateral, mid anterior lateral, basal anterior lateral, mid anterior septal, mid inferior lateral, basal anterior septal and basal inferior lateral day were hypokinetic. Findings: ECG Findings * Sinus rhythm with BBB. * Sinus rhythm with PVCs. Left Ventricle * LVEF 30-35%. * Upper normal LV chamber size with mild LVH. * Severe global left ventricular systolic dysfunction. * Atypical septal motion consistent with bundle branch block. Right Ventricle * Normal right ventricular structure and function. Left Atrium * Mildly dilated left atrium. Right Atrium * Normal right atrial size. Study Quality * Technically sub-optimal due to clinical status. Active Medications Aspirin (Aspirin) 81 mg PO DAILY [facility] Stop: 09/10/18 09:01 Last Admin: 03/13/18 08:45 Dose: 81 mg Carvedilol (Coreg) 12.5 mg PO BID [facility]; Protocol Stop: 09/09/18 21:01 Last Admin: 03/13/18 08:43 Dose: 12.5 mg Clopidogrel Bisulfate (Plavix) 75 mg PO DAILY [facility] Stop: 09/10/18 09:01 Last Admin: 03/13/18 08:44 Dose: 75 mg Dextrose/Water (Dextrose 50% (Syg)) 25 ml IVP AD PRN PRN Reason: Hypoglycemia Stop: 09/09/18 19:59 Gabapentin (Neurontin) 800 mg PO TID [facility] Stop: 09/09/18 21:01 Last Admin: 03/13/18 08:47 Dose: 800 mg Glucagon (Glucagen) 1 mg IM ONCE PRN PRN Reason: Hypoglycemia Stop: 09/09/18 19:59 Glucose (Gluctose) 15 gm PO ONCE PRN PRN Reason: Hypoglycemia Stop: 09/09/18 19:59 Glucose (Gluctose) 30 gm PO ONCE PRN PRN Reason: Hypoglycemia Stop: 09/09/18 19:59 Lisinopril/HCTZ (Prinzide 10-12.5) 1 each PO DAILY [facility] Stop: 09/10/18 09:01 Last Admin: 03/13/18 08:47 Dose: 1 each Dextrose (Dextrose 5%) 1,000 mls @ 100 mls/hr IVC .Q10H PRN PRN Reason: HYPOGLYCEMIA Stop: 09/09/18 19:59 Insulin Human Lispro (Humalog) 0 units SQ HS [facility]; Protocol Stop: 09/09/18 21:01 Last Admin: 03/12/18 19:58 Dose: Not Given Insulin Human Lispro (Humalog) 0 units SQ TIDAC [facility]; Protocol Stop: 09/10/18 07:31 Last Admin: 03/13/18 08:48 Dose: Not Given Isosorbide Mononitrate (Imdur) 30 mg PO DAILY [facility] Stop: 09/10/18 09:01 Last Admin: 03/13/18 08:46 Dose: 30 mg Loperamide HCl (Imodium) 2 mg PO DAILY [facility] Stop: 09/10/18 09:01 Last Admin: 03/13/18 08:45 Dose: 2 mg Multivitamins/Calcium (Thera M Plus) 1 tab PO DAILY [facility] Stop: 09/10/18 09:01 Last Admin: 03/13/18 08:46 Dose: 1 tab Naloxone HCl (Narcan) 0.4 mg IVP Q2MIN PRN PRN Reason: SEE COMMENTS Stop: 09/09/18 19:41 Nitroglycerin (Nitroglycerin) 0.4 mg SL Q5MIN PRN PRN Reason: Chest Pain Stop: 09/10/18 00:10 Omeprazole (Prilosec) 40 mg PO DAILY@0730 [facility] Stop: 09/10/18 07:31 Last Admin: 03/13/18 08:44 Dose: 40 mg Pharmacy Profile Note (Patient Taking Own Medication) 0 each PO DAILY [facility] Stop: 09/10/18 09:01 Last Admin: 03/13/18 08:47 Dose: Not Given Promethazine HCl (Phenergan) 25 mg PO DAILY PRN PRN Reason: Nausea Stop: 09/09/18 19:38 Rosuvastatin Calcium (Crestor) 40 mg PO DAILY [facility] Stop: 09/10/18 09:01 Last Admin: 03/13/18 08:47 Dose: 40 mg Tramadol HCl (Ultram) 50 mg PO TID PRN PRN Reason: Pain Stop: 09/09/18 19:38 Last Admin: 03/13/18 08:46 Dose: 50 mg - Imaging and Cardiology Echo: report reviewed Cardiac cath: report reviewed - EKG Interpretation EKG results cardiology: other (12 hr tele AVG HR 74, SR, 3 beat run NSVT) Consult Discharge Plan - Plan Referrals: Angelika Montalvo, WHEEL LOADER OPERATOR [Primary Care Provider] - 03/20/18 9:00 am Sharon Mendoza DO [Partnered Physician] - (office to call patient at home with follow up appointment) <Edinson Hopkins - Last Filed: 03/14/18 14:00> Date of Encounter: 03/14/18 - Attending Attestation I have personally performed a face to face evaluation on this patient. I have reviewed and agree with the care plan. History and Exam by me shows: Known ischemic cardiomyopathy. Presented with tachycardia c/w SVT with known LBBB. May be a candidate for ICD/ BIV-ICD down the road. Assessment and Plan Discussion w patient/family: The assessment and plan as outlined above was discussed with the patient and/or family members who expressed understanding and agreement. All questions were answered. Thank you for involving us in the care of your patient. Please call with any questions. History of Present Illness History of present illness: Mr. Clark is a 72 year old male All Systems Review: The remainder of the systems were reviewed and are negative Physical Examination Vital Signs, Last 4 Hours Temp Pulse Resp BP Pulse Ox 03/14/18 13:09 20 95 03/14/18 11:32 97.9 F 74 18 95/55 94 Results 03/13/18 03:58 03/13/18 03:58
--- NOTE | 2018-03-13 12:30 | Internal Med Progress Note ---
Hospitalist Progress Note - Encounter Date of Encounter: 03/13/18 Time of Encounter: 09:46 - Subjective Interval History: Patient seen and examined this morning. Denies any chest pain. Denies shortness of breath. Denies fever, chills, n/V. No palpitation, abdominal pain , bowel or urinary complains. - Exam Vitals: Temp Pulse Resp BP Pulse Ox 98.2 F 74 16 112/70 97 03/13/18 11:39 03/13/18 11:39 03/13/18 11:39 03/13/18 11:39 03/13/18 11:39 Exam: Patient in no acute distress, resting comfortably in bed HEENT: NC/AT, PERRL Neck: Supple, No JVD Lungs: CTA b/l Heart: S1S2, RRR, no murmurs Abd: Soft, NT, BS present Ext: No pedal edema Neuro: No focal deficit. - Assessment and Plan (1) Chest pain Current Visit: Yes Status: Acute (2) Diabetes mellitus Current Visit: No Status: Chronic (3) Hypertension Current Visit: No Status: Chronic (4) Wide-complex tachycardia Current Visit: Yes Status: Acute (5) Systolic CHF Current Visit: Yes Status: Acute (6) Depression Current Visit: Yes Status: Suspected - Summary of Assessment and Plan Summary of Assessment and Plan: Chest pain - Chest pain free now. With elevated troponin. On heparin drip. - recent LHC about one month ago, shows severe stenosis. Was recommended medical treatment. - Per cardiology, will continue heparin drip for 48 hours and continue medical treatment. - TTE with EF 30-35%. Severe global left ventricular systolic dysfunction, mild LVH, mild dilated left atrium. - Medical management Wide-complex tachycardia - likely SVT with aberrancy. Cannot rule out VT. - Follow EP/cardiology further recommendations for ICD vs vest placement given low EF. Systolic CHF with CAD - TTE as above - c/w home cavedilol, lisinopril, HCTZ, imdur, statin Diabetes mellitus - hold home metformin - SSI with accuchecks. HTN - BP controlled. c/w home meds Depression - 1 year ago. Denies suicidal ideation. - TSH within normal limit. - outpatient psych evaluation. DVT Prophylaxis: - heparin sc when drip stopped. - Time Spent with Patient Total time spent is greater than 50% in coordination of care (as documented) at patient's floor/unit and/or counseling patient: Internal Medicine: Result - Labs CBC & Chem 7: 03/13/18 03:58 03/13/18 03:58 Labs: Short CBC 03/13/18 Range/Units 03:58 WBC 7.8 (4.3-11.1) K/mcL Hgb 10.5 L (12.9-16.9) g/dL Hct 32.7 L (37.5-50.1) % Plt Count 168 (140-400) K/mcL Neutrophils # 4.8 (1.6-8.9) K/mcL BMP 03/13/18 03:58 Sodium 142 Potassium 3.8 Chloride 106 Carbon Dioxide 28 BUN 17 Creatinine 1.09 Glucose 133 H Calcium 9.0 - ABG Interpretation ABG results: PT/INR, D-dimer PT 12.5 Seconds (9.4-12.1) H 03/10/18 23:55 - Impressions Impressions Echocardiogram Limited Views 03/12/18 08:58 Impressions: Limited Echo. LVEF 30-35 %. Severe global left ventricular systolic dysfunction. Upper normal LV chamber size with mild LVH. Normal right ventricular structure and function. Mildly dilated left atrium. Left Ventricular Wall Motion: Rest Echo Findings The apex, apical inferior, mid inferior, basal inferior, apical anterior, mid anterior, basal anterior, apical septal, mid inferior septal, basal inferior septal, apical lateral, mid anterior lateral, basal anterior lateral, mid anterior septal, mid inferior lateral, basal anterior septal and basal inferior lateral day were hypokinetic. Findings: ECG Findings * Sinus rhythm with BBB. * Sinus rhythm with PVCs. Left Ventricle * LVEF 30-35%. * Upper normal LV chamber size with mild LVH. * Severe global left ventricular systolic dysfunction. * Atypical septal motion consistent with bundle branch block. Right Ventricle * Normal right ventricular structure and function. Left Atrium * Mildly dilated left atrium. Right Atrium * Normal right atrial size. Study Quality * Technically sub-optimal due to clinical status. Consult Discharge Plan - Plan Referrals: Angelika Montalvo CNP [Primary Care Provider] - 03/20/18 9:00 am Sharon Mendoza DO [Partnered Physician] - (office to call patient at home with follow up appointment) (1) Chest pain Qualifiers: Chest pain type: unspecified Qualified Code(s): R07.9 - Chest pain, unspecified (2) Diabetes mellitus Qualifiers: Diabetes mellitus type: type 2 Diabetes mellitus support specialist insulin use: unspecified support specialist insulin use status Diabetes mellitus complication status: without complication Qualified Code(s): E11.9 - Type 2 diabetes mellitus without complications (3) Hypertension Qualifiers: Hypertension type: essential hypertension Qualified Code(s): I10 - Essential (primary) hypertension (5) Systolic CHF Qualifiers: Heart failure chronicity: chronic Qualified Code(s): I50.22 - Chronic systolic (congestive) heart failure (6) Depression Qualifiers: Depression Type: reactive depression Qualified Code(s): F32.9 - Major depressive disorder, single episode, unspecified
--- NOTE | 2018-03-13 13:22 | Cardiology Progress Note ---
Date of Encounter: 03/13/18 Time of Encounter: 09:45 Assessment and Plan (1) Elevated troponin Current Visit: Yes Status: Acute Per cardiology: -Elevated troponin probably represents demand ischemia in secondary of known severe CAD. Troponin has now downtrended. -Recent [facility] 01/2018 with severe CAD, no intervention. Medical management was recommended. -Patient denies chest pain. -ECG with no acute ischemic ECG changes. -On heparin drip, asa, plavix, statin, BB. -TTE with LVEF 30-35%, global hypokineiss. -Last TTE 09/2017 with LVEF 35-40%, global hypokinesis. -Recommend medical management. Recommend continuing heparin drip 24-48 hours as well as asa/plavix. Has been on heparin >48hours, will stop. -Again, recent [facility] with severe CAD, medical management was recommended. (2) Wide-complex tachycardia Current Visit: Yes Status: Acute Per Cardiology: -Presented with a wide-complex tachycardia which converted to normal sinus rhythm with a bolus of amiodarone, hemodynamically stable throughout this event. -EKGs reviewed with Dr. Edinson Hopkins. Findings favoring SVT with aberrancy but given axis deviation, known severe CAD and systolic dysfunction EF 30-35%, VT cannot be ruled out. -Hx of VT and VF periprocedurally during a [facility] in 2014, placed on amiodarone at that time, stopped outpatient due to concern for neuropathy. -TTE 09/2017 EF 35-40%. TTE repeated shows EF further reduced to 30-35%. -EP consult pending. -If no ICD inpatient, will recommend life vest prior to discharge. (3) Coronary artery disease Current Visit: No Status: Chronic Per cardiology: -History of remote bypass having recently undergone left heart catheterization demonstrating severe [place] CAD with 1/4 patent bypass grafts (RODRÍGUEZ). Intervention was not performed. Medical management recommended. Continue asa, plavix, statin. Qualifiers: Coronary Disease-Associated Artery/Lesion type: bypass graft [place] vs. transplanted heart: [place] heart Associated angina: without angina Qualified Code(s): I25.810 - Atherosclerosis of coronary artery bypass graft(s) without angina pectoris (4) Systolic dysfunction, left ventricle Current Visit: Yes Status: Chronic Per EP: -LV systolic function 30% on [facility] January 30. -Previously documented at 35-40% on TTE 09/2017. -Repeat TTE EF 30-35%. -Patient otherwise appears fairly compensated. Recommend continuing medical therapy - BB, ACEI/HCTZ. Unable to uptitrate due to low normal BP. Discussion w patient/family: The assessment and plan as outlined above was discussed with the patient who expressed understanding and agreement. All questions were answered. Thank you for involving us in the care of your patient. Please call with any questions. Discussed and reviewed with . Subjective Principal diagnosis: chest pain Interval history: Patient resting in bed comfortably on exam. Denies chest pain. Denies worsening shortness of breath. Objective Vital Signs, Last 4 Hours Temp Pulse Resp BP Pulse Ox 03/13/18 11:39 98.2 F 74 16 112/70 97 General: Conversant, No Apparent Distress HEENT: Atraumatic, Normocephaly, Mucus Membranes Moist Neck: No JVD, Normal carotid pulses Cardiac: Reg Rate and Rhythm, Normal S1 and S2, No Murmur Lungs: Normal Breath Sounds, No Wheeze, Rales, Rhonchi Neuro: Alert and responsive, No focal deficits noted Abdomen: Soft, Non-Tender Skin: No rashes noted on visualized skin Musculoskeletal: No Chest Wall Tenderness Extremities: No Clubbing, No Cyanosis, No Edema, Normal Pulses Results 03/13/18 03:58 03/13/18 03:58 Lab Results Impressions Echocardiogram Limited Views 03/12/18 08:58 Impressions: Limited Echo. LVEF 30-35 %. Severe global left ventricular systolic dysfunction. Upper normal LV chamber size with mild LVH. Normal right ventricular structure and function. Mildly dilated left atrium. Left Ventricular Wall Motion: Rest Echo Findings The apex, apical inferior, mid inferior, basal inferior, apical anterior, mid anterior, basal anterior, apical septal, mid inferior septal, basal inferior septal, apical lateral, mid anterior lateral, basal anterior lateral, mid anterior septal, mid inferior lateral, basal anterior septal and basal inferior lateral day were hypokinetic. Findings: ECG Findings * Sinus rhythm with BBB. * Sinus rhythm with PVCs. Left Ventricle * LVEF 30-35%. * Upper normal LV chamber size with mild LVH. * Severe global left ventricular systolic dysfunction. * Atypical septal motion consistent with bundle branch block. Right Ventricle * Normal right ventricular structure and function. Left Atrium * Mildly dilated left atrium. Right Atrium * Normal right atrial size. Study Quality * Technically sub-optimal due to clinical status. Active Medications Aspirin (Aspirin) 81 mg PO DAILY [facility] Stop: 09/10/18 09:01 Last Admin: 03/13/18 08:45 Dose: 81 mg Carvedilol (Coreg) 12.5 mg PO BID [facility]; Protocol Stop: 09/09/18 21:01 Last Admin: 03/13/18 08:43 Dose: 12.5 mg Clopidogrel Bisulfate (Plavix) 75 mg PO DAILY [facility] Stop: 09/10/18 09:01 Last Admin: 03/13/18 08:44 Dose: 75 mg Dextrose/Water (Dextrose 50% (Syg)) 25 ml IVP AD PRN PRN Reason: Hypoglycemia Stop: 09/09/18 19:59 Gabapentin (Neurontin) 800 mg PO TID [facility] Stop: 09/09/18 21:01 Last Admin: 03/13/18 08:47 Dose: 800 mg Glucagon (Glucagen) 1 mg IM ONCE PRN PRN Reason: Hypoglycemia Stop: 09/09/18 19:59 Glucose (Gluctose) 15 gm PO ONCE PRN PRN Reason: Hypoglycemia Stop: 09/09/18 19:59 Glucose (Gluctose) 30 gm PO ONCE PRN PRN Reason: Hypoglycemia Stop: 09/09/18 19:59 Lisinopril/HCTZ (Prinzide 10-12.5) 1 each PO DAILY [facility] Stop: 09/10/18 09:01 Last Admin: 03/13/18 08:47 Dose: 1 each Dextrose (Dextrose 5%) 1,000 mls @ 100 mls/hr IVC .Q10H PRN PRN Reason: HYPOGLYCEMIA Stop: 09/09/18 19:59 Insulin Human Lispro (Humalog) 0 units SQ HS [facility]; Protocol Stop: 09/09/18 21:01 Last Admin: 03/12/18 19:58 Dose: Not Given Insulin Human Lispro (Humalog) 0 units SQ TIDAC [facility]; Protocol Stop: 09/10/18 07:31 Last Admin: 03/13/18 11:55 Dose: Not Given Isosorbide Mononitrate (Imdur) 30 mg PO DAILY [facility] Stop: 09/10/18 09:01 Last Admin: 03/13/18 08:46 Dose: 30 mg Loperamide HCl (Imodium) 2 mg PO DAILY [facility] Stop: 09/10/18 09:01 Last Admin: 03/13/18 08:45 Dose: 2 mg Multivitamins/Calcium (Thera M Plus) 1 tab PO DAILY [facility] Stop: 09/10/18 09:01 Last Admin: 03/13/18 08:46 Dose: 1 tab Naloxone HCl (Narcan) 0.4 mg IVP Q2MIN PRN PRN Reason: SEE COMMENTS Stop: 09/09/18 19:41 Nitroglycerin (Nitroglycerin) 0.4 mg SL Q5MIN PRN PRN Reason: Chest Pain Stop: 09/10/18 00:10 Omeprazole (Prilosec) 40 mg PO DAILY@0730 [facility] Stop: 09/10/18 07:31 Last Admin: 03/13/18 08:44 Dose: 40 mg Pharmacy Profile Note (Patient Taking Own Medication) 0 each PO DAILY [facility] Stop: 09/10/18 09:01 Last Admin: 03/13/18 08:47 Dose: Not Given Promethazine HCl (Phenergan) 25 mg PO DAILY PRN PRN Reason: Nausea Stop: 09/09/18 19:38 Rosuvastatin Calcium (Crestor) 40 mg PO DAILY [facility] Stop: 09/10/18 09:01 Last Admin: 03/13/18 08:47 Dose: 40 mg Tramadol HCl (Ultram) 50 mg PO TID PRN PRN Reason: Pain Stop: 09/09/18 19:38 Last Admin: 03/13/18 08:46 Dose: 50 mg Laboratory Tests 03/13/18 03/13/18 03:58 03:58 Hgb 10.5 L Creatinine 1.09 - Imaging and Cardiology Chest Xray: report reviewed Echo: report reviewed Cardiac cath: report reviewed - EKG Interpretation EKG results cardiology: other (Telemetry reviewed with average HR previous 12 hours noted to be 75, SR. PVCs, couplets noted.) Consult Discharge Plan - Plan Referrals: Angelika Montalvo CNP [Primary Care Provider] - 03/20/18 9:00 am Sharon Mendoza DO [Partnered Physician] - (office to call patient at home with follow up appointment)
--- NOTE | 2018-03-13 19:12 | Electrocardiograph Report ---
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
--- NOTE | 2018-03-13 19:12 | Electrocardiograph Report ---
[address] [place], [place] [address] Test Date: 2018-03-10 Pat Name: Navid Clark Department: [id number] Room: [facility] Gender: M Chief Minister: : 1945 Requested By: Shaq Maxwell Order Number: [id number] Reading MD: Sharon Mendoza Measurements Intervals [place] Rate: 178 P: [place]: QRS: 239 QRSD: 136 T: 56 QT: 307 QTc: 529 Interpretive Statements Wide-QRS tachycardia Nonspecific intraventricular conduction delay Electronically Signed On 03-13-2018 19:10:26 EST by Sharon Mendoza
--- NOTE | 2018-03-13 19:16 | Electrocardiograph Report ---
[place] [address] Test Date: 2018-03-10 Pat Name: Navid Clark Department: 110 Room: 05 Gender: M Pulverizer: : 1945 Requested By: Kelsey Easley Order Number: [id number] Reading MD: Sharon Mendoza Measurements Intervals [place] Rate: 77 P: 12 NV: 189 QRS: 265 QRSD: 158 T: 44 QT: 444 QTc: 476 Interpretive Statements SINUS RHYTHM WITH OCCASIONAL VENTRICULAR PREMATURE COMPLEXES INTRAVENTRICULAR CONDUCTION DELAY Electronically Signed On 03-13-2018 19:14:52 EST by Sharon Mendoza
--- NOTE | 2018-03-13 19:55 | Electrocardiograph Report ---
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
--- NOTE | 2018-03-14 08:54 | Discharge Summary ---
- NOTES TO OUTPATIENT PROVIDER Notes to Outpatient Provider: Follow up with cardiology. Date of Encounter: 03/14/18 Time of Encounter: 08:59 - Discharge Diagnosis (1) Chest pain Priority: Primary Status: Acute Qualifiers: Chest pain type: unspecified Qualified Code(s): R07.9 - Chest pain, unspecified (2) Diabetes mellitus Priority: Secondary Status: Chronic Qualifiers: Diabetes mellitus type: type 2 Diabetes mellitus supervisor long goods insulin use: unspecified prison insulin use status Diabetes mellitus complication status: without complication Qualified Code(s): E11.9 - Type 2 diabetes mellitus without complications (3) Hypertension Priority: Secondary Status: Chronic Qualifiers: Hypertension type: essential hypertension Qualified Code(s): I10 - Essential (primary) hypertension (4) Wide-complex tachycardia Priority: Primary Status: Acute (5) Systolic CHF Priority: Secondary Status: Acute Qualifiers: Heart failure chronicity: chronic Qualified Code(s): I50.22 - Chronic systolic (congestive) heart failure (6) Depression Priority: Secondary Status: Suspected Qualifiers: Depression Type: reactive depression Qualified Code(s): F32.9 - Major depressive disorder, single episode, unspecified (7) Elevated troponin Priority: Primary Status: Acute Hospital course: Mr. Clark is a 72 year old male past medical history of severe CAD status post CABG, diabetes, hypertension, hyperlipidemia who came in with chest pain. Was found to have wide complex tachycardia and elevated troponin in the ER. Cardiology was consulted. Patient has severe CAD with recent head CT on 01/2018 without any intervention and was managed medically. Last MELVA in September with EF of 35-40. Given wide complex tachycardia suggestive of SVT however VT could not be ruled out EP consultation was obtained for primary prevention ICD placement. Repeat echocardiogram was performed with EF of 30-35 severe left diastolic dysfunction. Given patient's EF has not been less than 35 for more than 90 days no ICD placement was performed in patient was arranged to have LifeVest placed. Patient would be discharged today after placement of LifeVest. Patient on appropriate home medication. Patient would continue home medication and follow up with cardiology. Discharge discussed with: patient, nurse - Time Spent with Patient Total time spent providing and/or coordinating discharge services: Greater than 30 minutes (35) - Discharge Medications Home Medications: Multivitamin/Iron/Folic Acid [Centrum Complete Multivit Tab] 1 tab PO DAILY 12/10/14 [History] Clopidogrel [Plavix] 75 mg PO DAILY 02/14/17 [History] Carvedilol [Coreg] 12.5 mg PO BID 04/11/17 [History] metFORMIN [Glucophage] 1,000 mg PO BIDWM 04/11/17 [History] Aspirin 81 mg PO DAILY 06/26/17 [History] Nitroglycerin 0.4 mg PO Q5MIN PRN 10/19/17 [History] Omeprazole [PriLOSEC] 40 mg PO DAILY 10/19/17 [History] Promethazine [Phenergan] 25 mg PO DAILY PRN 10/19/17 [History] Quinapril/Hydrochlorothiazide [Quinapril-Hctz 10-12.5 mg Tab] 1 tab PO DAILY 10/19/17 [History] Rosuvastatin Calcium 40 mg PO DAILY 10/19/17 [History] Isosorbide MONOnitrate (24 HR) [Imdur] 30 mg PO DAILY 01/30/18 [History] Tramadol HCl [Ultram] 50 mg PO TID PRN 01/30/18 [History] Biotin 1 mg PO DAILY 03/10/18 [History] Gabapentin [Neurontin] 800 mg PO TID 03/10/18 [History] Loperamide HCl [Imodium A-D] 2 mg PO DAILY PRN 03/10/18 [History] Allergies/Adverse Reactions: Allergy/AdvReac Type Severity Reaction Status Date / Time No Known Allergies Allergy Verified 10/19/17 14:26 Date of admission: 03/10/18 19:40 Primary care physician: Angelika Montalvo CNP Consults: 03/10/18 16:45 Consult to Cardiology [CONS] Stat Comment: Consulting Provider: Cardiology [place] Reason for Consult: vtach Call Completed: Yes 03/13/18 14:35 Consult to Electrophysiology (EP) [CONS] Routine Consulting Provider: Electrophysiology [place] Reason for Consult: Need for ICD? Call Completed: Yes Discharging clinician: Angelica Holloway - Constitutional Vitals: Temp Pulse Resp BP Pulse Ox 97.9 F 59 18 100/67 94 03/14/18 07:41 03/14/18 07:41 03/14/18 07:41 03/14/18 07:41 03/14/18 07:41 General appearance: Present: A&O X 3, no acute distress Exam: Patient in no acute distress, resting comfortably in bed HEENT: NC/AT, PERRL Neck: Supple, No JVD Lungs: CTA b/l Heart: S1S2, RRR, no murmurs Abd: Soft, NT, BS present Ext: No pedal edema Neuro: No focal deficit. - Patient Status Disposition: Home, Self-Care Condition: Fair - Discharge Instructions Follow Up With: Angelika Montalvo CNP [Primary Care Provider] - 03/20/18 9:00 am Sharon Mendoza DO [Partnered Physician] - (office to call patient at home with follow up appointment) - Diet and Activity Activity: increase activity as tolerated Diet: low fat, low cholesterol
[2018-03-14] MEDS: Gabapentin 400 MG CAPSULE PO SCH ×2 (09:20→16:29)
[2018-03-14] MEDS: Multivit/Ca/Min/Fe/FA 1 TAB TABLET PO SCH (09:20)
[2018-03-14] MEDS: Aspirin 81 MG TAB.CHEW PO SCH (09:21)
[2018-03-14] MEDS: Isosorbide MONOnitrate (24 HR) 60 MG TAB.ER.24H PO SCH (09:21)
[2018-03-14] MEDS: Insulin LISPRO 300 UNITS/3 ML VIAL SQ SCH ×3 (09:21→16:31)
[2018-03-14] MEDS: (Biotin [Biotin] 1 MG) PO SCH (09:22)
--- NOTE | 2018-03-14 14:35 | Event Note ---
Date of Encounter: 03/14/18 Time of Encounter: 14:33 - Cardiology Event Note Per reports, life vest needed prior authorization. Message sent to cardiology nurse in office. Life vest has now been approved and Dav has been contacted to place life vest for patient. Per last cardiology note, will continue to monitor in outpatient setting. Follow up set.
[2018-03-14 16:35] VITALS: BP 101/65
== END 2018-03-14 19:10 | disposition home or self-care (01) | DRG 309 ==
LOC: EMEROOARM 16:17 → 2NNU 16:17 → SUATTDRO 19:40 → 2NNU 20:48
PROVIDERS: ADMIT Internal Medicine; ATTEND Internal Medicine

== ENCOUNTER 2018-03-16 21:34 | Observation (INO) ==
--- NOTE | 2018-03-16 21:41 | Emergency Department Note ---
Disposition Clinical Impression: Atrial fibrillation with RVR, Defibrillator discharge Atrial fibrillation Qualifiers: Atrial fibrillation type: unspecified Qualified Code(s): I48.91 - Unspecified atrial fibrillation Disposition: Admitted As Inpatient Condition: Good Referrals: Angelika Montalvo CNP [Primary Care Provider] - General Adult HPI - General Chief complaint: ED Arrhythmia/Palpitations Stated complaint: Palpitations Time Seen by Provider: 03/16/18 21:41 Nursing Notes Reviewed: Yes Vital Signs Reviewed: Yes - History of Present Illness HPI Narrative: 72-year-old male presenting with complaint of arrhythmia and his LifeVest defibrillating him. He states he was discharged on Monday and has been using LifeVest since that time. He was admitted for wide complex tachycardia. EF 30- 35%. He states that today he was at rest and experienced 3 shocks from his LifeVest. He states he does feel that he is in A. fib now. He notes mild tenderness chest but denies any fever, chills, shortness of breath, nausea, vomiting, diarrhea, hematuria, dysuria. - Related Data Home Medications Medication Instructions Recorded Confirmed Multivitamin/Iron/Folic Acid 1 tab PO DAILY 12/10/14 03/16/18 [Centrum Complete Multivit Tab] Clopidogrel [Plavix] 75 mg PO DAILY 02/14/17 03/16/18 Carvedilol [Coreg] 12.5 mg PO BID 04/11/17 03/16/18 metFORMIN [Glucophage] 1,000 mg PO BIDWM 04/11/17 03/16/18 Aspirin 81 mg PO DAILY 06/26/17 03/16/18 Nitroglycerin 0.4 mg PO Q5MIN PRN 10/19/17 03/16/18 Omeprazole [PriLOSEC] 40 mg PO DAILY 10/19/17 03/16/18 Promethazine [Phenergan] 25 mg PO DAILY PRN 10/19/17 03/16/18 Quinapril/Hydrochlorothiazide 1 tab PO DAILY 10/19/17 03/16/18 [Quinapril-Hctz 10-12.5 mg Tab] Rosuvastatin Calcium 40 mg PO DAILY 10/19/17 03/16/18 Isosorbide MONOnitrate (24 HR) 30 mg PO DAILY 01/30/18 03/16/18 [Imdur] Tramadol HCl [Ultram] 50 mg PO TID PRN 01/30/18 03/16/18 Biotin 1 mg PO DAILY 03/10/18 03/16/18 Gabapentin [Neurontin] 800 mg PO TID 03/10/18 03/16/18 Loperamide HCl [Imodium A-D] 2 mg PO DAILY PRN 03/10/18 03/16/18 Allergies Allergy/AdvReac Type Severity Reaction Status Date / Time No Known Allergies Allergy Verified 10/19/17 14:26 Review of Systems: Pertinent positives and negatives reviewed in history of present illness. All other systems reviewed and are negative or normal. All systems ED: reviewed and negative except as stated. Review of Systems: As Per HPI Past Medical History - Past Medical History Medical history: Reports: coronary artery disease, diabetes, GERD, hyperlipidemia, hypertension, other Surgical history: Reports: angioplasty/stent, cholecystectomy, coronary bypass (CABG), other Psychiatric history: Reports: no psych history - Social History Smoking Status: Never smoker Smokeless Tobacco Status: No Alcohol use: Reports: none Drug use: Reports: none Physical Exam - General Limitations: no limitations General appearance: alert, in no apparent distress - Head Head exam: atraumatic, normocephalic - Eye Eye exam: Present: normal appearance, PERRL - ENT ENT exam: normal exam, normal oropharynx - Neck Neck exam: Present: normal inspection, full ROM, trachea midline. Absent: tenderness - Chest Chest inspection: Present: normal inspection, symmetric chest wall rise. Absent: tenderness - Respiratory Respiratory exam: Present: normal lung sounds bilaterally. Absent: respiratory distress, wheezes, stridor, accessory muscle use - Cardiovascular Cardiovascular exam: Present: tachycardia, irregular rhythm (irregularly irregular), normal heart sounds - Abdominal Exam Abdominal exam: Present: soft, Non-Tender. Absent: distention, guarding, rebound, rigidity - Extremities Exam Extremities exam: Present: normal inspection. Absent: pedal edema - Neurological Exam Neurological exam: Present: alert, oriented X3 - Psychiatric Psychiatric exam: Present: normal affect, normal mood - Skin Skin exam: Present: warm, dry, intact Course Vital Signs Temperature 98.5 F 03/16/18 21:41 Pulse Rate 150 03/16/18 21:41 Respiratory Rate 20 03/16/18 21:41 Blood Pressure 108/87 03/16/18 21:41 O2 Sat by Pulse Oximetry 95 03/16/18 21:41 Temperature 98.5 F 03/16/18 21:41 Pulse Rate 91 03/16/18 22:40 Respiratory Rate 18 03/16/18 22:40 Blood Pressure 112/64 03/16/18 22:40 O2 Sat by Pulse Oximetry 93 03/16/18 22:40 Oxygen Delivery Oxygen Delivery Room Air Medical Decision Making - MDM Narrative Medical decision making narrative: 72-year-old male presenting in A. fib with RVR. Heart rate elevated in the 160s. Did have multiple firings by his LifeVest, likely resultant of his AFib with RVR rather than a wide complex tachycardia. She given an initial 1 L fluid bolus, IV Cardizem 20 mg as well as 60 mg by mouth. His HR improved to 80s with maintenance of his blood pressure. Labwork including CBC, BMP, and troponin ordered. Slight elevation in troponin to 0.09 which can be explained given his defibrillation. Otherwise creatinine clearance 44 therefore will start the patie nt on lovenox. Discussed case with hospitalist landscape contractor who will admit the patient. Patient agrees with and understands course of treatment plan including plan for admission. All questions answered. - Medical Records Medical records reviewed: Yes I reviewed the patient's medical records. - Lab Data Lab results reviewed: Yes I reviewed the patient's lab results. Result diagrams: 03/16/18 21:54 03/16/18 21:54 Lab Results 03/16/18 03/16/18 03/16/18 Range/Units 21:54 21:54 21:54 WBC 7.1 (4.3-11.1) K/mcL RBC 4.48 (4.19-5.50) M/mcL Hgb 11.6 L (12.9-16.9) g/dL Hct 36.5 L (37.5-50.1) % MCV 81.5 L (83.0-100.0) fL MCH 25.9 L (28.0-33.3) pg MCHC 31.8 (31.6-35.5) g/dL RDW 14.4 (11.5-14.5) % Plt Count 197 (140-400) K/mcL MPV 11.2 (9.4-12.4) fL Immature Gran % 0.1 (0-4) % Seg Neutrophils % 64.7 % Lymphocytes % 21.1 % Monocytes % 10.5 % Eosinophils % 3.3 % Basophils % 0.3 % Neutrophils # 4.6 (1.6-8.9) K/mcL Lymphocytes # 1.5 (0.6-4.6) K/mcL Monocytes # 0.7 (0.0-1.3) K/mcL Eosinophils # 0.2 (0.0-0.6) K/mcL Basophils # 0.0 (0.0-0.2) K/mcL PT 11.5 (9.4-12.1) Seconds INR 1.0 APTT 30.1 D (26.0-36.0) Seconds Sodium 139 (136-145) mEq/L Potassium 4.0 (3.5-5.1) mEq/L Chloride 103 (98-107) mEq/L Carbon Dioxide 27 (23-29) mEq/L BUN 27 H (8-23) mg/dL Creatinine 1.41 H (0.70-1.30) mg/dL Est GFR ( Amer) > 60 (> 60) Est GFR (Non-Af Amer) 50 L (> 60) BUN/Creatinine Ratio 19 (6-26) Glucose 202 H (70-105) mg/dL Calculated Osmolality 299 (280-300) Calcium 9.5 (8.6-10.3) mg/dL Troponin I 0.09 H* (< 0.04) ng/mL - Radiology Data Radiology results reviewed: Yes I reviewed the patient's radiology results. Chest X-Ray 03/16/18 21:59 IMPRESSION: 1. Low lung volumes with bibasilar atelectasis. 2. Stable cardiomegaly without overt failure. D/ / Andreas Go MD / Andreas Go MD Interpreting Provider: Andreas Go MD - EKG Data EKG #1 EKG attestation: Yes I reviewed and interpreted this EKG. EKG results narrative: Atrial fibrillation with RVR heart rate of 155, QRS 144, QT 361, QTC 580. When compared with 03/11/18, AFib is new. Attestation Statement - Attestation Attestation: I examined this patient and my medical decision-making was reviewed with the Resident Physician. I agree with the documented findings, disposition and treatment plan as described except to the extent set forth below. A. fib with rapid ventricular response. Patient was accidentally defibrillated by his life S which I feel inappropriately defibrillated his atrial fibrillation which is rapid in nature. He ultimately now has no complaints but has findings of a heart rate in the 160s with a variable rate. He underwent chemical rate control with diltiazem and will be given diltiazem by mouth for subsequent maintenance. He will be admitted to the hospital for further management and cardiac consultation. Additionally he will be given Lovenox. Creatinine clearance is 44
[2018-03-16] MEDS ORDERED: 0.9 % Sodium Chloride 1,000 ML IVC ONE (21:48)
[2018-03-16] MEDS ORDERED: dilTIAZem HCl 60 MG TABLET PO STA (21:49)
[2018-03-16 22:13] LABS: Basophils % 0.3 %; Eosinophils # 0.2 K/mcL (0.0-0.6); Eosinophils % 3.3 %; Hematocrit 36.5 % (37.5-50.1); Hemoglobin 11.6 g/dL (12.9-16.9); Immature Granulocytes % 0.1 % (0-4); Lymphocytes # 1.5 K/mcL (0.6-4.6); Lymphocytes % 21.1 %; Mean Corpuscular HGB Conc 31.8 g/dL (31.6-35.5); Mean Corpuscular Hemoglobin 25.9 pg (28.0-33.3); Mean Corpuscular Volume 81.5 fL (83.0-100.0); Mean Platelet Volume 11.2 fL (9.4-12.4); Monocytes # 0.7 K/mcL (0.0-1.3); Monocytes % 10.5 %; Neutrophils # 4.6 K/mcL (1.6-8.9); Platelet Count 197 K/mcL (140-400); Red Blood Count 4.48 M/mcL (4.19-5.50); Red Cell Distribution Width 14.4 % (11.5-14.5); Segmented Neutrophils % 64.7 %
[2018-03-16 22:19] LABS: Prothrombin Time 11.5 Seconds (9.4-12.1)
[2018-03-16 22:22] LABS: Activated Partial Thrombo Time 30.1 Seconds (26.0-36.0)
[2018-03-16 22:35] LABS: BUN/Creatinine Ratio 19 (6-26); Blood Urea Nitrogen 27 mg/dL (8-23); Calcium 9.5 mg/dL (8.6-10.3); Carbon Dioxide 27 mEq/L (23-29); Chloride 103 mEq/L (98-107); Glucose 202 mg/dL (70-105); Osmolality,Calculated 299 (280-300); Sodium 139 mEq/L (136-145); eGFR For Non-African Americans 50 (> 60)
[2018-03-16 22:37] LABS: Troponin I 0.09 ng/mL (< 0.04)
--- NOTE | 2018-03-17 00:08 | Internal Med History&Physical ---
<Irving Salamanca - Last Filed: 03/17/18 03:00> Date of Encounter: 03/17/18 Time of Encounter: 00:06 Internal Medicine - H&P: HPI Chief complaint: Palpitations History of present illness: Navid Clark is a 72 year old male with PMH of CAD, DM, GERD, HLD, HTN, status post CABG who presented to [facility] ED on 03/16/18 with a chief complaint of arrhythmia and his LifeVest defibrillating him. Patient was recently discharged on Monday, and has been using his LifeVest since that time. LifeVest was given due to wide-complex tachycardia from his previous admission. At that time, he was admitted for wide-complex tachycardia. TTE demonstrated worsened EF of 30-35%. He received a total of 3 shocks today from his LifeVest. Upon arrival to the emergency department, patients vital signs were as follows: Temp 98.5, HR 150, respiratory rate 20, blood pressure 108/87, O2 sat 95. CXR demonstrated low lung volumes with bibasilar atelectasis and stable cardiomegaly without overt failure. Laboratory analysis demonstrated a low hemoglobin of 11.6, creatinine 1.41, and an elevated troponin at 0.09. Patient was given a 1 L bolus of normal saline, 20 mg IV Cardizem, 60 mg by mouth Cardizem. Patients initial heart rate was in the 160s, improved to the 80s. Patient started on Lovenox. Patient seen and examined at bedside; he states that he is feeling better when he first arrived. Patient initially felt some chest discomfort and palpitations; these of both resolved. He denies having any fever, chills, chest pain, nausea, vomiting, diaphoresis, shortness of breath, headache, or visual disturbances. He has no complaints at this time. Past Med Surg Social Fam HX - Past Medical History Medical history: coronary artery disease, diabetes, GERD, hyperlipidemia, hypertension, other Additional medical history: colon polyps, gastritis Psychiatric history: no psych history - Past Surgical History Surgical History: angioplasty/stent, cholecystectomy, coronary bypass (CABG), other Additional surgical history: amputation right hand, colonoscopy, egd - Social History Smoking Status: Never smoker Smokeless Tobacco Status: No Alcohol use: none Drug use: none - Family History Father Living Status: Hx Family Cardiac Disorders: Yes (CAD) Hx Family Endocrine Disorder: Yes (Diabetes Mellitus) Mother Living Status: Hx Family Cardiac Disorders: Yes (CAD) Sister Living Status: Still Living Hx Family Cancer: Yes (Breast cancer) Hx Family Neuromuscular Disorders: Yes (Scoliosis) Internal Medicine - H&P: Meds Multivitamin/Iron/Folic Acid [Centrum Complete Multivit Tab] 1 tab PO DAILY 12/10/14 [History] Clopidogrel [Plavix] 75 mg PO DAILY 02/14/17 [History] Carvedilol [Coreg] 12.5 mg PO BID 04/11/17 [History] metFORMIN [Glucophage] 1,000 mg PO BIDWM 04/11/17 [History] Aspirin 81 mg PO DAILY 06/26/17 [History] Nitroglycerin 0.4 mg PO Q5MIN PRN 10/19/17 [History] Omeprazole [PriLOSEC] 40 mg PO DAILY 10/19/17 [History] Promethazine [Phenergan] 25 mg PO DAILY PRN 10/19/17 [History] Quinapril/Hydrochlorothiazide [Quinapril-Hctz 10-12.5 mg Tab] 1 tab PO DAILY 10/19/17 [History] Rosuvastatin Calcium 40 mg PO DAILY 10/19/17 [History] Isosorbide MONOnitrate (24 HR) [Imdur] 30 mg PO DAILY 01/30/18 [History] Tramadol HCl [Ultram] 50 mg PO TID PRN 01/30/18 [History] Biotin 1 mg PO DAILY 03/10/18 [History] Gabapentin [Neurontin] 800 mg PO TID 03/10/18 [History] Loperamide HCl [Imodium A-D] 2 mg PO DAILY PRN 03/10/18 [History] Allergy/AdvReac Type Severity Reaction Status Date / Time No Known Allergies Allergy Verified 10/19/17 14:26 All Systems PM: A 10-system review of systems was performed and is negative for pertinent findings except as documented above in the HPI. - Constitutional Constitutional: as per HPI, no chills, no fever(s), no night sweats - EENT Eyes: as per HPI, no change in vision, no discharge, no pain, no photophobia Ears: as per HPI, no ear discharge, no ear pain, no tinnitus Nose, mouth and throat: as per HPI, no dysphagia, no nasal discharge, no neck pain, no sore throat - Cardiovascular Cardiovascular ROS IM: as per HPI, irregular heart rhythm, no chest pain, no diaphoresis, no dyspnea, no lightheadedness, no palpitations, no syncope - Respiratory Respiratory: as per HPI, no cough, no dyspnea, no wheezing, no excessive phlegm production - Gastrointestinal Gastrointestinal: as per HPI, no abdominal pain, no diarrhea, no hematemesis, no hematochezia, no melena, no nausea, no vomiting - Musculoskeletal Musculoskeletal ROS IM: as per HPI, no numbness, no tingling - Integumentary Integumentary IM: as per HPI, no rash, no unusual bruising - Neurological Neurological ROS: as per HPI, no confusion, no convulsions, no focal weakness, no numbness, no tingling, no tremor(s) - Hematologic/Lymphatic Hematologic/Lymphatic: as per HPI, no easy bruising - Constitutional Vitals: Temp Pulse Resp BP Pulse Ox 98.5 F 91 18 112/64 93 03/16/18 21:41 03/16/18 22:40 03/16/18 22:40 03/16/18 22:40 03/16/18 22:40 General appearance: Present: answers questions appropriately Exam: General: A&O X3, conversant, no acute distress Head: atraumatic, normocephalic Eye: PERRL, EOMI, conjuntiva pink, sclera anicteric Neck: Supple, trachea midline; No lymphadenopathy Respiratory: CTAB. No accessory muscle use, wheezes, rales, or rhonchi Cardiovascular: Irregular rhythm, no murmur Abdomen: Soft, nontender Extremities: Status post right hand amputation. No clubbing or cyanosis. Neurological: CN II-XII intact Psychiatric: Normal affect, normal mood Skin: Dry, intact Internal Med - H&P Results - Labs CBC & Chem 7: 03/16/18 21:54 03/16/18 21:54 Labs: Short CBC 03/16/18 Range/Units 21:54 WBC 7.1 (4.3-11.1) K/mcL Hgb 11.6 L (12.9-16.9) g/dL Hct 36.5 L (37.5-50.1) % Plt Count 197 (140-400) K/mcL Neutrophils # 4.6 (1.6-8.9) K/mcL BMP 03/16/18 21:54 Sodium 139 Potassium 4.0 Chloride 103 Carbon Dioxide 27 BUN 27 H Creatinine 1.41 H Glucose 202 H Calcium 9.5 Cardiac Enzymes 03/16/18 Range/Units 21:54 Troponin I 0.09 H* (< 0.04) ng/mL - Impressions ITS Impressions Chest X-Ray 03/16/18 21:59 IMPRESSION: 1. Low lung volumes with bibasilar atelectasis. 2. Stable cardiomegaly without overt failure. D/ / Andreas Go MD / Andreas Go MD Interpreting Provider: Andreas Go MD - Assessment and plan (1) Atrial fibrillation with RVR Current Visit: Yes Status: Acute Assessment and plan: Initially presented with Clari bella with RVR; heart rate in the 160s - Converted after being given Cardizem 60 mg by mouth and 20 mg IV - Received 3 shocks from his LifeVest today - Denies having any chest pain, shortness of breath, diaphoresis, palpitations Plan: - Continuous telemetry - Consult cardiology - Resume home medications (2) Heart failure with reduced ejection fraction Current Visit: Yes Status: Acute Assessment and plan: - Known history of HFrEF; TTE on 03/12/18 demonstrated LVEF 30-35%, severe global LV systolic dysfunction - Chest x-ray demonstrated stable cardiomegaly without overt failure - No signs of volume overload at this time Plan: - Resume home medications - Cardiac Diet Qualifiers: Qualified Code(s): I50.20 - Unspecified systolic (congestive) heart failure (3) PEDRO (acute kidney injury) Current Visit: No Status: Acute Assessment and plan: - Presented with an elevated creatinine of 1.41 - Per chart review, patients creatinine appears to be within normal limits - Unknown etiology at this time Plan: - Repeat a.m. labs, gentle IV fluid hydration - Avoid nephrotoxic agents if possible (4) Diabetes mellitus Current Visit: No Status: Chronic Assessment and plan: - Known history of non-insulin dependent diabetes mellitus - Last glucose: 202 - SSI, medium dose protocol - Accuchecks Qualifiers: Qualified Code(s): E11.9 - Type 2 diabetes mellitus without complications (5) Hypertension Current Visit: Yes Status: Acute Assessment and plan: Patient has a known history of hypertension - BP currently well controlled at 112/64 Plan: - Resume home medications Qualifiers: Qualified Code(s): I10 - Essential (primary) hypertension - Time Spent With Patient Total time spent is greater than 50% in coordination of care (as documented) at patient's floor/unit and/or counseling patient: 25 - 35 minutes <Jw Tirado - Last Filed: 03/17/18 03:17> Date of Encounter: 03/17/18 Time of Encounter: 00:50 - Constitutional Constitutional: no fever(s) - EENT Eyes: no blurry vision, no change in vision Ears: no ear pain Nose, mouth and throat: no nasal congestion, no sore throat - Cardiovascular Cardiovascular ROS IM: palpitations, no chest pain, no diaphoresis, no dyspnea, no lightheadedness, no syncope - Respiratory Respiratory: no chest congestion, no excessive phlegm production, no change in phlegm color - Gastrointestinal Gastrointestinal: no diarrhea, no vomiting - Genitourinary Genitourinary ROS male: no dysuria, no flank pain - Neurological Neurological ROS: no dizziness, no focal weakness, no frequent falls, no headache(s) - Psychiatric Psychiatric: no anxiety, no depression - Endocrine Endocrine IM: no polydipsia, no polyuria - Constitutional Vitals: Temp Pulse Resp BP Pulse Ox 98.1 F 74 16 103/61 93 03/17/18 03:01 03/17/18 03:01 03/17/18 03:01 03/17/18 03:01 03/17/18 03:01 General appearance: Present: cooperative, A&O X 3, pleasant, no acute distress, answers questions appropriately - Head Head exam: Present: normal inspection - Eye Eye exam: Present: EOMI, PERRL. Absent: scleral icterus - ENT ENT exam: Present: mucous membranes dry, normal oropharynx - Neck Neck exam general surgery: Present: supple - Respiratory Respiratory exam: Present: CTAB. Absent: chest wall tenderness, rales, rhonchi, wheezes - Cardiovascular Cardiovascular exam: Present: distant heart sounds, irregular rhythm, +S1, +S2. Absent: diastolic murmur, systolic murmur - GI/Abdominal GI/Abdominal exam: Present: normal bowel sounds, soft. Absent: hepatomegaly, mass, splenomegaly - Extremities Exam Extremities exam: Present: normal capillary refill, normal inspection, warm, radial pulses palpable and symmetrical. Absent: calf tenderness, pedal edema, tenderness - Back Exam Back exam: Absent: CVA tenderness (L), CVA tenderness (R) - Neurological Exam Neurological exam: Present: alert, oriented X3, no focal deficits, strengths equal and symetr throughout - Psychiatric Psychiatric exam: Present: normal affect, normal mood - Skin Skin exam: Present: dry, intact, warm Internal Med - H&P Results - Labs CBC & Chem 7: 03/16/18 21:54 03/16/18 21:54 Labs: Short CBC 03/16/18 Range/Units 21:54 WBC 7.1 (4.3-11.1) K/mcL Hgb 11.6 L (12.9-16.9) g/dL Hct 36.5 L (37.5-50.1) % Plt Count 197 (140-400) K/mcL Neutrophils # 4.6 (1.6-8.9) K/mcL BMP 03/16/18 21:54 Sodium 139 Potassium 4.0 Chloride 103 Carbon Dioxide 27 BUN 27 H Creatinine 1.41 H Glucose 202 H Calcium 9.5 Cardiac Enzymes 03/16/18 03/17/18 Range/Units 21:54 00:38 Troponin I 0.09 H* 0.08 H* (< 0.04) ng/mL - Impressions ITS Impressions Chest X-Ray 03/16/18 21:59 IMPRESSION: 1. Low lung volumes with bibasilar atelectasis. 2. Stable cardiomegaly without overt failure. D/ / Andreas Go MD / Andreas Go MD Interpreting Provider: Andreas Go MD - Time Spent With Patient Total time spent is greater than 50% in coordination of care (as documented) at patient's floor/unit and/or counseling patient: - Attending Attestation I discussed the patient [place], past medical history, review of systems, lab data, and exam findings with Dr. Salamanca. I then saw and examined patient independ ently as well. Patient was just discharged 2 days ago with LifeVest. He has a known cardiomyopathy with EF less than 35%. He had his LifeVest discharge today, shocking him a total 3 times reportedly. He felt lightheaded and dizzy before the delivered shock. He feels fine no and denies any problems. He denies any chest pain presently. He is a little reluctant to go home now and requests a cardiology consultation. Patient responded to Cardizem in the ER. I am unable to find EKGs for review, but I am told he was in atrial fibrillation with rapid ventricular response. We will continue his home medications and monitor him on telemetry. We will consult cardiology for guidance regarding ongoing needs. Other than my comments noted above and documented physical exam findings, I agree with Dr. Salamanca's assessment and plan.
[2018-03-17] MEDS ORDERED: Naloxone 0.4 MG/ML INJ IVP PRN (00:12)
[2018-03-17] MEDS ORDERED: D5% in Water 1,000 ML IVC PRN (00:14)
[2018-03-17] MEDS ORDERED: Dextrose Gel 15 GM/37.5 ML TUBE PO PRN ×2 (00:14)
[2018-03-17] MEDS ORDERED: *HR* Dextrose 50 % in Water (Syg) 50 ML SYRINGE IVP PRN (00:14)
[2018-03-17] MEDS ORDERED: traMADol 50 MG TABLET PO PRN (00:15)
[2018-03-17] MEDS: 0.9 % Sodium Chloride 1,000 ML IVC SCH ×2 (01:18→08:26)
[2018-03-17] MEDS: *HR* Enoxaparin 80 MG/0.8 ML SYRINGE SQ SCH ×3 (01:19→21:14)
[2018-03-17 01:26] LABS: Troponin I 0.08 ng/mL (< 0.04)
[2018-03-17 02:30] LABS: Magnesium 1.7 mg/dL (1.6-2.6)
[2018-03-17 07:08] LABS: Basophils % 0.3 %; Eosinophils # 0.2 K/mcL (0.0-0.6); Eosinophils % 3.5 %; Hematocrit 31.6 % (37.5-50.1); Hemoglobin 10.2 g/dL (12.9-16.9); Immature Granulocytes % 0.3 % (0-4); Lymphocytes # 1.6 K/mcL (0.6-4.6); Lymphocytes % 26.2 %; Mean Corpuscular HGB Conc 32.3 g/dL (31.6-35.5); Mean Corpuscular Hemoglobin 26.4 pg (28.0-33.3); Mean Corpuscular Volume 81.7 fL (83.0-100.0); Mean Platelet Volume 11.2 fL (9.4-12.4); Monocytes # 0.7 K/mcL (0.0-1.3); Monocytes % 11.9 %; Neutrophils # 3.6 K/mcL (1.6-8.9); Platelet Count 163 K/mcL (140-400); Red Blood Count 3.87 M/mcL (4.19-5.50); Red Cell Distribution Width 14.6 % (11.5-14.5); Segmented Neutrophils % 57.8 %
[2018-03-17 07:15] LABS: INR 1.1; Prothrombin Time 12.3 Seconds (9.4-12.1)
[2018-03-17 07:28] LABS: BUN/Creatinine Ratio 21 (6-26); Blood Urea Nitrogen 23 mg/dL (8-23); Calcium 8.9 mg/dL (8.6-10.3); Carbon Dioxide 26 mEq/L (23-29); Chloride 107 mEq/L (98-107); Chol/HDL Ratio 2.9 (0-4.9); Cholesterol 127 mg/dL (< 200); Glucose 141 mg/dL (70-105); HDL Cholesterol 44 mg/dL (40-59); LDL Cholesterol,Calculated 61 mg/dL (0-99); Magnesium 1.6 mg/dL (1.6-2.6); Osmolality,Calculated 296 (280-300); Phosphorous 2.9 mg/dL (2.7-4.5); Potassium 3.6 mEq/L (3.5-5.1); Sodium 140 mEq/L (136-145); Triglycerides 109 mg/dL (< 150); eGFR For Non-African Americans > 60 (> 60)
[2018-03-17] MEDS: Insulin LISPRO 300 UNITS/3 ML VIAL SQ SCH ×3 (08:20→17:38)
[2018-03-17] MEDS: Aspirin 81 MG TAB.CHEW PO SCH (08:26)
[2018-03-17] MEDS: Gabapentin 400 MG CAPSULE PO SCH ×3 (08:26→21:14)
--- NOTE | 2018-03-17 11:40 | Cardiology Consult Note ---
<Mariella Benitez - Last Filed: 03/17/18 11:51> Date of Encounter: 03/17/18 Time of Encounter: 11:00 Assessment and Plan (1) Defibrillator discharge Current Visit: Yes Status: Acute Per cardiology: -LIfe vest shock inappropriate. Was shocked for sinus tachycardia. -Patient reports he was awake, alert, and oriented when life vest alerted him it was going to shock him. States he deferred shock x2, then allowed vest to shock him. -ECGs reviewed with , sinus tachycardia. -On BB. -Discussed and reviewed with , will increase BB. -Will order [employer] to change life vest settings. -If no recurrence of ST overnight, can consider discharge tomorrow. (2) Cardiomyopathy Current Visit: Yes Status: Chronic Per Cardiology: -LV systolic function 30% on [facility] January 30. -Previously documented at 35-40% on TTE 09/2017. -Repeat TTE 03/2018 EF 30-35%. -Patient otherwise appears fairly compensated. -Recommend continuing medical therapy - BB, ACEI/HCTZ. Unable to uptitrate due to low normal BP. Qualifiers: Cardiomyopathy type: ischemic Qualified Code(s): I25.5 - Ischemic cardiomyopathy (3) Coronary artery disease Current Visit: No Status: Chronic Per cardiology: -History of remote bypass having recently undergone left heart catheterization demonstrating severe nome CAD with 1/4 patent bypass grafts (RODRÍGUEZ). Intervent ion was not performed. Medical management recommended. Continue asa, plavix, statin. Qualifiers: Coronary Disease-Associated Artery/Lesion type: bypass graft [place] vs. transplanted heart: nome heart Associated angina: without angina Qualified Code(s): I25.810 - Atherosclerosis of coronary artery bypass graft(s) without angina pectoris (4) Elevated troponin Current Visit: No Status: Acute Per cardiology: -Elevated troponin probably represents demand ischemia in secondary of known severe CAD, PEDRO, tachycardia. May also be down trending from recent admission. -Recent [facility] 01/2018 with severe CAD, no intervention. Medical management was recommended. -Patient denies chest pain. -ECG with no acute ischemic ECG changes. -On asa, plavix, statin, BB. -TTE with LVEF 30-35%, global hypokineiss. -Last TTE 09/2017 with LVEF 35-40%, global hypokinesis. -Demand ischemia, no further cardiac testing warranted. Discussion w patient/family: The assessment and plan as outlined above was discussed with the patient who expressed understanding and agreement. All questions were answered. Thank you for involving us in the care of your patient. Please call with any questions. Discussed and reviewed with . History of Present Illness Consult date: 03/17/18 Requesting physician: Irving Salamanca Consult reason: life vest shock Chief complaint: life vest shock History of present illness: Mr. Clark is a 72 year old male with a relevant past medical history of ICM, PR, CAD s/p CABG, HTN, DM, HLD, CHF who presented to [facility] after shock by life vest. Patient reports he was awake, alert, oriented when life vest alerted it was going to shock him. Patient states he deferred shock x2, then allowed vest to shock him. Patient states he drove to [place], where his daughter met him and drove him the rest of the way to [facility]. Patient reported that he could feel that his heart rate was elevated. Denies chest pain. Deneis shortness of breath. Past Med Surg Social Fam HX - Past Medical History Attestation: Yes The following information was validated with the patient. Source: patient, old records reviewed Medical history: cardiomyopathy, CHF, coronary artery disease, diabetes, GERD, hyperlipidemia, hypertension, other Additional medical history: colon polyps, gastritis Psychiatric history: no psych history - Past Surgical History Surgical History: angioplasty/stent, cholecystectomy, coronary bypass (CABG), other Additional surgical history: amputation right hand, colonoscopy, egd - Social History Smoking Status: Never smoker Smokeless Tobacco Status: No Alcohol use: none Drug use: none - Family History Father Living Status: Hx Family Cardiac Disorders: Yes (CAD) Hx Family Endocrine Disorder: Yes (Diabetes Mellitus) Mother Living Status: Hx Family Cardiac Disorders: Yes (CAD) Sister Living Status: Still Living Hx Family Cancer: Yes (Breast cancer) Hx Family Neuromuscular Disorders: Yes (Scoliosis) Medications and Allergies Multivitamin/Iron/Folic Acid [Centrum Complete Multivit Tab] 1 tab PO DAILY 12/10/14 [History] Clopidogrel [Plavix] 75 mg PO DAILY 02/14/17 [History] Carvedilol [Coreg] 12.5 mg PO BID 04/11/17 [History] metFORMIN [Glucophage] 1,000 mg PO BIDWM 04/11/17 [History] Aspirin 81 mg PO DAILY 06/26/17 [History] Nitroglycerin 0.4 mg PO Q5MIN PRN 10/19/17 [History] Omeprazole [PriLOSEC] 40 mg PO DAILY 10/19/17 [History] Promethazine [Phenergan] 25 mg PO DAILY PRN 10/19/17 [History] Quinapril/Hydrochlorothiazide [Quinapril-Hctz 10-12.5 mg Tab] 1 tab PO DAILY [History] Rosuvastatin Calcium 40 mg PO DAILY 10/19/17 [History] Isosorbide MONOnitrate (24 HR) [Imdur] 30 mg PO DAILY 01/30/18 [History] Tramadol HCl [Ultram] 50 mg PO TID PRN 01/30/18 [History] Biotin 1 mg PO DAILY 03/10/18 [History] Gabapentin [Neurontin] 800 mg PO TID 03/10/18 [History] Loperamide HCl [Imodium A-D] 2 mg PO DAILY PRN 03/10/18 [History] Allergy/AdvReac Type Severity Reaction Status Date / Time No Known Allergies Allergy Verified 10/19/17 14:26 All Systems Review: The remainder of the systems were reviewed and are negative - Cardiovascular Cardiovascular: as per HPI, rapid heart rate, other (LIfe vest shock) Physical Examination Vital Signs, Last 4 Hours Temp Pulse Resp BP Pulse Ox 03/17/18 11:27 97.8 F 77 18 120/68 95 03/17/18 08:32 96 General: Conversant, No Apparent Distress HEENT: Atraumatic, Normocephaly, Mucus Membranes Moist Neck: No JVD, Normal carotid pulses Cardiac: Reg Rate and Rhythm, Normal S1 and S2, No Murmur Lungs: Normal Breath Sounds, No Wheeze, Rales, Rhonchi Neuro: Alert and responsive, No focal deficits noted Abdomen: Soft, Non-Tender Skin: No rashes noted on visualized skin Musculoskeletal: No Chest Wall Tenderness Extremities: No Clubbing, No Cyanosis, No Edema, Normal Pulses Results 03/17/18 06:16 03/17/18 06:16 Lab Results Impressions Chest X-Ray 03/16/18 21:59 IMPRESSION: 1. Low lung volumes with bibasilar atelectasis. 2. Stable cardiomegaly without overt failure. D/ / Andreas Go MD / Andreas Go MD Interpreting Provider: Andreas Go MD Active Medications Aspirin (Aspirin) 81 mg PO DAILY [facility] Stop: 09/16/18 09:01 Last Admin: 03/17/18 08:26 Dose: 81 mg Carvedilol (Coreg) 25 mg PO BIDWM [facility]; Protocol Stop: 09/16/18 17:01 Clopidogrel Bisulfate (Plavix) 75 mg PO DAILY [facility] Stop: 09/16/18 09:01 Last Admin: 03/17/18 08:25 Dose: 75 mg Dextrose/Water (Dextrose 50% (Syg)) 25 ml IVP AD PRN PRN Reason: Hypoglycemia Stop: 09/16/18 00:15 Enoxaparin Sodium (Lovenox) 70 mg 1 mg/kg (70 mg) SQ Q12H [facility]; Protocol Stop: 09/15/18 23:01 Last Admin: 03/17/18 10:49 Dose: 70 mg Gabapentin (Neurontin) 800 mg PO TID [facility] Stop: 09/16/18 09:01 Last Admin: 03/17/18 08:26 Dose: 800 mg Glucagon (Glucagen) 1 mg IM ONCE PRN PRN Reason: Hypoglycemia Stop: 09/16/18 00:15 Glucose (Gluctose) 15 gm PO ONCE PRN PRN Reason: Hypoglycemia Stop: 09/16/18 00:15 Glucose (Gluctose) 30 gm PO ONCE PRN PRN Reason: Hypoglycemia Stop: 09/16/18 00:15 Sodium Chloride (0.9 % Sodium Chloride) 1,000 mls @ 125 mls/hr IVC .Q8H [facility] Stop: 03/17/18 16:14 Last Admin: 03/17/18 08:26 Dose: 125 mls/hr Dextrose (Dextrose 5%) 1,000 mls @ 100 mls/hr IVC .Q10H PRN PRN Reason: HYPOGLYCEMIA Stop: 09/16/18 00:15 Insulin Human Lispro (Humalog) 0 units SQ TIDAC [facility]; Protocol Stop: 09/16/18 07:31 Last Admin: 03/17/18 08:20 Dose: Not Given Loperamide HCl (Imodium) 2 mg PO DAILY PRN PRN Reason: Diarrhea Naloxone HCl (Narcan) 0.4 mg IVP Q2MIN PRN PRN Reason: SEE COMMENTS Stop: 09/16/18 00:13 Omeprazole (Prilosec) 40 mg PO 0630 [facility] Stop: 09/16/18 06:31 Last Admin: 03/17/18 06:05 Dose: 40 mg Promethazine HCl (Phenergan) 25 mg PO DAILY PRN PRN Reason: Nausea Stop: 09/16/18 00:16 Rosuvastatin Calcium (Crestor) 40 mg PO DAILY [facility] Stop: 09/16/18 09:01 Last Admin: 03/17/18 08:26 Dose: 40 mg Tramadol HCl (Ultram) 50 mg PO TID PRN PRN Reason: Pain Stop: 09/16/18 00:16 Laboratory Tests 03/16/18 03/17/18 03/17/18 21:54 00:38 06:16 Hgb 10.2 L Troponin I 0.09 H* 0.08 H* 03/17/18 06:16 Hgb Troponin I 0.08 H* - Imaging and Cardiology Chest Xray: report reviewed Echo: report reviewed Cardiac cath: report reviewed - EKG Interpretation EKG results cardiology: personally reviewed (ECG with ST, HR 155.), other (Telemetry reveiwed with average HR previous 12 hours noted to be 74, SR. PVCs, couplets noted.) Consult Discharge Plan - Plan Referrals: Angelika Montalvo, [facility] [Primary Care Provider] - (Follow up appointment has been requested. ) <Shakeel Sanchez - Last Filed: 03/17/18 18:23> Date of Encounter: 03/17/18 - Attending Attestation Patient was seen and evaluated independently by me. Findings, assessment and plan were discussed at length with patient, questions answered. Agree with nurse practitioner's/resident's documentation. Addition as follows, 72 yoCM ho HFrEF EF 30-35%, SVT 170s with aberrancy vs VT on life vest, ICMP s/p CABG with non-revascularizable CAD. P/w syncope after consciously allowing lifevest to deliver a shock. No cp or palpitations before event. ECG on presentation consistent with sinus tachycardia 150s with IVCD, no sig change c/w prior ECGs. Trop peak 0.1. VSS, CTA, RR, NT, no LE edema A: life vest shock for asymptomatic tachycardia, unclear appropriate or inappropriate ho WCT 170s w/o syncope with baseline IVCD pattern HFrEF no ADHF severe non-revascularizable CAD, s/p CABG only RODRÍGUEZ-LAD patent P: tele request lifevest interrogation from [employer], if inappropriate sensing/shock, adjust the VT shock zone ask pt to defer lifevest shock prompts if conscious up on BB Shakeel Sanchez MD, PhD Assessment and Plan Discussion w patient/family: The assessment and plan as outlined above was discussed with the patient and/or family members who expressed understanding and agreement. All questions were answered. Thank you for involving us in the care of your patient. Please call with any questions. History of Present Illness History of present illness: Mr. Clark is a 72 year old male All Systems Review: The remainder of the systems were reviewed and are negative Physical Examination Vital Signs, Last 4 Hours Temp Pulse Resp BP Pulse Ox 03/17/18 15:46 97.6 F 79 18 116/71 97 Results 03/17/18 06:16 03/17/18 06:16 Lab Results 03/16/18 03/16/18 03/16/18 21:54 21:54 21:54 WBC 7.1 Hgb 11.6 L Hct 36.5 L Plt Count 197 INR 1.0 APTT 30.1 D Sodium 139 Potassium 4.0 Chloride 103 Carbon Dioxide 27 BUN 27 H Creatinine 1.41 H Glucose 202 H Calcium 9.5 Magnesium Troponin I 0.09 H* B-Natriuretic Peptide 03/17/18 03/17/18 03/17/18 00:38 06:16 06:16 WBC 6.2 Hgb 10.2 L Hct 31.6 L Plt Count 163 INR 1.1 APTT Sodium Potassium Chloride Carbon Dioxide BUN Creatinine Glucose Calcium Magnesium 1.7 Troponin I 0.08 H* B-Natriuretic Peptide 03/17/18 03/17/18 03/17/18 06:16 06:16 06:16 WBC Hgb Hct Plt Count INR APTT Sodium 140 Potassium 3.6 Chloride 107 Carbon Dioxide 26 BUN 23 Creatinine 1.11 Glucose 141 H Calcium 8.9 Magnesium 1.6 Troponin I 0.08 H* B-Natriuretic Peptide 437 H 03/17/18 12:50 WBC Hgb Hct Plt Count INR APTT Sodium Potassium Chloride Carbon Dioxide BUN Creatinine Glucose Calcium Magnesium Troponin I 0.07 H* B-Natriuretic Peptide
--- NOTE | 2018-03-17 13:04 | Internal Med Progress Note ---
Hospitalist Progress Note - Encounter Date of Encounter: 03/17/18 Time of Encounter: 13:01 - Subjective Interval History: Navid Clark is a 72 year old male with PMH of CAD, DM, GERD, HLD, HTN, status post CABG who presented to [facility] ED on 03/16/18 with a chief complaint of arrhythmia and his LifeVest defibrillating him. Investigation into the LifeVest revealed wide-complex tachycardia, consider SVT however, given patient's history cannot rule out V. tach. Patient is chest pain-free, palpitation free and resting comfortably without any distress at this time. No acute complaints. No acute change in condition overnight. - Exam Vitals: Temp Pulse Resp BP Pulse Ox 97.8 F 77 18 120/68 95 03/17/18 11:27 03/17/18 11:27 03/17/18 11:27 03/17/18 11:27 03/17/18 11:27 Exam: PHYSICAL EXAMINATION: GENERAL: The patient is an elderly male in no acute distress, alert and oriented 3. HEENT: Head is normocephalic and atraumatic. Extraocular muscles are intact. Pu pils are equal, round, and reactive to light and accommodation. NECK: Supple. No carotid bruits. No lymphadenopathy or thyromegaly. LUNGS: Clear to auscultation B/L AP and L. HEART: Regular rate and rhythm, S1, S2 without murmurs, rubs or gallops. ABDOMEN: Soft, nontender, and nondistended. Positive bowel sounds. No hepatosplenomegaly was noted. EXTREMITIES: Without any cyanosis, clubbing, rash, lesions or edema. NEUROLOGIC: Cranial nerves II through XII are grossly intact. SKIN: No ulceration or induration present. - Assessment and Plan (1) Defibrillator discharge Current Visit: Yes Status: Acute Assessment and Plan: Presented with concerns for wide-complex tachycardia Patient reporting LifeVest attempted to deliver 3 shocks total; he deferred the first 2 shocks within a lot of fast to shock him on the third Per cardiology LifeVest was inappropriately shocking sinus tachycardia LifeVest has been consulted for new Avastin to alter setting per cardiology Beta brent dose increased Continue to monitor overnight (2) Atrial fibrillation Current Visit: Yes Status: Acute Assessment and Plan: Some initial concerns her presentation for A. fib RVR with heart rate in the 160 s However this was most likely SVT Beta brent dose increased Continue telemetry Normal sinus rhythm rate in 70s at this time (3) Hypertension Current Visit: Yes Status: Acute Assessment and Plan: Per history, continue anti-HTN meds (4) Cardiomyopathy Current Visit: Yes Status: Chronic Assessment and Plan: Ischemic cardio myopathy with severe global systolic dysfunction. LVEF 30-35%. Chest x-ray stable with cardiomegaly without overt failure No S/SX of volume overload Continue home medications cardiac diet (5) Elevated troponin Current Visit: No Status: Acute Assessment and Plan: Most likely demand ischemia secondary to known severe CAD and episode of tachycardia [facility] 02/15 with severe CAD, no intervention. Medical management recommended Continue aspirin, Plavix, statin, beta brent dose increased EKG without acute ischemic changes Monitor on telemetry Cardiology following consultation (6) Coronary artery disease Current Visit: No Status: Chronic Assessment and Plan: As above (7) Diabetes mellitus Current Visit: No Status: Chronic Assessment and Plan: Per history, continue medium sliding scale coverage (8) Systolic dysfunction, left ventricle Current Visit: No Status: Chronic Assessment and Plan: As above - Time Spent with Patient Total time spent is greater than 50% in coordination of care (as documented) at patient's floor/unit and/or counseling patient: less than 15 minutes Plan of Care Discussed with: patient Internal Medicine: Result - Labs CBC & Chem 7: 03/17/18 06:16 03/17/18 06:16 Labs: Short CBC 03/16/18 03/17/18 Range/Units 21:54 06:16 WBC 7.1 6.2 (4.3-11.1) K/mcL Hgb 11.6 L 10.2 L (12.9-16.9) g/dL Hct 36.5 L 31.6 L (37.5-50.1) % Plt Count 197 163 (140-400) K/mcL Neutrophils # 4.6 3.6 (1.6-8.9) K/mcL BMP 03/16/18 03/17/18 21:54 06:16 Sodium 139 140 Potassium 4.0 3.6 Chloride 103 107 Carbon Dioxide 27 26 BUN 27 H 23 Creatinine 1.41 H 1.11 Glucose 202 H 141 H Calcium 9.5 8.9 Cardiac Enzymes 03/16/18 03/17/18 03/17/18 Range/Units 21:54 00:38 06:16 Troponin I 0.09 H* 0.08 H* 0.08 H* (< 0.04) ng/mL - ABG Interpretation ABG results: PT/INR, D-dimer PT 12.3 Seconds (9.4-12.1) H 03/17/18 06:16 - Impressions Impressions Chest X-Ray 03/16/18 21:59 IMPRESSION: 1. Low lung volumes with bibasilar atelectasis. 2. Stable cardiomegaly without overt failure. D/ / Andreas Go MD / Andreas Go MD Interpreting Provider: Andreas Go MD Consult Discharge Plan - Plan Referrals: Angelika Montalvo, MEDIA DEVELOPER [Primary Care Provider] - (Please call [phone] to schedule follow up appointment for 7-10 days from date of discharge. ) (2) Atrial fibrillation Qualifiers: Atrial fibrillation type: unspecified Qualified Code(s): I48.91 - Unspecified atrial fibrillation (3) Hypertension Qualifiers: Hypertension type: unspecified Qualified Code(s): I10 - Essential (primary) hypertension (4) Cardiomyopathy Qualifiers: Cardiomyopathy type: ischemic Qualified Code(s): I25.5 - Ischemic cardiomyopathy (6) Coronary artery disease Qualifiers: Coronary Disease-Associated Artery/Lesion type: bypass graft [place] vs. transplanted heart: [place] heart Associated angina: without angina Qualified Code(s): I25.810 - Atherosclerosis of coronary artery bypass graft(s) without angina pectoris (7) Diabetes mellitus Qualifiers: Qualified Code(s): E11.9 - Type 2 diabetes mellitus without complications
[2018-03-18] MEDS ORDERED: Saline Nasal Spray 44 ML BOTTLE NS PRN (05:37)
--- NOTE | 2018-03-18 07:44 | Event Note ---
Addendum entered and electronically signed by Shakeel Sanchez MD 03/18/18 14:12: Lifevest tracing jace-ICD shock [id number] reviewed: around 6 minute tracing, mostly in [id number] with occasional PVCs of different morphology; one episode of abrupt WCT rate drop to 150s with relatively narrower QRS, then a PVC and resuming WCT 170s (likely retrograde P triggering SVT/AVNRT). Seems the shock (ca 140 sec into the tracing) didn't terminate or change the rhythm. Unclear when pt spontaneously went from WCT 170s (likely SVT with aberrancy) to sinus tachy 150s with IVCD on admission ECG. Addendum entered and electronically signed by Kyle Mccord CNP 03/18/18 10:43: Telemetry from the [facility] was received and reviewed with Dr. Sanchez. Patient seemed to have SVT. No change in rhythm from shocks seen. Continue increased dose of BB. Outpatient follow-up will be coordinated. Original Note: Date of Encounter: 03/18/18 Time of Encounter: 07:42 - Cardiology Event Note Cardiology reviewed telemetry this morning. 24 hour review shows Avg HR 88 bpm, Mx HR was 100 bpm. No recurrent sinus tachycardia. PVC's noted with no runs NSVT. Cardiology will sign off. Out pt f/u will be arranged. Call with changes.
[2018-03-18 07:57] VITALS: BP 136/83
[2018-03-18] MEDS: Gabapentin 400 MG CAPSULE PO SCH (09:23)
[2018-03-18] MEDS: Insulin LISPRO 300 UNITS/3 ML VIAL SQ SCH (09:23)
[2018-03-18] MEDS: Aspirin 81 MG TAB.CHEW PO SCH (09:23)
--- NOTE | 2018-03-18 11:12 | Discharge Summary ---
Orders not resulted at time of discharge: Pending orders 03/16/18 21:59 ECG 12 lead ECG [ECG] Stat Date of Encounter: 03/18/18 Time of Encounter: 11:10 - Discharge Diagnosis (1) Defibrillator discharge Priority: Primary Status: Acute Assessment and Plan: Presented with concerns for wide-complex tachycardia Patient reporting LifeVest attempted to deliver 3 shocks total; he deferred the first 2 shocks within a lot of fast to shock him on the third Per cardiology LifeVest was inappropriately shocking sinus tachycardia He has had a few LifeVest delivered and settings have been adjusted Beta brent dose increased Continue to monitor overnight (2) Atrial fibrillation Priority: Secondary Status: Acute Qualifiers: Atrial fibrillation type: unspecified Qualified Code(s): I48.91 - Unspecified atrial fibrillation (3) Hypertension Priority: Secondary Status: Acute Qualifiers: Hypertension type: unspecified Qualified Code(s): I10 - Essential (primary) hypertension (4) Cardiomyopathy Priority: Secondary Status: Chronic Qualifiers: Cardiomyopathy type: ischemic Qualified Code(s): I25.5 - Ischemic cardiomyopathy (5) Elevated troponin Priority: Secondary Status: Acute (6) Coronary artery disease Priority: Secondary Status: Chronic Qualifiers: Coronary Disease-Associated Artery/Lesion type: bypass graft [place] vs. transplanted heart: [place] heart Associated angina: without angina Qualified Code(s): I25.810 - Atherosclerosis of coronary artery bypass graft(s) without angina pectoris (7) Diabetes mellitus Priority: Secondary Status: Chronic Qualifiers: Qualified Code(s): E11.9 - Type 2 diabetes mellitus without complications (8) Systolic dysfunction, left ventricle Priority: Secondary Status: Chronic Hospital course: Mr. Clark is a 72 year old male with ischemic cardiomyopathy who presented to [facility] with a chief complaint of his LifeVest defibrillating. Per cardiology review of the Life vest telemetry the patient was having inappropriate shock response to a sinus tachyarrhythmia. His beta brent dose was increased and he has had no additional events on telemetry. [employer] is received and reviewed with Dr. Sanchez her drama director and agree that the patient may have had SVT. There is no change in rhythm when shocks were delivered. With favorable response to increased beta brent dose and no additional events the patient is safe to discharge per cardiology recommendations. 11 outpatient follow-up with cardiology. He will discharge with a new LifeVest with increased settings. Again per my review there is been no recurrent episodes of tachycardia, no runs of SVT. Discharge discussed with: patient, nurse - Time Spent with Patient Total time spent providing and/or coordinating discharge services: Less than 30 minutes - Discharge Medications Home Medications: Multivitamin/Iron/Folic Acid [Centrum Complete Multivit Tab] 1 tab PO DAILY 12/10/14 [History] Clopidogrel [Plavix] 75 mg PO DAILY 02/14/17 [History] Carvedilol [Coreg] 12.5 mg PO BID 04/11/17 [History] metFORMIN [Glucophage] 1,000 mg PO BIDWM 04/11/17 [History] Aspirin 81 mg PO DAILY 06/26/17 [History] Nitroglycerin 0.4 mg PO Q5MIN PRN 10/19/17 [History] Omeprazole [PriLOSEC] 40 mg PO DAILY 10/19/17 [History] Promethazine [Phenergan] 25 mg PO DAILY PRN 10/19/17 [History] Quinapril/Hydrochlorothiazide [Quinapril-Hctz 10-12.5 mg Tab] 1 tab PO DAILY 10/19/17 [History] Rosuvastatin Calcium 40 mg PO DAILY 10/19/17 [History] Isosorbide MONOnitrate (24 HR) [Imdur] 30 mg PO DAILY 01/30/18 [History] Tramadol HCl [Ultram] 50 mg PO TID PRN 01/30/18 [History] Biotin 1 mg PO DAILY 03/10/18 [History] Gabapentin [Neurontin] 800 mg PO TID 03/10/18 [History] Loperamide HCl [Imodium A-D] 2 mg PO DAILY PRN 03/10/18 [History] Allergies/Adverse Reactions: Allergy/AdvReac Type Severity Reaction Status Date / Time No Known Allergies Allergy Verified 10/19/17 14:26 Date of admission: 03/16/18 23:28 Primary care physician: Angelika Montalvo CNP Consults: 03/17/18 02:10 Consult to Cardiology [CONS] Routine Comment: Consulting Provider: Cardiology [place] Reason for Consult: afib with rvr; shocked by lifevest Call Completed: No Discharging clinician: Catracho Larry Anticipated date of discharge: 03/18/18 - Constitutional Vitals: Temp Pulse Resp BP Pulse Ox 98.2 F 91 17 136/83 96 03/18/18 07:55 03/18/18 07:55 03/18/18 07:55 03/18/18 07:55 03/18/18 07:55 General appearance: Present: cooperative, A&O X 3, pleasant, no acute distress, answers questions appropriately Exam: PHYSICAL EXAMINATION: GENERAL: The patient is an elderly male in no acute distress, alert and oriented 3. HEENT: Head is normocephalic and atraumatic. Extraocular muscles are intact. Pupils are equal, round, and reactive to light and accommodation. NECK: Supple. No carotid bruits. No lymphadenopathy or thyromegaly. LUNGS: Clear to auscultation B/L AP and L. HEART: Regular rate and rhythm, S1, S2 without murmurs, rubs or gallops. ABDOMEN: Soft, nontender, and nondistended. Positive bowel sounds. No hepatosplenomegaly was noted. EXTREMITIES: Without any cyanosis, clubbing, rash, lesions or edema. NEUROLOGIC: Cranial nerves II through XII are grossly intact. SKIN: No ulceration or induration present. - Patient Status Disposition: Home, Self-Care Condition: Good Functional capacity at discharge: independent ambulation Overall status at discharge: patient is progressing back to baseline - Discharge Instructions Follow Up With: Angelika Montalvo CNP [Primary Care Provider] - (Follow up appointment has been requested. ) Forms: ED Satisfaction Letter - Diet and Activity Activity: increase activity as tolerated, resume usual activities as tolerated Diet: diabetic diet, low fat, low cholesterol, low salt diet
--- NOTE | 2018-03-19 17:53 | Electrocardiograph Report ---
[address] [address] Test Date: 2018-03-16 Pat Name: Navid Clark Department: [id number] Room: 3B Gender: M Tray Drier: : 1945 Requested By: Maranda Schaeffer Order Number: [id number] Reading MD: Sharon Mendoza Measurements Intervals [place] Rate: 155 P: 0 CO: QRS: -60 QRSD: 144 T: 63 QT: 361 QTc: 580 Interpretive Statements Regular wide complex tachycardia Electronically Signed On 03-19-2018 17:52:06 EST by Sharon Mendoza
== END 2018-03-18 14:20 | disposition home or self-care (01) ==
LOC: 3BNU 21:34 → EMEROOARM 21:34 → 3BNU 03-17 01:20
PROVIDERS: ADMIT Internal Medicine; ATTEND Internal Medicine

== ENCOUNTER 2019-06-20 15:31 | Observation (INO) ==
[2019-06-20] MEDS ORDERED: Aspirin 325 MG TABLET PO ONE (16:03)
[2019-06-20 16:15] LABS: Basophils % 0.1 %; Eosinophils % 0.3 %; Hematocrit 35.2 % (37.5-50.1); Hemoglobin 11.1 g/dL (12.9-16.9); Immature Granulocytes % 0.3 % (0-4); Lymphocytes # 1.1 K/mcL (0.6-4.6); Lymphocytes % 11.4 %; Mean Corpuscular HGB Conc 31.5 g/dL (31.6-35.5); Mean Corpuscular Hemoglobin 25.1 pg (28.0-33.3); Mean Corpuscular Volume 79.5 fL (83.0-100.0); Mean Platelet Volume 10.5 fL (9.4-12.4); Monocytes # 0.7 K/mcL (0.0-1.3); Monocytes % 7.3 %; Neutrophils # 7.6 K/mcL (1.6-8.9); Platelet Count 246 K/mcL (140-400); Red Blood Count 4.43 M/mcL (4.19-5.50); Red Cell Distribution Width 15.5 % (11.5-14.5); Segmented Neutrophils % 80.6 %; White Blood Count 9.5 K/mcL (4.3-11.1)
[2019-06-20] MEDS ORDERED: Furosemide 40 MG/4 ML VIAL IVP ONE (16:15)
[2019-06-20] MEDS ORDERED: Ipratropium/Albuterol Neb 3 ML IH ONE (16:15)
[2019-06-20 16:35] LABS: BUN/Creatinine Ratio 17 (6-26); Blood Urea Nitrogen 32 mg/dL (8-23); Calcium 9.9 mg/dL (8.6-10.3); Carbon Dioxide 26 mEq/L (23-29); Chloride 99 mEq/L (98-107); Glucose 126 mg/dL (70-105); Osmolality,Calculated 290 (280-300); Potassium 4.4 mEq/L (3.5-5.1); Sodium 136 mEq/L (136-145); Troponin I < 0.03 ng/mL (< 0.04); eGFR For African Americans 44 (> 60); eGFR For Non-African Americans 37 (> 60)
[2019-06-20] MEDS ORDERED: Naloxone 0.4 MG/ML INJ IVP PRN (17:07)
[2019-06-20] MEDS ORDERED: *HR* Dextrose 50 % in Water (Syg) 50 ML SYRINGE IVP PRN (17:11)
[2019-06-20] MEDS ORDERED: Dextrose Gel 15 GM/37.5 ML TUBE PO PRN ×2 (17:11)
[2019-06-20] MEDS ORDERED: D5% in Water 1,000 ML IVC PRN (17:11)
[2019-06-20 17:29] LABS: INR 3.3
[2019-06-20] MEDS ORDERED: Warfarin perPT PO PRN (18:00)
[2019-06-20] MEDS ORDERED: *HR* Warfarin 2.5 MG TABLET PO ONE (18:00)
[2019-06-20] MEDS: Metoprolol 100 MG TABLET PO SCH (20:12)
[2019-06-20] MEDS ORDERED: Perflutren Lipid Microsphere 1.3 ML in 0.9 % Sodium Chloride 8.7 ML IVP ONE (21:35)
[2019-06-21] MEDS ORDERED: Ipratropium/Albuterol Neb 3 ML IH ONE (00:22)
[2019-06-21 02:25] LABS: Hematocrit 30.6 % (37.5-50.1); Hemoglobin 9.7 g/dL (12.9-16.9); Mean Corpuscular HGB Conc 31.7 g/dL (31.6-35.5); Mean Corpuscular Hemoglobin 25.1 pg (28.0-33.3); Mean Corpuscular Volume 79.3 fL (83.0-100.0); Mean Platelet Volume 10.8 fL (9.4-12.4); Platelet Count 218 K/mcL (140-400); Red Blood Count 3.86 M/mcL (4.19-5.50); Red Cell Distribution Width 15.5 % (11.5-14.5); White Blood Count 7.3 K/mcL (4.3-11.1)
[2019-06-21 02:26] LABS: Basophils % 0.3 %; Eosinophils # 0.1 K/mcL (0.0-0.6); Immature Granulocytes % 0.3 % (0-4); Lymphocytes # 1.1 K/mcL (0.6-4.6); Lymphocytes % 14.4 %; Monocytes # 0.7 K/mcL (0.0-1.3); Neutrophils # 5.5 K/mcL (1.6-8.9)
[2019-06-21 02:35] LABS: INR 3.2; Prothrombin Time 36.9 Seconds (9.4-12.1)
[2019-06-21 02:52] LABS: Calcium 9.5 mg/dL (8.6-10.3); Potassium 3.6 mEq/L (3.5-5.1)
[2019-06-21 03:00] LABS: Thyroid Stimulating Hormone 23.257 mcIU/mL (0.340-5.600)
[2019-06-21] MEDS: Insulin LISPRO 300 UNITS/3 ML VIAL SQ SCH ×3 (08:50→17:16)
[2019-06-21] MEDS ORDERED: Furosemide 40 MG/4 ML VIAL IVP ONE (13:06)
[2019-06-21] MEDS: Metoprolol 100 MG TABLET PO SCH ×2 (13:29→20:21)
[2019-06-21] MEDS: Isosorbide MONOnitrate (24 HR) 60 MG TAB.ER.24H PO SCH (13:29)
[2019-06-21] MEDS: *HR* Amiodarone 200 MG TABLET PO SCH (13:29)
[2019-06-21] MEDS: Gabapentin 400 MG CAPSULE PO SCH ×3 (17:53→22:09)
[2019-06-21] MEDS ORDERED: *HR* Warfarin 2.5 MG TABLET PO ONE (18:00)
[2019-06-21] MEDS ORDERED: Gabapentin 400 MG CAPSULE PO SCH (21:00)
[2019-06-22 06:28] LABS: INR 2.5; Immature Granulocytes % 0.3 % (0-4); Prothrombin Time 28.8 Seconds (9.4-12.1)
[2019-06-22 06:34] LABS: Basophils % 0.3 %; Eosinophils # 0.1 K/mcL (0.0-0.6); Eosinophils % 1.8 %; Hematocrit 35.1 % (37.5-50.1); Lymphocytes # 1.2 K/mcL (0.6-4.6); Lymphocytes % 18.2 %; Mean Corpuscular HGB Conc 32.5 g/dL (31.6-35.5); Mean Corpuscular Hemoglobin 25.8 pg (28.0-33.3); Mean Corpuscular Volume 79.4 fL (83.0-100.0); Mean Platelet Volume 11.5 fL (9.4-12.4); Monocytes # 0.8 K/mcL (0.0-1.3); Monocytes % 11.3 %; Neutrophils # 4.6 K/mcL (1.6-8.9); Platelet Count 211 K/mcL (140-400); Red Blood Count 4.42 M/mcL (4.19-5.50); Red Cell Distribution Width 15.5 % (11.5-14.5); Segmented Neutrophils % 68.1 %; White Blood Count 6.8 K/mcL (4.3-11.1)
[2019-06-22 06:36] LABS: Hemoglobin 11.4 g/dL (12.9-16.9)
[2019-06-22 06:44] LABS: Calcium 9.5 mg/dL (8.6-10.3); Potassium 3.1 mEq/L (3.5-5.1)
[2019-06-22 07:13] LABS: Triiodothyronine (T3) Free 3.21 pg/mL (2.50-3.90)
[2019-06-22 07:17] LABS: Triiodothyronine (T3) Total 0.75 ng/mL (0.87-1.78)
[2019-06-22] MEDS: Insulin LISPRO 300 UNITS/3 ML VIAL SQ SCH ×3 (08:30→16:45)
[2019-06-22] MEDS: Furosemide 40 MG/4 ML VIAL IVP SCH ×2 (08:40→21:52)
[2019-06-22] MEDS: Gabapentin 400 MG CAPSULE PO SCH ×3 (08:40→21:51)
[2019-06-22] MEDS: Isosorbide MONOnitrate (24 HR) 60 MG TAB.ER.24H PO SCH (08:40)
[2019-06-22] MEDS: Multivit/Ca/Min/Fe/FA 1 TAB TABLET PO SCH (08:40)
[2019-06-22] MEDS: *HR* Amiodarone 200 MG TABLET PO SCH (08:41)
[2019-06-22] MEDS: Metoprolol 100 MG TABLET PO SCH (08:41)
[2019-06-22] MEDS: Cyanocobalamin (B-12) 1,000 MCG TABLET PO SCH (08:41)
[2019-06-22] MEDS ORDERED: *HR* Warfarin 2.5 MG TABLET PO ONE (18:00)
[2019-06-22] MEDS: Metoprolol XL (24 HR) Succ 50 MG TAB.ER.24H PO SCH (21:51)
[2019-06-23 05:47] LABS: Calcium 9.5 mg/dL (8.6-10.3); Potassium 3.1 mEq/L (3.5-5.1)
[2019-06-23 05:49] LABS: Prothrombin Time 22.9 Seconds (9.4-12.1)
[2019-06-23] MEDS: Insulin LISPRO 300 UNITS/3 ML VIAL SQ SCH ×3 (07:42→16:37)
[2019-06-23] MEDS: Metoprolol XL (24 HR) Succ 50 MG TAB.ER.24H PO SCH ×2 (07:43→21:31)
[2019-06-23] MEDS: Multivit/Ca/Min/Fe/FA 1 TAB TABLET PO SCH (07:50)
[2019-06-23] MEDS: *HR* Amiodarone 200 MG TABLET PO SCH (07:50)
[2019-06-23] MEDS: Furosemide 40 MG/4 ML VIAL IVP SCH ×2 (07:50→21:32)
[2019-06-23] MEDS: Gabapentin 400 MG CAPSULE PO SCH ×3 (07:50→21:32)
[2019-06-23] MEDS: Isosorbide MONOnitrate (24 HR) 60 MG TAB.ER.24H PO SCH (07:51)
[2019-06-23] MEDS: Cyanocobalamin (B-12) 1,000 MCG TABLET PO SCH (07:51)
[2019-06-23] MEDS ORDERED: *HR* Warfarin 5 MG TABLET PO ONE (18:00)
[2019-06-23] MEDS ORDERED: *HR* Metoprolol 5 MG/5 ML VIAL IVP ONE ×2 (23:38→23:39)
[2019-06-24 05:11] LABS: Calcium 9.6 mg/dL (8.6-10.3); Potassium 3.6 mEq/L (3.5-5.1)
[2019-06-24 05:15] LABS: INR 1.6; Prothrombin Time 18.2 Seconds (9.4-12.1)
[2019-06-24] MEDS: Insulin LISPRO 300 UNITS/3 ML VIAL SQ SCH ×2 (08:08→11:11)
[2019-06-24] MEDS: Multivit/Ca/Min/Fe/FA 1 TAB TABLET PO SCH (08:12)
[2019-06-24] MEDS: *HR* Amiodarone 200 MG TABLET PO SCH (08:12)
[2019-06-24] MEDS: Cyanocobalamin (B-12) 1,000 MCG TABLET PO SCH (08:13)
[2019-06-24] MEDS: Isosorbide MONOnitrate (24 HR) 60 MG TAB.ER.24H PO SCH (08:13)
[2019-06-24] MEDS: Metoprolol XL (24 HR) Succ 50 MG TAB.ER.24H PO SCH (08:13)
[2019-06-24] MEDS: Gabapentin 400 MG CAPSULE PO SCH (08:13)
[2019-06-24] MEDS ORDERED: Furosemide 40 MG TABLET PO SCH (09:00)
[2019-06-24 10:34] VITALS: BP 119/76
[2019-06-24] MEDS ORDERED: *HR* Warfarin 5 MG TABLET PO ONE (18:00)
== END 2019-06-24 11:21 | disposition home or self-care (01) ==
LOC: EMEROOARM 15:31 → 3BNU 15:31 → SUATTDRO 17:42 → 3BNU 19:34
PROVIDERS: ADMIT Internal Medicine; ATTEND Internal Medicine

== ENCOUNTER 2020-05-10 08:48 | Inpatient (IN) ==
[2020-05-10] MEDS ORDERED: Ondansetron 4 MG/2 ML VIAL IVP PRN (15:33)
[2020-05-10] MEDS ORDERED: Dexamethasone Sodium Phos/PF 10 MG/ML VIAL IVP ONE (15:45)
[2020-05-10] MEDS ORDERED: *HR* Warfarin 2.5 MG TABLET PO SCH (15:45)
[2020-05-10] MEDS: *HR* Amiodarone 200 MG TABLET PO SCH (17:48)
[2020-05-10] MEDS ORDERED: Warfarin perPT PO PRN (18:00)
[2020-05-10] MEDS ORDERED: *HR* Warfarin 2.5 MG TABLET PO ONE (18:00)
[2020-05-10 18:09] LABS: Albumin 3.6 g/dL (3.5-5.7); Albumin/Globulin Ratio 0.9 (1.1-2.2); Bilirubin,Direct 0.1 mg/dL (0.0-0.2); Bilirubin,Indirect 0.3 mg/dL (0.0-1.0); Bilirubin,Total 0.4 mg/dL (0.3-1.0); Globulin 3.8 g/dL (2.4-3.5); Total Protein 7.4 g/dL (6.4-8.9)
[2020-05-10] MEDS: Metoprolol XL (24 HR) Succ 50 MG TAB.ER.24H PO SCH (20:19)
[2020-05-10] MEDS: Gabapentin 300 MG CAPSULE PO SCH (20:20)
[2020-05-10] MEDS ORDERED: *HR* Dextrose 50 % in Water (Vial) 50 ML VIAL IVP PRN (20:56)
[2020-05-10] MEDS ORDERED: D5% in Water 1,000 ML IVC PRN (20:56)
[2020-05-10] MEDS ORDERED: Dextrose Gel 15 GM/37.5 ML TUBE PO PRN ×2 (20:56)
[2020-05-10] MEDS ORDERED: Remdesivir 200 MG in 0.9 % Sodium Chloride 100 ML IVPB ONE (21:00)
[2020-05-10] MEDS: *HR* LORazepam 0.5 MG TABLET PO PRN (21:10)
[2020-05-10] MEDS: Insulin LISPRO 300 UNITS/3 ML VIAL SUBQ SCH (21:15)
[2020-05-11 03:35] LABS: Basophils % 0.1 %; Hematocrit 32.6 % (37.5-50.1); Hemoglobin 10.2 g/dL (12.9-16.9); Immature Granulocytes % 0.5 % (0-4); Lymphocytes # 0.2 K/mcL (0.6-4.6); Lymphocytes % 1.7 %; Mean Corpuscular HGB Conc 31.3 g/dL (31.6-35.5); Mean Corpuscular Hemoglobin 24.3 pg (28.0-33.3); Mean Corpuscular Volume 77.6 fL (83.0-100.0); Mean Platelet Volume 10.6 fL (9.4-12.4); Monocytes # 0.3 K/mcL (0.0-1.3); Monocytes % 2.3 %; Neutrophils # 12.6 K/mcL (1.6-8.9); Platelet Count 241 K/mcL (140-400); Segmented Neutrophils % 95.4 %; White Blood Count 13.2 K/mcL (4.3-11.1)
[2020-05-11 03:48] LABS: Prothrombin Time 44.8 Seconds (9.4-12.1)
[2020-05-11 03:53] LABS: Alanine Aminotransferase 61 Units/L (7-52); Albumin 3.2 g/dL (3.5-5.7); Albumin/Globulin Ratio 0.9 (1.1-2.2); Alkaline Phosphatase 85 Units/L (34-104); Aspartate Amino Transferase 83 Units/L (13-39); BUN/Creatinine Ratio 26 (6-26); Bilirubin,Total 0.4 mg/dL (0.3-1.0); Blood Urea Nitrogen 33 mg/dL (8-23); Calcium 9.2 mg/dL (8.6-10.3); Carbon Dioxide 25 mEq/L (23-29); Chloride 96 mEq/L (98-107); Globulin 3.5 g/dL (2.4-3.5); Glucose 285 mg/dL (70-105); Osmolality,Calculated 296 (280-300); Potassium 3.9 mEq/L (3.5-5.1); Sodium 134 mEq/L (136-145); Total Protein 6.7 g/dL (6.4-8.9); eGFR For African Americans > 60 (> 60); eGFR For Non-African Americans 55 (> 60)
[2020-05-11 03:54] LABS: Magnesium 1.8 mg/dL (1.6-2.6); Phosphorous 3.7 mg/dL (2.7-4.5)
[2020-05-11 03:55] LABS: Troponin I < 0.03 ng/mL (< 0.04)
[2020-05-11] MEDS: *HR* LORazepam 0.5 MG TABLET PO PRN ×3 (04:26→22:04)
[2020-05-11 07:36] LABS: Estimated Average Glucose 220 mg/dl; Hemoglobin A1C 9.3 %
[2020-05-11] MEDS: *HR* Amiodarone 200 MG TABLET PO SCH (08:08)
[2020-05-11] MEDS: Azithromycin 250 MG TABLET PO SCH (08:08)
[2020-05-11] MEDS: Gabapentin 300 MG CAPSULE PO SCH ×3 (08:10→20:19)
[2020-05-11] MEDS: Isosorbide MONOnitrate (24 HR) 60 MG TAB.ER.24H PO SCH (08:10)
[2020-05-11] MEDS: Metoprolol XL (24 HR) Succ 50 MG TAB.ER.24H PO SCH ×2 (08:10→20:20)
[2020-05-11] MEDS: Furosemide 40 MG TABLET PO SCH (08:10)
[2020-05-11] MEDS: Dexamethasone Sodium Phos/PF 10 MG/ML VIAL IVP SCH (08:10)
[2020-05-11] MEDS: Insulin LISPRO 300 UNITS/3 ML VIAL SUBQ SCH ×4 (08:12→22:37)
[2020-05-11] MEDS: cefTRIAXone 1,000 MG in Water for inj. (sterile) 10 ML IVP SCH (08:12)
[2020-05-11] MEDS ORDERED: Metoprolol XL (24 HR) Succ 50 MG TAB.ER.24H PO SCH (09:00)
[2020-05-11] MEDS ORDERED: *HR* Warfarin 5 MG TABLET PO SCH (15:37)
[2020-05-11] MEDS ORDERED: Insulin DETEMIR 100 UNIT/ML X5UNITS SUBQ SCH (21:00)
[2020-05-11] MEDS: Remdesivir 100 MG in 0.9 % Sodium Chloride 100 ML IVPB SCH (21:44)
[2020-05-11] MEDS: Acetaminophen 325 MG TABLET PO PRN (22:05)
[2020-05-12 06:04] LABS: Alanine Aminotransferase 85 Units/L (7-52); Albumin 3.2 g/dL (3.5-5.7); Alkaline Phosphatase 91 Units/L (34-104); Aspartate Amino Transferase 80 Units/L (13-39); BUN/Creatinine Ratio 34 (6-26); Bilirubin,Total 0.5 mg/dL (0.3-1.0); Blood Urea Nitrogen 43 mg/dL (8-23); Calcium 9.1 mg/dL (8.6-10.3); Carbon Dioxide 25 mEq/L (23-29); Chloride 98 mEq/L (98-107); Globulin 3.2 g/dL (2.4-3.5); Glucose 242 mg/dL (70-105); Osmolality,Calculated 299 (280-300); Potassium 3.5 mEq/L (3.5-5.1); Sodium 135 mEq/L (136-145); Total Protein 6.4 g/dL (6.4-8.9); eGFR For African Americans > 60 (> 60); eGFR For Non-African Americans 57 (> 60)
[2020-05-12 06:09] LABS: Hematocrit 31.8 % (37.5-50.1); Hemoglobin 10.6 g/dL (12.9-16.9); Mean Corpuscular HGB Conc 33.3 g/dL (31.6-35.5); Mean Corpuscular Hemoglobin 26.9 pg (28.0-33.3); Mean Corpuscular Volume 80.7 fL (83.0-100.0); Mean Platelet Volume 10.4 fL (9.4-12.4); Platelet Count 254 K/mcL (140-400); Red Blood Count 3.94 M/mcL (4.19-5.50); White Blood Count 14.2 K/mcL (4.3-11.1)
[2020-05-12 06:14] LABS: INR 4.9
[2020-05-12] MEDS: PARoxetine 10 MG TABLET PO SCH (09:38)
[2020-05-12] MEDS: Furosemide 40 MG TABLET PO SCH (09:39)
[2020-05-12] MEDS: Azithromycin 250 MG TABLET PO SCH (09:39)
[2020-05-12] MEDS: *HR* Amiodarone 200 MG TABLET PO SCH (09:39)
[2020-05-12] MEDS: Dexamethasone Sodium Phos/PF 10 MG/ML VIAL IVP SCH (09:40)
[2020-05-12] MEDS: Gabapentin 300 MG CAPSULE PO SCH ×3 (09:40→20:52)
[2020-05-12] MEDS: Metoprolol XL (24 HR) Succ 50 MG TAB.ER.24H PO SCH ×2 (09:40→20:52)
[2020-05-12] MEDS: cefTRIAXone 1,000 MG in Water for inj. (sterile) 10 ML IVP SCH (09:41)
[2020-05-12] MEDS: Insulin LISPRO 300 UNITS/3 ML VIAL SUBQ SCH ×4 (09:42→20:35)
[2020-05-12] MEDS: Isosorbide MONOnitrate (24 HR) 60 MG TAB.ER.24H PO SCH (09:55)
[2020-05-12] MEDS: Acetaminophen 325 MG TABLET PO PRN (09:59)
[2020-05-12] MEDS ORDERED: *HR* Phytonadione 5 MG TABLET PO ONE (12:47)
[2020-05-12] MEDS: *HR* LORazepam 0.5 MG TABLET PO PRN (20:52)
[2020-05-12] MEDS ORDERED: Insulin DETEMIR 100 UNIT/ML X5UNITS SUBQ SCH (21:00)
[2020-05-12] MEDS: Remdesivir 100 MG in 0.9 % Sodium Chloride 100 ML IVPB SCH (21:27)
[2020-05-13 06:44] LABS: Hemoglobin 12.4 g/dL (12.9-16.9); Mean Corpuscular HGB Conc 31.8 g/dL (31.6-35.5); Mean Corpuscular Hemoglobin 25.3 pg (28.0-33.3); Mean Corpuscular Volume 79.4 fL (83.0-100.0); Mean Platelet Volume 10.1 fL (9.4-12.4); Platelet Count 314 K/mcL (140-400); Red Blood Count 4.91 M/mcL (4.19-5.50); Red Cell Distribution Width 18.9 % (11.5-14.5); White Blood Count 20.9 K/mcL (4.3-11.1)
[2020-05-13 06:49] LABS: INR 2.1; Prothrombin Time 23.9 Seconds (9.4-12.1)
[2020-05-13] MEDS: Acetaminophen 325 MG TABLET PO PRN ×2 (06:50→20:51)
[2020-05-13 07:06] LABS: Alanine Aminotransferase 94 Units/L (7-52); Albumin 3.3 g/dL (3.5-5.7); Alkaline Phosphatase 116 Units/L (34-104); Aspartate Amino Transferase 74 Units/L (13-39); BUN/Creatinine Ratio 40 (6-26); Bilirubin,Total 0.5 mg/dL (0.3-1.0); Blood Urea Nitrogen 52 mg/dL (8-23); Calcium 9.4 mg/dL (8.6-10.3); Carbon Dioxide 25 mEq/L (23-29); Chloride 99 mEq/L (98-107); Globulin 3.4 g/dL (2.4-3.5); Glucose 235 mg/dL (70-105); Osmolality,Calculated 304 (280-300); Potassium 3.5 mEq/L (3.5-5.1); Sodium 136 mEq/L (136-145); Total Protein 6.7 g/dL (6.4-8.9); eGFR For African Americans > 60 (> 60); eGFR For Non-African Americans 55 (> 60)
[2020-05-13] MEDS: Insulin LISPRO 300 UNITS/3 ML VIAL SUBQ SCH ×4 (09:06→20:41)
[2020-05-13] MEDS: PARoxetine 10 MG TABLET PO SCH (09:08)
[2020-05-13] MEDS: Isosorbide MONOnitrate (24 HR) 60 MG TAB.ER.24H PO SCH (09:08)
[2020-05-13] MEDS: Gabapentin 300 MG CAPSULE PO SCH ×3 (09:08→20:49)
[2020-05-13] MEDS: Azithromycin 250 MG TABLET PO SCH (09:08)
[2020-05-13] MEDS: cefTRIAXone 2,000 MG in Water for inj. (sterile) 20 ML IVP SCH (09:09)
[2020-05-13] MEDS: Metoprolol XL (24 HR) Succ 50 MG TAB.ER.24H PO SCH ×2 (09:09→20:49)
[2020-05-13] MEDS: *HR* Amiodarone 200 MG TABLET PO SCH (09:09)
[2020-05-13] MEDS: Furosemide 40 MG TABLET PO SCH (09:09)
[2020-05-13] MEDS: Dexamethasone Sodium Phos/PF 10 MG/ML VIAL IVP SCH (09:10)
[2020-05-13 14:05] LABS: INR 1.6; Prothrombin Time 18.6 Seconds (9.4-12.1)
[2020-05-13] MEDS: *HR* LORazepam 0.5 MG TABLET PO PRN ×2 (15:01→20:51)
[2020-05-13] MEDS ORDERED: *HR* Warfarin 1 MG TABLET PO ONE (18:00)
[2020-05-13] MEDS: Furosemide 20 MG/2 ML VIAL IVP SCH (20:48)
[2020-05-13] MEDS: Insulin DETEMIR 100 UNIT/ML X5UNITS SUBQ SCH (20:49)
[2020-05-13] MEDS: Remdesivir 100 MG in 0.9 % Sodium Chloride 100 ML IVPB SCH (23:24)
[2020-05-14 06:43] LABS: Hematocrit 32.2 % (37.5-50.1); Mean Corpuscular HGB Conc 32.3 g/dL (31.6-35.5); Mean Corpuscular Hemoglobin 25.8 pg (28.0-33.3); Mean Corpuscular Volume 79.9 fL (83.0-100.0); Mean Platelet Volume 10.2 fL (9.4-12.4); Platelet Count 232 K/mcL (140-400); Red Blood Count 4.03 M/mcL (4.19-5.50); Red Cell Distribution Width 18.5 % (11.5-14.5); White Blood Count 15.3 K/mcL (4.3-11.1)
[2020-05-14 06:45] LABS: Hemoglobin 10.4 g/dL (12.9-16.9)
[2020-05-14 06:49] LABS: INR 1.5; Prothrombin Time 17.3 Seconds (9.4-12.1)
[2020-05-14 07:07] LABS: Alanine Aminotransferase 69 Units/L (7-52); Albumin 2.9 g/dL (3.5-5.7); Albumin/Globulin Ratio 0.9 (1.1-2.2); Alkaline Phosphatase 102 Units/L (34-104); Aspartate Amino Transferase 39 Units/L (13-39); BUN/Creatinine Ratio 41 (6-26); Bilirubin,Total 0.4 mg/dL (0.3-1.0); Blood Urea Nitrogen 50 mg/dL (8-23); Carbon Dioxide 26 mEq/L (23-29); Chloride 101 mEq/L (98-107); Globulin 3.1 g/dL (2.4-3.5); Glucose 189 mg/dL (70-105); Osmolality,Calculated 306 (280-300); Potassium 3.6 mEq/L (3.5-5.1); Sodium 139 mEq/L (136-145); eGFR For African Americans > 60 (> 60); eGFR For Non-African Americans 58 (> 60)
[2020-05-14] MEDS: Metoprolol XL (24 HR) Succ 50 MG TAB.ER.24H PO SCH ×2 (09:08→22:23)
[2020-05-14] MEDS: Gabapentin 300 MG CAPSULE PO SCH ×3 (09:08→22:21)
[2020-05-14] MEDS: Isosorbide MONOnitrate (24 HR) 60 MG TAB.ER.24H PO SCH (09:09)
[2020-05-14] MEDS: Azithromycin 250 MG TABLET PO SCH (09:09)
[2020-05-14] MEDS: *HR* Amiodarone 200 MG TABLET PO SCH (09:09)
[2020-05-14] MEDS: PARoxetine 10 MG TABLET PO SCH (09:09)
[2020-05-14] MEDS: *HR* LORazepam 0.5 MG TABLET PO PRN (09:09)
[2020-05-14] MEDS: cefTRIAXone 2,000 MG in Water for inj. (sterile) 20 ML IVP SCH (09:10)
[2020-05-14] MEDS: Dexamethasone Sodium Phos/PF 10 MG/ML VIAL IVP SCH (09:10)
[2020-05-14] MEDS: Furosemide 20 MG/2 ML VIAL IVP SCH ×2 (09:10→22:20)
[2020-05-14] MEDS: Insulin DETEMIR 100 UNIT/ML X5UNITS SUBQ SCH ×2 (09:11→22:21)
[2020-05-14] MEDS: Insulin LISPRO 300 UNITS/3 ML VIAL SUBQ SCH ×4 (09:12→22:18)
[2020-05-14] MEDS: *HR* Enoxaparin 80 MG/0.8 ML SYRINGE SQ SCH (17:34)
[2020-05-14] MEDS ORDERED: *HR* Warfarin 1 MG TABLET PO ONE (18:00)
[2020-05-14] MEDS: Remdesivir 100 MG in 0.9 % Sodium Chloride 100 ML IVPB SCH (22:22)
[2020-05-15] MEDS: *HR* Enoxaparin 80 MG/0.8 ML SYRINGE SQ SCH ×2 (06:58→17:13)
[2020-05-15 08:05] LABS: Hematocrit 34.7 % (37.5-50.1); Hemoglobin 11.1 g/dL (12.9-16.9); Mean Corpuscular Hemoglobin 25.8 pg (28.0-33.3); Mean Corpuscular Volume 80.5 fL (83.0-100.0); Mean Platelet Volume 10.3 fL (9.4-12.4); Platelet Count 221 K/mcL (140-400); Red Blood Count 4.31 M/mcL (4.19-5.50); Red Cell Distribution Width 19.1 % (11.5-14.5); White Blood Count 13.9 K/mcL (4.3-11.1)
[2020-05-15 08:19] LABS: BUN/Creatinine Ratio 45 (6-26); Blood Urea Nitrogen 52 mg/dL (8-23); Calcium 8.9 mg/dL (8.6-10.3); Carbon Dioxide 27 mEq/L (23-29); Chloride 104 mEq/L (98-107); Glucose 118 mg/dL (70-105); Osmolality,Calculated 307 (280-300); Potassium 3.4 mEq/L (3.5-5.1); Sodium 141 mEq/L (136-145); eGFR For African Americans > 60 (> 60); eGFR For Non-African Americans > 60 (> 60)
[2020-05-15] MEDS: Isosorbide MONOnitrate (24 HR) 60 MG TAB.ER.24H PO SCH (08:35)
[2020-05-15] MEDS: Gabapentin 300 MG CAPSULE PO SCH ×3 (08:35→22:16)
[2020-05-15] MEDS: cefTRIAXone 2,000 MG in Water for inj. (sterile) 20 ML IVP SCH (08:35)
[2020-05-15] MEDS: Metoprolol XL (24 HR) Succ 50 MG TAB.ER.24H PO SCH ×2 (08:36→22:16)
[2020-05-15] MEDS: *HR* Amiodarone 200 MG TABLET PO SCH (08:36)
[2020-05-15] MEDS: *HR* LORazepam 0.5 MG TABLET PO PRN ×2 (08:36→15:24)
[2020-05-15] MEDS: Furosemide 20 MG/2 ML VIAL IVP SCH ×2 (08:37→22:16)
[2020-05-15] MEDS: Dexamethasone Sodium Phos/PF 10 MG/ML VIAL IVP SCH (08:37)
[2020-05-15] MEDS: Insulin DETEMIR 100 UNIT/ML X5UNITS SUBQ SCH ×2 (08:41→22:18)
[2020-05-15] MEDS: PARoxetine 10 MG TABLET PO SCH (08:41)
[2020-05-15] MEDS: Insulin LISPRO 300 UNITS/3 ML VIAL SUBQ SCH ×4 (08:43→22:17)
[2020-05-15] MEDS ORDERED: lisinopriL 5 MG TABLET PO SCH (09:00)
[2020-05-16 01:35] LABS: Hematocrit 36.3 % (37.5-50.1); Hemoglobin 11.2 g/dL (12.9-16.9); Mean Corpuscular HGB Conc 30.9 g/dL (31.6-35.5); Mean Corpuscular Hemoglobin 24.7 pg (28.0-33.3); Mean Platelet Volume 10.7 fL (9.4-12.4); Platelet Count 242 K/mcL (140-400); Red Blood Count 4.54 M/mcL (4.19-5.50); Red Cell Distribution Width 18.6 % (11.5-14.5); White Blood Count 14.5 K/mcL (4.3-11.1)
[2020-05-16 01:51] LABS: BUN/Creatinine Ratio 43 (6-26); Blood Urea Nitrogen 54 mg/dL (8-23); Calcium 8.8 mg/dL (8.6-10.3); Carbon Dioxide 30 mEq/L (23-29); Chloride 101 mEq/L (98-107); Glucose 100 mg/dL (70-105); Osmolality,Calculated 309 (280-300); Potassium 3.4 mEq/L (3.5-5.1); Sodium 142 mEq/L (136-145); eGFR For African Americans > 60 (> 60); eGFR For Non-African Americans 57 (> 60)
[2020-05-16] MEDS: *HR* Enoxaparin 80 MG/0.8 ML SYRINGE SQ SCH ×2 (06:46→16:13)
[2020-05-16] MEDS: Gabapentin 300 MG CAPSULE PO SCH ×3 (07:49→22:15)
[2020-05-16] MEDS: *HR* Amiodarone 200 MG TABLET PO SCH (07:50)
[2020-05-16] MEDS: Dexamethasone Sodium Phos/PF 10 MG/ML VIAL IVP SCH (07:50)
[2020-05-16] MEDS: Furosemide 20 MG/2 ML VIAL IVP SCH ×2 (07:50→16:12)
[2020-05-16] MEDS: Metoprolol XL (24 HR) Succ 50 MG TAB.ER.24H PO SCH ×2 (07:50→22:14)
[2020-05-16] MEDS: PARoxetine 10 MG TABLET PO SCH (07:51)
[2020-05-16] MEDS: Isosorbide MONOnitrate (24 HR) 60 MG TAB.ER.24H PO SCH (07:51)
[2020-05-16] MEDS: Acetaminophen 325 MG TABLET PO PRN (07:51)
[2020-05-16] MEDS: Insulin LISPRO 300 UNITS/3 ML VIAL SUBQ SCH ×4 (07:53→22:15)
[2020-05-16] MEDS: Insulin DETEMIR 100 UNIT/ML X5UNITS SUBQ SCH ×2 (07:54→22:15)
[2020-05-16] MEDS ORDERED: Saline Nasal Spray 44 ML BOTTLE NS PRN (09:52)
[2020-05-16 13:12] LABS: Adenovirus F 40/41 PCR Not detected (Not detect); Astrovirus PCR Not detected (Not detect); C.difficile Toxin A/B Gene PCR Not detected (Not detect); Campylobacter by PCR Not detected (Not detect); Cryptosporidium by PCR Not detected (Not detect); Cyclospora cayetanensis PCR Not detected (Not detect); E. coli O157 by PCR Not detected (Not detect); Entamoeba histolytica PCR Not detected (Not detect); Enteroaggregative E.coli(EAEC) Not detected (Not detect); Enteropathogenic E.coli(EPEC) Not detected (Not detect); Enterotoxigenic E.coli (ETEC) Not detected (Not detect); Giardia lamblia PCR Not detected (Not detect); Norovirus GI/GII PCR Not detected (Not detect); Plesiomonas shigelloides PCR Not detected (Not detect); Rotavirus A PCR Not detected (Not detect); Salmonella PCR Not detected (Not detect); Sapovirus PCR Not detected (Not detect); Shig/EnteroinvasiveE coli EIEC Not detected (Not detect); Shigalike tox-prod E coli STEC Not detected (Not detect); Vibrio PCR Not detected (Not detect); Vibrio cholerae PCR Not detected (Not detect); Yersinia enterocolitica PCR Not detected (Not detect)
[2020-05-17 05:25] LABS: Hematocrit 38.3 % (37.5-50.1); Hemoglobin 11.6 g/dL (12.9-16.9); Mean Corpuscular HGB Conc 30.3 g/dL (31.6-35.5); Mean Corpuscular Hemoglobin 23.8 pg (28.0-33.3); Mean Corpuscular Volume 78.5 fL (83.0-100.0); Mean Platelet Volume 10.4 fL (9.4-12.4); Platelet Count 240 K/mcL (140-400); Red Blood Count 4.88 M/mcL (4.19-5.50); Red Cell Distribution Width 17.6 % (11.5-14.5); White Blood Count 14.7 K/mcL (4.3-11.1)
[2020-05-17 05:45] LABS: Magnesium 2.3 mg/dL (1.6-2.6)
[2020-05-17] MEDS: *HR* Enoxaparin 80 MG/0.8 ML SYRINGE SQ SCH ×2 (06:43→17:06)
[2020-05-17 07:45] LABS: BUN/Creatinine Ratio 46 (6-26); Blood Urea Nitrogen 58 mg/dL (8-23); Carbon Dioxide 30 mEq/L (23-29); Chloride 100 mEq/L (98-107); Glucose 121 mg/dL (70-105); Osmolality,Calculated 309 (280-300); Potassium 4.1 mEq/L (3.5-5.1); Sodium 141 mEq/L (136-145); eGFR For African Americans > 60 (> 60); eGFR For Non-African Americans 56 (> 60)
[2020-05-17] MEDS: PARoxetine 10 MG TABLET PO SCH (08:19)
[2020-05-17] MEDS: Metoprolol XL (24 HR) Succ 50 MG TAB.ER.24H PO SCH ×2 (08:19→20:51)
[2020-05-17] MEDS: Gabapentin 300 MG CAPSULE PO SCH ×3 (08:19→20:51)
[2020-05-17] MEDS: Dexamethasone Sodium Phos/PF 10 MG/ML VIAL IVP SCH (08:19)
[2020-05-17] MEDS: Isosorbide MONOnitrate (24 HR) 60 MG TAB.ER.24H PO SCH (08:19)
[2020-05-17] MEDS: Cholecalciferol (D-3) 1,000 UNIT (25MCG) TABLET PO SCH (08:19)
[2020-05-17] MEDS: *HR* Amiodarone 200 MG TABLET PO SCH (08:20)
[2020-05-17] MEDS: Furosemide 20 MG/2 ML VIAL IVP SCH ×2 (08:20→17:06)
[2020-05-17] MEDS: Insulin DETEMIR 100 UNIT/ML X5UNITS SUBQ SCH ×2 (08:20→20:54)
[2020-05-17] MEDS: Insulin LISPRO 300 UNITS/3 ML VIAL SUBQ SCH ×4 (08:21→20:53)
[2020-05-17] MEDS: Acetaminophen 325 MG TABLET PO PRN (08:36)
[2020-05-18] MEDS: *HR* LORazepam 0.5 MG TABLET PO PRN ×2 (02:52→22:03)
[2020-05-18] MEDS: *HR* Enoxaparin 80 MG/0.8 ML SYRINGE SQ SCH ×2 (04:28→16:24)
[2020-05-18] MEDS ORDERED: Dexmedetomidine HCl 400 MCG/100 ML MLS IVC SCH (05:30)
[2020-05-18] MEDS ORDERED: 0.9 % Sodium Chloride 500 ML ONE (06:46)
[2020-05-18] MEDS: Insulin LISPRO 300 UNITS/3 ML VIAL SUBQ SCH ×4 (07:44→20:17)
[2020-05-18] MEDS: Acetaminophen 325 MG TABLET PO PRN (07:46)
[2020-05-18] MEDS: *HR* Amiodarone 200 MG TABLET PO SCH (07:46)
[2020-05-18] MEDS: Dexamethasone Sodium Phos/PF 10 MG/ML VIAL IVP SCH (07:46)
[2020-05-18] MEDS: Cholecalciferol (D-3) 1,000 UNIT (25MCG) TABLET PO SCH (07:46)
[2020-05-18] MEDS: Gabapentin 300 MG CAPSULE PO SCH ×4 (07:46→20:15)
[2020-05-18] MEDS: Furosemide 20 MG/2 ML VIAL IVP SCH (07:46)
[2020-05-18] MEDS: PARoxetine 10 MG TABLET PO SCH (07:47)
[2020-05-18] MEDS: Isosorbide MONOnitrate (24 HR) 60 MG TAB.ER.24H PO SCH (08:07)
[2020-05-18] MEDS: Metoprolol XL (24 HR) Succ 50 MG TAB.ER.24H PO SCH ×2 (08:08→20:15)
[2020-05-18] MEDS: Insulin DETEMIR 100 UNIT/ML X5UNITS SUBQ SCH (08:08)
[2020-05-18 09:56] LABS: Hematocrit 42.1 % (37.5-50.1); Hemoglobin 12.6 g/dL (12.9-16.9); Mean Corpuscular HGB Conc 29.9 g/dL (31.6-35.5); Mean Corpuscular Hemoglobin 24.3 pg (28.0-33.3); Mean Corpuscular Volume 81.1 fL (83.0-100.0); Mean Platelet Volume 11.5 fL (9.4-12.4); Platelet Count 200 K/mcL (140-400); Red Blood Count 5.19 M/mcL (4.19-5.50); Red Cell Distribution Width 18.2 % (11.5-14.5); White Blood Count 17.3 K/mcL (4.3-11.1)
[2020-05-18 10:02] LABS: BUN/Creatinine Ratio 44 (6-26); Blood Urea Nitrogen 57 mg/dL (8-23); Carbon Dioxide 28 mEq/L (23-29); Chloride 98 mEq/L (98-107); Glucose 169 mg/dL (70-105); Osmolality,Calculated 302 (280-300); Potassium 3.8 mEq/L (3.5-5.1); Sodium 136 mEq/L (136-145); eGFR For African Americans > 60 (> 60); eGFR For Non-African Americans 55 (> 60)
[2020-05-18] MEDS ORDERED: Furosemide 40 MG TABLET PO SCH (17:00)
[2020-05-18] MEDS ORDERED: Melatonin 3 MG TABLET PO ONE (23:00)
[2020-05-19] MEDS: *HR* Enoxaparin 80 MG/0.8 ML SYRINGE SQ SCH ×2 (05:30→17:20)
[2020-05-19 06:06] LABS: Hematocrit 39.9 % (37.5-50.1); Hemoglobin 12.4 g/dL (12.9-16.9); Mean Corpuscular HGB Conc 31.1 g/dL (31.6-35.5); Mean Corpuscular Volume 77.2 fL (83.0-100.0); Mean Platelet Volume 10.6 fL (9.4-12.4); Platelet Count 251 K/mcL (140-400); Red Blood Count 5.17 M/mcL (4.19-5.50); Red Cell Distribution Width 17.6 % (11.5-14.5); White Blood Count 17.6 K/mcL (4.3-11.1)
[2020-05-19 06:25] LABS: BUN/Creatinine Ratio 43 (6-26); Blood Urea Nitrogen 58 mg/dL (8-23); Calcium 8.8 mg/dL (8.6-10.3); Carbon Dioxide 26 mEq/L (23-29); Chloride 96 mEq/L (98-107); Glucose 310 mg/dL (70-105); Osmolality,Calculated 304 (280-300); Potassium 4.3 mEq/L (3.5-5.1); Sodium 133 mEq/L (136-145); eGFR For African Americans > 60 (> 60); eGFR For Non-African Americans 52 (> 60)
[2020-05-19] MEDS: Dexamethasone Sodium Phos/PF 10 MG/ML VIAL IVP SCH (08:28)
[2020-05-19] MEDS: Insulin LISPRO 300 UNITS/3 ML VIAL SUBQ SCH ×4 (08:28→22:08)
[2020-05-19] MEDS: Isosorbide MONOnitrate (24 HR) 60 MG TAB.ER.24H PO SCH (08:28)
[2020-05-19] MEDS: Cholecalciferol (D-3) 1,000 UNIT (25MCG) TABLET PO SCH (08:29)
[2020-05-19] MEDS: Metoprolol XL (24 HR) Succ 50 MG TAB.ER.24H PO SCH ×2 (08:29→20:04)
[2020-05-19] MEDS: Gabapentin 300 MG CAPSULE PO SCH ×3 (08:29→19:52)
[2020-05-19] MEDS: Acetaminophen 325 MG TABLET PO PRN (08:29)
[2020-05-19] MEDS: PARoxetine 10 MG TABLET PO SCH (08:29)
[2020-05-19] MEDS: *HR* Amiodarone 200 MG TABLET PO SCH (08:29)
[2020-05-19] MEDS: Insulin DETEMIR 100 UNIT/ML X5UNITS SUBQ SCH (08:34)
[2020-05-19] MEDS: *HR* LORazepam 0.5 MG TABLET PO PRN (15:29)
[2020-05-20] MEDS: *HR* Enoxaparin 80 MG/0.8 ML SYRINGE SQ SCH ×2 (05:27→17:43)
[2020-05-20 05:31] LABS: Hemoglobin 11.6 g/dL (12.9-16.9); Mean Corpuscular HGB Conc 31.4 g/dL (31.6-35.5); Mean Corpuscular Hemoglobin 24.1 pg (28.0-33.3); Mean Corpuscular Volume 76.9 fL (83.0-100.0); Mean Platelet Volume 11.1 fL (9.4-12.4); Platelet Count 260 K/mcL (140-400); Red Blood Count 4.81 M/mcL (4.19-5.50); White Blood Count 18.4 K/mcL (4.3-11.1)
[2020-05-20 05:51] LABS: BUN/Creatinine Ratio 44 (6-26); Blood Urea Nitrogen 52 mg/dL (8-23); Calcium 8.6 mg/dL (8.6-10.3); Carbon Dioxide 29 mEq/L (23-29); Chloride 98 mEq/L (98-107); Glucose 137 mg/dL (70-105); Osmolality,Calculated 292 (280-300); Potassium 4.5 mEq/L (3.5-5.1); Sodium 133 mEq/L (136-145); eGFR For African Americans > 60 (> 60); eGFR For Non-African Americans > 60 (> 60)
[2020-05-20] MEDS: Gabapentin 300 MG CAPSULE PO SCH ×3 (08:13→21:57)
[2020-05-20] MEDS: PARoxetine 10 MG TABLET PO SCH (08:13)
[2020-05-20] MEDS: Metoprolol XL (24 HR) Succ 50 MG TAB.ER.24H PO SCH ×2 (08:13→21:57)
[2020-05-20] MEDS: *HR* Amiodarone 200 MG TABLET PO SCH (08:14)
[2020-05-20] MEDS: Cholecalciferol (D-3) 1,000 UNIT (25MCG) TABLET PO SCH (08:14)
[2020-05-20] MEDS: Dexamethasone Sodium Phos/PF 10 MG/ML VIAL IVP SCH (08:14)
[2020-05-20] MEDS: Insulin DETEMIR 100 UNIT/ML X5UNITS SUBQ SCH (08:15)
[2020-05-20] MEDS: Isosorbide MONOnitrate (24 HR) 60 MG TAB.ER.24H PO SCH (08:17)
[2020-05-20] MEDS: Insulin LISPRO 300 UNITS/3 ML VIAL SUBQ SCH ×4 (10:08→21:55)
[2020-05-20] MEDS: *HR* LORazepam 0.5 MG TABLET PO PRN ×2 (11:51→21:57)
[2020-05-20] MEDS: Melatonin 3 MG TABLET PO SCH (21:53)
[2020-05-21] MEDS: *HR* Enoxaparin 80 MG/0.8 ML SYRINGE SQ SCH ×2 (05:56→17:10)
[2020-05-21 06:49] LABS: Basophils % 0.1 %; Hematocrit 36.8 % (37.5-50.1); Hemoglobin 11.5 g/dL (12.9-16.9); Immature Granulocytes % 1.3 % (0-4); Lymphocytes # 0.5 K/mcL (0.6-4.6); Lymphocytes % 2.5 %; Mean Corpuscular HGB Conc 31.3 g/dL (31.6-35.5); Mean Corpuscular Hemoglobin 24.1 pg (28.0-33.3); Mean Corpuscular Volume 77.1 fL (83.0-100.0); Mean Platelet Volume 10.8 fL (9.4-12.4); Monocytes # 0.5 K/mcL (0.0-1.3); Monocytes % 2.4 %; Neutrophils # 18.6 K/mcL (1.6-8.9); Platelet Count 253 K/mcL (140-400); Red Blood Count 4.77 M/mcL (4.19-5.50); Red Cell Distribution Width 17.2 % (11.5-14.5); Segmented Neutrophils % 93.7 %; White Blood Count 19.9 K/mcL (4.3-11.1)
[2020-05-21] MEDS: Insulin LISPRO 300 UNITS/3 ML VIAL SUBQ SCH ×5 (07:55→20:28)
[2020-05-21] MEDS: PARoxetine 10 MG TABLET PO SCH (08:00)
[2020-05-21] MEDS: Gabapentin 300 MG CAPSULE PO SCH ×3 (08:00→20:09)
[2020-05-21] MEDS: Insulin DETEMIR 100 UNIT/ML X5UNITS SUBQ SCH (08:00)
[2020-05-21] MEDS: Isosorbide MONOnitrate (24 HR) 60 MG TAB.ER.24H PO SCH (08:00)
[2020-05-21] MEDS: Dexamethasone Sodium Phos/PF 10 MG/ML VIAL IVP SCH (08:00)
[2020-05-21] MEDS: Cholecalciferol (D-3) 1,000 UNIT (25MCG) TABLET PO SCH (08:00)
[2020-05-21] MEDS: *HR* Amiodarone 200 MG TABLET PO SCH (08:01)
[2020-05-21] MEDS: Metoprolol XL (24 HR) Succ 50 MG TAB.ER.24H PO SCH ×2 (08:01→20:09)
[2020-05-21 08:17] LABS: BUN/Creatinine Ratio 39 (6-26); Blood Urea Nitrogen 43 mg/dL (8-23); Calcium 8.5 mg/dL (8.6-10.3); Carbon Dioxide 27 mEq/L (23-29); Chloride 99 mEq/L (98-107); Glucose 176 mg/dL (70-105); Lactate Dehydrogenase 400 Units/L (140-271); Magnesium 2.1 mg/dL (1.6-2.6); Osmolality,Calculated 295 (280-300); Phosphorous 3.4 mg/dL (2.7-4.5); Sodium 135 mEq/L (136-145); eGFR For African Americans > 60 (> 60); eGFR For Non-African Americans > 60 (> 60)
[2020-05-21 08:31] LABS: Ferritin 121 ng/mL (20-250)
[2020-05-21] MEDS: Melatonin 3 MG TABLET PO SCH (20:09)
[2020-05-21] MEDS: *HR* LORazepam 0.5 MG TABLET PO PRN (22:26)
[2020-05-22 04:09] LABS: ABG Base Excess 3 mEq/L (-2 to 3); ABG HCO3 28 mEq/L (21-27); ABG Oxygen Saturation 85 % (95-98); ABG PCO2 41 mmHg (35-45); ABG PH 7.44 pH Units (7.32-7.45); ABG PO2 48 mmHg (85-104); ABG TCO2 29 mEq/L (20-26)
[2020-05-22] MEDS: *HR* Enoxaparin 80 MG/0.8 ML SYRINGE SQ SCH ×2 (06:28→17:59)
[2020-05-22 06:33] LABS: Basophils % 0.1 %; Hematocrit 37.7 % (37.5-50.1); Hemoglobin 11.7 g/dL (12.9-16.9); Immature Granulocytes % 0.9 % (0-4); Lymphocytes # 0.4 K/mcL (0.6-4.6); Lymphocytes % 2.2 %; Mean Corpuscular Hemoglobin 24.5 pg (28.0-33.3); Mean Platelet Volume 11.1 fL (9.4-12.4); Monocytes # 0.5 K/mcL (0.0-1.3); Monocytes % 3.1 %; Neutrophils # 16.3 K/mcL (1.6-8.9); Platelet Count 268 K/mcL (140-400); Red Blood Count 4.77 M/mcL (4.19-5.50); Red Cell Distribution Width 17.3 % (11.5-14.5); Segmented Neutrophils % 93.7 %; White Blood Count 17.4 K/mcL (4.3-11.1)
[2020-05-22 06:41] LABS: Magnesium 2.1 mg/dL (1.6-2.6); Phosphorous 3.3 mg/dL (2.7-4.5)
[2020-05-22] MEDS: Gabapentin 300 MG CAPSULE PO SCH ×3 (08:37→20:16)
[2020-05-22] MEDS: Metoprolol XL (24 HR) Succ 50 MG TAB.ER.24H PO SCH ×2 (08:37→20:16)
[2020-05-22] MEDS: *HR* Amiodarone 200 MG TABLET PO SCH (08:37)
[2020-05-22] MEDS: Cholecalciferol (D-3) 1,000 UNIT (25MCG) TABLET PO SCH (08:37)
[2020-05-22] MEDS: PARoxetine 10 MG TABLET PO SCH (08:37)
[2020-05-22] MEDS: Isosorbide MONOnitrate (24 HR) 60 MG TAB.ER.24H PO SCH (08:37)
[2020-05-22] MEDS: Dexamethasone Sodium Phos/PF 10 MG/ML VIAL IVP SCH (08:38)
[2020-05-22] MEDS: Insulin LISPRO 300 UNITS/3 ML VIAL SUBQ SCH ×7 (08:39→20:17)
[2020-05-22] MEDS: Insulin DETEMIR 100 UNIT/ML X5UNITS SUBQ SCH (08:41)
[2020-05-22] MEDS: Melatonin 3 MG TABLET PO SCH (20:16)
[2020-05-23] MEDS: *HR* Enoxaparin 80 MG/0.8 ML SYRINGE SQ SCH ×2 (06:15→17:29)
[2020-05-23 08:07] LABS: Basophils % 0.1 %; Hematocrit 36.3 % (37.5-50.1); Hemoglobin 11.4 g/dL (12.9-16.9); Immature Granulocytes % 1.2 % (0-4); Lymphocytes # 0.5 K/mcL (0.6-4.6); Lymphocytes % 2.6 %; Mean Corpuscular HGB Conc 31.4 g/dL (31.6-35.5); Mean Corpuscular Hemoglobin 24.4 pg (28.0-33.3); Mean Corpuscular Volume 77.6 fL (83.0-100.0); Mean Platelet Volume 10.7 fL (9.4-12.4); Monocytes # 0.6 K/mcL (0.0-1.3); Monocytes % 3.5 %; Neutrophils # 16.1 K/mcL (1.6-8.9); Platelet Count 252 K/mcL (140-400); Red Blood Count 4.68 M/mcL (4.19-5.50); Red Cell Distribution Width 17.4 % (11.5-14.5); Segmented Neutrophils % 92.6 %; White Blood Count 17.4 K/mcL (4.3-11.1)
[2020-05-23 08:16] LABS: Alanine Aminotransferase 53 Units/L (7-52); Albumin 2.6 g/dL (3.5-5.7); Alkaline Phosphatase 96 Units/L (34-104); Aspartate Amino Transferase 22 Units/L (13-39); BUN/Creatinine Ratio 38 (6-26); Bilirubin,Total 0.4 mg/dL (0.3-1.0); Blood Urea Nitrogen 40 mg/dL (8-23); Calcium 8.7 mg/dL (8.6-10.3); Carbon Dioxide 30 mEq/L (23-29); Chloride 100 mEq/L (98-107); Globulin 2.6 g/dL (2.4-3.5); Glucose 190 mg/dL (70-105); Magnesium 2.1 mg/dL (1.6-2.6); Osmolality,Calculated 293 (280-300); Phosphorous 2.9 mg/dL (2.7-4.5); Potassium 4.9 mEq/L (3.5-5.1); Sodium 134 mEq/L (136-145); Total Protein 5.2 g/dL (6.4-8.9); eGFR For African Americans > 60 (> 60); eGFR For Non-African Americans > 60 (> 60)
[2020-05-23] MEDS: *HR* Amiodarone 200 MG TABLET PO SCH (08:41)
[2020-05-23] MEDS: Isosorbide MONOnitrate (24 HR) 60 MG TAB.ER.24H PO SCH (08:41)
[2020-05-23] MEDS: Gabapentin 300 MG CAPSULE PO SCH ×3 (08:41→20:34)
[2020-05-23] MEDS: Metoprolol XL (24 HR) Succ 50 MG TAB.ER.24H PO SCH ×2 (08:41→20:39)
[2020-05-23] MEDS: Cholecalciferol (D-3) 1,000 UNIT (25MCG) TABLET PO SCH (08:41)
[2020-05-23] MEDS: PARoxetine 10 MG TABLET PO SCH (08:41)
[2020-05-23] MEDS: Dexamethasone Sodium Phos/PF 10 MG/ML VIAL IVP SCH (08:41)
[2020-05-23] MEDS: Furosemide 20 MG/2 ML VIAL IVP SCH (08:42)
[2020-05-23] MEDS: Insulin DETEMIR 100 UNIT/ML X5UNITS SUBQ SCH ×2 (08:43→21:19)
[2020-05-23] MEDS: Insulin LISPRO 300 UNITS/3 ML VIAL SUBQ SCH ×7 (08:46→20:40)
[2020-05-23] MEDS: Melatonin 3 MG TABLET PO SCH (20:34)
[2020-05-24] MEDS: *HR* Enoxaparin 80 MG/0.8 ML SYRINGE SQ SCH ×2 (06:27→17:37)
[2020-05-24] MEDS: Insulin LISPRO 300 UNITS/3 ML VIAL SUBQ SCH ×7 (09:08→21:47)
[2020-05-24] MEDS: Insulin DETEMIR 100 UNIT/ML X5UNITS SUBQ SCH ×2 (09:08→21:48)
[2020-05-24] MEDS: Dexamethasone Sodium Phos/PF 10 MG/ML VIAL IVP SCH (09:10)
[2020-05-24] MEDS: Metoprolol XL (24 HR) Succ 50 MG TAB.ER.24H PO SCH ×2 (09:11→21:48)
[2020-05-24] MEDS: PARoxetine 10 MG TABLET PO SCH (09:12)
[2020-05-24] MEDS: Cholecalciferol (D-3) 1,000 UNIT (25MCG) TABLET PO SCH (09:12)
[2020-05-24] MEDS: *HR* Amiodarone 200 MG TABLET PO SCH (09:12)
[2020-05-24] MEDS: Isosorbide MONOnitrate (24 HR) 60 MG TAB.ER.24H PO SCH (09:12)
[2020-05-24] MEDS: Furosemide 20 MG/2 ML VIAL IVP SCH (09:13)
[2020-05-24] MEDS: Gabapentin 300 MG CAPSULE PO SCH ×3 (09:13→21:48)
[2020-05-24 10:01] LABS: BUN/Creatinine Ratio 39 (6-26); Blood Urea Nitrogen 39 mg/dL (8-23); Calcium 8.8 mg/dL (8.6-10.3); Carbon Dioxide 31 mEq/L (23-29); Chloride 99 mEq/L (98-107); Glucose 129 mg/dL (70-105); Osmolality,Calculated 291 (280-300); Phosphorous 3.1 mg/dL (2.7-4.5); Potassium 4.6 mEq/L (3.5-5.1); Sodium 135 mEq/L (136-145); eGFR For African Americans > 60 (> 60); eGFR For Non-African Americans > 60 (> 60)
[2020-05-24] MEDS: *HR* LORazepam 0.5 MG TABLET PO PRN ×2 (12:21→21:48)
[2020-05-24] MEDS ORDERED: *HR* Warfarin 1 MG TABLET PO ONE (18:00)
[2020-05-24] MEDS: Melatonin 3 MG TABLET PO SCH (21:49)
[2020-05-24] MEDS: Warfarin perPT PO SCH (21:50)
[2020-05-25 04:58] LABS: Basophils % 0.1 %; Hematocrit 33.7 % (37.5-50.1); Hemoglobin 10.8 g/dL (12.9-16.9); Immature Granulocytes % 1.1 % (0-4); Lymphocytes # 0.5 K/mcL (0.6-4.6); Lymphocytes % 3.8 %; Mean Corpuscular Hemoglobin 24.9 pg (28.0-33.3); Mean Corpuscular Volume 77.8 fL (83.0-100.0); Mean Platelet Volume 10.7 fL (9.4-12.4); Monocytes # 0.7 K/mcL (0.0-1.3); Monocytes % 4.7 %; Neutrophils # 12.9 K/mcL (1.6-8.9); Platelet Count 232 K/mcL (140-400); Red Blood Count 4.33 M/mcL (4.19-5.50); Red Cell Distribution Width 17.4 % (11.5-14.5); Segmented Neutrophils % 90.3 %; White Blood Count 14.3 K/mcL (4.3-11.1)
[2020-05-25 05:04] LABS: Prothrombin Time 11.6 Seconds (9.4-12.1)
[2020-05-25 05:19] LABS: BUN/Creatinine Ratio 46 (6-26); Blood Urea Nitrogen 43 mg/dL (8-23); Calcium 8.4 mg/dL (8.6-10.3); Carbon Dioxide 29 mEq/L (23-29); Chloride 97 mEq/L (98-107); Glucose 209 mg/dL (70-105); Magnesium 1.9 mg/dL (1.6-2.6); Osmolality,Calculated 289 (280-300); Potassium 4.7 mEq/L (3.5-5.1); Sodium 131 mEq/L (136-145); eGFR For African Americans > 60 (> 60); eGFR For Non-African Americans > 60 (> 60)
[2020-05-25] MEDS: *HR* Enoxaparin 80 MG/0.8 ML SYRINGE SQ SCH ×2 (05:47→17:19)
[2020-05-25] MEDS: Insulin LISPRO 300 UNITS/3 ML VIAL SUBQ SCH ×7 (08:00→21:15)
[2020-05-25] MEDS: Metoprolol XL (24 HR) Succ 50 MG TAB.ER.24H PO SCH ×2 (08:02→21:13)
[2020-05-25] MEDS: PARoxetine 10 MG TABLET PO SCH (08:02)
[2020-05-25] MEDS: *HR* Amiodarone 200 MG TABLET PO SCH (08:02)
[2020-05-25] MEDS: Furosemide 20 MG TABLET PO SCH (08:02)
[2020-05-25] MEDS: Gabapentin 300 MG CAPSULE PO SCH ×3 (08:02→21:13)
[2020-05-25] MEDS: Isosorbide MONOnitrate (24 HR) 60 MG TAB.ER.24H PO SCH (08:02)
[2020-05-25] MEDS: Cholecalciferol (D-3) 1,000 UNIT (25MCG) TABLET PO SCH (08:02)
[2020-05-25] MEDS: Dexamethasone Sodium Phos/PF 10 MG/ML VIAL IVP SCH (08:03)
[2020-05-25] MEDS: Insulin DETEMIR 100 UNIT/ML X5UNITS SUBQ SCH ×2 (08:06→21:13)
[2020-05-25] MEDS: *HR* LORazepam 0.5 MG TABLET PO PRN (12:17)
[2020-05-25] MEDS: Warfarin perPT PO SCH (17:55)
[2020-05-25] MEDS ORDERED: *HR* Warfarin 2 MG TABLET PO ONE (18:00)
[2020-05-25] MEDS: Melatonin 3 MG TABLET PO SCH (21:13)
[2020-05-26 02:59] LABS: Basophils % 0.1 %; Eosinophils % 0.1 %; Hematocrit 35.8 % (37.5-50.1); Hemoglobin 11.2 g/dL (12.9-16.9); Immature Granulocytes % 1.3 % (0-4); Lymphocytes # 0.5 K/mcL (0.6-4.6); Lymphocytes % 3.5 %; Mean Corpuscular HGB Conc 31.3 g/dL (31.6-35.5); Mean Corpuscular Hemoglobin 24.6 pg (28.0-33.3); Mean Corpuscular Volume 78.5 fL (83.0-100.0); Mean Platelet Volume 10.8 fL (9.4-12.4); Monocytes # 0.8 K/mcL (0.0-1.3); Monocytes % 5.7 %; Neutrophils # 13.1 K/mcL (1.6-8.9); Platelet Count 241 K/mcL (140-400); Red Blood Count 4.56 M/mcL (4.19-5.50); Red Cell Distribution Width 17.8 % (11.5-14.5); Segmented Neutrophils % 89.3 %; White Blood Count 14.6 K/mcL (4.3-11.1)
[2020-05-26 03:06] LABS: Prothrombin Time 11.1 Seconds (9.4-12.1)
[2020-05-26 03:19] LABS: Alanine Aminotransferase 49 Units/L (7-52); Albumin 2.7 g/dL (3.5-5.7); Albumin/Globulin Ratio 1.1 (1.1-2.2); Alkaline Phosphatase 98 Units/L (34-104); Aspartate Amino Transferase 21 Units/L (13-39); BUN/Creatinine Ratio 45 (6-26); Bilirubin,Total 0.3 mg/dL (0.3-1.0); Blood Urea Nitrogen 46 mg/dL (8-23); Calcium 8.6 mg/dL (8.6-10.3); Carbon Dioxide 30 mEq/L (23-29); Chloride 98 mEq/L (98-107); Globulin 2.4 g/dL (2.4-3.5); Glucose 223 mg/dL (70-105); Osmolality,Calculated 297 (280-300); Phosphorous 2.7 mg/dL (2.7-4.5); Potassium 4.8 mEq/L (3.5-5.1); Sodium 134 mEq/L (136-145); Total Protein 5.1 g/dL (6.4-8.9); eGFR For African Americans > 60 (> 60); eGFR For Non-African Americans > 60 (> 60)
[2020-05-26] MEDS: *HR* Enoxaparin 80 MG/0.8 ML SYRINGE SQ SCH ×2 (06:08→17:50)
[2020-05-26] MEDS: Metoprolol XL (24 HR) Succ 50 MG TAB.ER.24H PO SCH ×2 (08:02→20:07)
[2020-05-26] MEDS: Gabapentin 300 MG CAPSULE PO SCH ×3 (08:03→20:07)
[2020-05-26] MEDS: Cholecalciferol (D-3) 1,000 UNIT (25MCG) TABLET PO SCH (08:03)
[2020-05-26] MEDS: Isosorbide MONOnitrate (24 HR) 60 MG TAB.ER.24H PO SCH (08:03)
[2020-05-26] MEDS: Dexamethasone Sodium Phos/PF 10 MG/ML VIAL IVP SCH (08:03)
[2020-05-26] MEDS: *HR* Amiodarone 200 MG TABLET PO SCH (08:03)
[2020-05-26] MEDS: PARoxetine 10 MG TABLET PO SCH (08:03)
[2020-05-26] MEDS: Furosemide 20 MG TABLET PO SCH (08:03)
[2020-05-26] MEDS: Insulin DETEMIR 100 UNIT/ML X5UNITS SUBQ SCH ×2 (08:04→21:39)
[2020-05-26] MEDS: Insulin LISPRO 300 UNITS/3 ML VIAL SUBQ SCH ×6 (08:07→17:52)
[2020-05-26] MEDS ORDERED: Insulin LISPRO 300 UNITS/3 ML VIAL SUBQ SCH (15:32)
[2020-05-26] MEDS: Warfarin perPT PO SCH (17:49)
[2020-05-26] MEDS ORDERED: *HR* Warfarin 2 MG TABLET PO ONE (18:00)
[2020-05-26] MEDS: Melatonin 3 MG TABLET PO SCH (20:07)
[2020-05-27 03:10] LABS: Fibrinogen 223 mg/dL (169-393); Prothrombin Time 11.7 Seconds (9.4-12.1)
[2020-05-27 03:13] LABS: D-Dimer 2206 ng/mLFEU (0-500)
[2020-05-27 03:26] LABS: Alanine Aminotransferase 51 Units/L (7-52); Albumin 2.5 g/dL (3.5-5.7); Albumin/Globulin Ratio 1.1 (1.1-2.2); Alkaline Phosphatase 81 Units/L (34-104); Aspartate Amino Transferase 23 Units/L (13-39); BUN/Creatinine Ratio 43 (6-26); Bilirubin,Total 0.3 mg/dL (0.3-1.0); Blood Urea Nitrogen 44 mg/dL (8-23); Calcium 8.4 mg/dL (8.6-10.3); Carbon Dioxide 30 mEq/L (23-29); Chloride 100 mEq/L (98-107); Globulin 2.3 g/dL (2.4-3.5); Glucose 143 mg/dL (70-105); Lactate Dehydrogenase 232 Units/L (140-271); Osmolality,Calculated 294 (280-300); Phosphorous 3.4 mg/dL (2.7-4.5); Potassium 4.5 mEq/L (3.5-5.1); Sodium 135 mEq/L (136-145); Total Protein 4.8 g/dL (6.4-8.9); eGFR For African Americans > 60 (> 60); eGFR For Non-African Americans > 60 (> 60)
[2020-05-27 03:45] LABS: Ferritin 95 ng/mL (20-250)
[2020-05-27] MEDS: *HR* Enoxaparin 80 MG/0.8 ML SYRINGE SQ SCH ×2 (06:18→17:52)
[2020-05-27] MEDS: Isosorbide MONOnitrate (24 HR) 60 MG TAB.ER.24H PO SCH (08:08)
[2020-05-27] MEDS: Dexamethasone Sodium Phos/PF 10 MG/ML VIAL IVP SCH (08:08)
[2020-05-27] MEDS: PARoxetine 10 MG TABLET PO SCH (08:08)
[2020-05-27] MEDS: Gabapentin 300 MG CAPSULE PO SCH ×3 (08:08→20:52)
[2020-05-27] MEDS: Cholecalciferol (D-3) 1,000 UNIT (25MCG) TABLET PO SCH (08:09)
[2020-05-27] MEDS: Metoprolol XL (24 HR) Succ 50 MG TAB.ER.24H PO SCH ×2 (08:09→20:12)
[2020-05-27] MEDS: Furosemide 20 MG TABLET PO SCH (08:09)
[2020-05-27] MEDS: *HR* Amiodarone 200 MG TABLET PO SCH (08:09)
[2020-05-27] MEDS: Insulin DETEMIR 100 UNIT/ML X5UNITS SUBQ SCH ×2 (08:11→20:52)
[2020-05-27] MEDS: Insulin LISPRO 300 UNITS/3 ML VIAL SUBQ SCH ×6 (08:14→17:55)
[2020-05-27] MEDS: Loratadine 10 MG TABLET PO SCH (09:34)
[2020-05-27] MEDS: Ipratropium 1 PUFF INHALER IH SCH ×4 (12:00→23:31)
[2020-05-27] MEDS: Piperacillin/Tazobactam 3.375 GM in 0.9 % Sodium Chloride Mini Bag 100 ML IVPB SCH (17:53)
[2020-05-27] MEDS: Warfarin perPT PO SCH (17:56)
[2020-05-27] MEDS ORDERED: *HR* Warfarin 5 MG TABLET PO ONE (18:00)
[2020-05-27] MEDS: Melatonin 3 MG TABLET PO SCH (20:11)
[2020-05-27] MEDS: *HR* LORazepam 0.5 MG TABLET PO PRN (20:12)
[2020-05-28] MEDS: Piperacillin/Tazobactam 3.375 GM in 0.9 % Sodium Chloride Mini Bag 100 ML IVPB SCH ×3 (00:02→16:07)
[2020-05-28] MEDS: Ipratropium 1 PUFF INHALER IH SCH ×5 (03:31→20:06)
[2020-05-28 05:39] LABS: Basophils % 0.1 %; Hematocrit 32.6 % (37.5-50.1); Hemoglobin 10.1 g/dL (12.9-16.9); Immature Granulocytes % 1.2 % (0-4); Lymphocytes # 0.5 K/mcL (0.6-4.6); Lymphocytes % 3.9 %; Mean Corpuscular Hemoglobin 24.6 pg (28.0-33.3); Mean Corpuscular Volume 79.5 fL (83.0-100.0); Mean Platelet Volume 10.9 fL (9.4-12.4); Monocytes # 0.7 K/mcL (0.0-1.3); Monocytes % 6.2 %; Neutrophils # 10.2 K/mcL (1.6-8.9); Platelet Count 183 K/mcL (140-400); Red Cell Distribution Width 18.6 % (11.5-14.5); Segmented Neutrophils % 88.6 %; White Blood Count 11.5 K/mcL (4.3-11.1)
[2020-05-28 05:44] LABS: INR 1.1; Prothrombin Time 13.2 Seconds (9.4-12.1)
[2020-05-28 05:58] LABS: BUN/Creatinine Ratio 43 (6-26); Blood Urea Nitrogen 43 mg/dL (8-23); Calcium 8.2 mg/dL (8.6-10.3); Carbon Dioxide 31 mEq/L (23-29); Chloride 99 mEq/L (98-107); Glucose 263 mg/dL (70-105); Magnesium 2.1 mg/dL (1.6-2.6); Osmolality,Calculated 296 (280-300); Potassium 4.6 mEq/L (3.5-5.1); Sodium 133 mEq/L (136-145); eGFR For African Americans > 60 (> 60); eGFR For Non-African Americans > 60 (> 60)
[2020-05-28] MEDS: *HR* Enoxaparin 80 MG/0.8 ML SYRINGE SQ SCH ×2 (06:15→17:02)
[2020-05-28] MEDS: Pantoprazole 40 MG VIAL IVP SCH (07:49)
[2020-05-28] MEDS: Metoprolol XL (24 HR) Succ 50 MG TAB.ER.24H PO SCH ×2 (07:49→20:54)
[2020-05-28] MEDS: Isosorbide MONOnitrate (24 HR) 60 MG TAB.ER.24H PO SCH (07:49)
[2020-05-28] MEDS: Cholecalciferol (D-3) 1,000 UNIT (25MCG) TABLET PO SCH (07:49)
[2020-05-28] MEDS: Insulin DETEMIR 100 UNIT/ML X5UNITS SUBQ SCH ×2 (07:49→20:54)
[2020-05-28] MEDS: *HR* Amiodarone 200 MG TABLET PO SCH (07:50)
[2020-05-28] MEDS: Furosemide 20 MG TABLET PO SCH (07:50)
[2020-05-28] MEDS: Loratadine 10 MG TABLET PO SCH (07:50)
[2020-05-28] MEDS: Gabapentin 300 MG CAPSULE PO SCH ×3 (07:50→20:54)
[2020-05-28] MEDS: Dexamethasone Sodium Phos/PF 10 MG/ML VIAL IVP SCH (07:51)
[2020-05-28] MEDS: Insulin LISPRO 300 UNITS/3 ML VIAL SUBQ SCH ×6 (07:52→16:19)
[2020-05-28] MEDS: Warfarin perPT PO SCH (16:20)
[2020-05-28] MEDS ORDERED: *HR* Warfarin 5 MG TABLET PO ONE (18:00)
[2020-05-29] MEDS: Ipratropium 1 PUFF INHALER IH SCH ×5 (00:21→15:17)
[2020-05-29] MEDS: Piperacillin/Tazobactam 3.375 GM in 0.9 % Sodium Chloride Mini Bag 100 ML IVPB SCH ×3 (01:03→17:04)
[2020-05-29 03:22] LABS: Basophils % 0.1 %; Hematocrit 30.7 % (37.5-50.1); Hemoglobin 9.8 g/dL (12.9-16.9); Lymphocytes # 0.3 K/mcL (0.6-4.6); Lymphocytes % 3.4 %; Mean Corpuscular HGB Conc 31.9 g/dL (31.6-35.5); Mean Corpuscular Hemoglobin 25.3 pg (28.0-33.3); Mean Corpuscular Volume 79.1 fL (83.0-100.0); Mean Platelet Volume 10.8 fL (9.4-12.4); Monocytes # 0.6 K/mcL (0.0-1.3); Monocytes % 5.7 %; Neutrophils # 8.9 K/mcL (1.6-8.9); Platelet Count 160 K/mcL (140-400); Red Blood Count 3.88 M/mcL (4.19-5.50); Red Cell Distribution Width 18.7 % (11.5-14.5); Segmented Neutrophils % 89.8 %; White Blood Count 9.9 K/mcL (4.3-11.1)
[2020-05-29 03:28] LABS: INR 1.5; Prothrombin Time 16.8 Seconds (9.4-12.1)
[2020-05-29 03:38] LABS: BUN/Creatinine Ratio 43 (6-26); Blood Urea Nitrogen 42 mg/dL (8-23); Calcium 8.1 mg/dL (8.6-10.3); Carbon Dioxide 30 mEq/L (23-29); Chloride 98 mEq/L (98-107); Glucose 318 mg/dL (70-105); Osmolality,Calculated 299 (280-300); Potassium 4.4 mEq/L (3.5-5.1); Sodium 133 mEq/L (136-145); eGFR For African Americans > 60 (> 60); eGFR For Non-African Americans > 60 (> 60)
[2020-05-29] MEDS: *HR* Enoxaparin 80 MG/0.8 ML SYRINGE SQ SCH ×2 (06:07→17:24)
[2020-05-29] MEDS ORDERED: Insulin DETEMIR 100 UNIT/ML X5UNITS SUBQ SCH (09:00)
[2020-05-29] MEDS: Gabapentin 300 MG CAPSULE PO SCH ×2 (09:36→14:39)
[2020-05-29] MEDS: Cholecalciferol (D-3) 1,000 UNIT (25MCG) TABLET PO SCH (09:36)
[2020-05-29] MEDS: Loratadine 10 MG TABLET PO SCH (09:36)
[2020-05-29] MEDS: *HR* Amiodarone 200 MG TABLET PO SCH (09:37)
[2020-05-29] MEDS: Furosemide 20 MG TABLET PO SCH (09:38)
[2020-05-29] MEDS: Isosorbide MONOnitrate (24 HR) 60 MG TAB.ER.24H PO SCH (09:38)
[2020-05-29] MEDS: Dexamethasone Sodium Phos/PF 10 MG/ML VIAL IVP SCH (09:39)
[2020-05-29] MEDS: Pantoprazole 40 MG VIAL IVP SCH (09:39)
[2020-05-29] MEDS: Insulin LISPRO 300 UNITS/3 ML VIAL SUBQ SCH ×6 (09:42→17:03)
[2020-05-29] MEDS: Acetaminophen 325 MG TABLET PO PRN (14:39)
[2020-05-29 16:24] VITALS: BP 110/62
[2020-05-29] MEDS: Warfarin perPT PO SCH (17:25)
[2020-05-29] MEDS ORDERED: *HR* Warfarin 2.5 MG TABLET PO ONE (18:00)
[2020-05-30] MEDS ORDERED: Metoprolol XL (24 HR) Succ 50 MG TAB.ER.24H PO SCH (09:00)
== END 2020-05-29 17:54 | DRG 871 ==
LOC: 2NENU 15:24 → SUATTDRO 15:24 → 2NENU 05-26 02:28
PROVIDERS: ADMIT Internal Medicine; ATTEND Pharmacist

== ENCOUNTER 2020-09-02 21:40 | Inpatient (IN) ==
[2020-09-02] MEDS ORDERED: Piperacillin/Tazobactam 3.375 GM in 0.9 % Sodium Chloride Mini Bag 100 ML IVPB ONE (22:15)
[2020-09-02] MEDS ORDERED: Vancomycin 1,500 MG/265 ML IV.SOLN IVPB ONE (22:15)
[2020-09-02] MEDS ORDERED: Piperacillin/Tazobactam 3.375 GM VIAL ONE (22:18)
[2020-09-02 22:23] LABS: Basophils % 0.2 %; Hematocrit 32.3 % (37.5-50.1); Immature Granulocytes % 0.7 % (0-4); Lymphocytes # 0.3 K/mcL (0.6-4.6); Lymphocytes % 4.4 %; Mean Corpuscular Volume 77.5 fL (83.0-100.0); Monocytes # 0.8 K/mcL (0.0-1.3); Platelet Count 175 K/mcL (140-400); Red Blood Count 4.17 M/mcL (4.19-5.50); Red Cell Distribution Width 17.3 % (11.5-14.5); Segmented Neutrophils % 81.7 %; White Blood Count 6.1 K/mcL (4.3-11.1)
[2020-09-02] MEDS ORDERED: Vancomycin 1,250 MG/262.5 ML IV.SOLN IVPB STA (22:27)
[2020-09-02 22:34] LABS: INR 1.9; Prothrombin Time 21.3 Seconds (9.4-12.1)
[2020-09-02 22:37] LABS: Activated Partial Thrombo Time 32.4 Seconds (26.0-36.0)
[2020-09-02 22:50] LABS: Albumin 4.2 g/dL (3.5-5.7); Albumin/Globulin Ratio 1.2 (1.1-2.2); Bilirubin,Direct 0.1 mg/dL (0.0-0.2); Bilirubin,Indirect 0.4 mg/dL (0.0-1.0); Bilirubin,Total 0.5 mg/dL (0.3-1.0); Calcium 9.3 mg/dL (8.6-10.3); Globulin 3.4 g/dL (2.4-3.5); Magnesium 1.2 mg/dL (1.6-2.6); Phosphorous 3.2 mg/dL (2.7-4.5); Potassium 3.1 mEq/L (3.5-5.1); Total Protein 7.6 g/dL (6.4-8.9); Troponin I 0.08 ng/mL (< 0.04)
[2020-09-02 23:28] LABS: Adenovirus Not Detected (Not Detect); Coronavirus 229E Not Detected (Not Detect); Coronavirus HKU1 Not Detected (Not Detect); Coronavirus NL63 Not Detected (Not Detect); Coronavirus OC43 Not Detected (Not Detect)
[2020-09-02 23:29] LABS: Bordetella Pertussis Not Detected (Not Detect); Chlamydophila pneumoniae Not Detected (Not Detect); Human Metapneumovirus Not Detected (Not Detect); Human Rhinovirus/Enterovirus Not Detected (Not Detect); Influenza A Subtype 2009 H1 Not Detected (Not Detect); Influenza B Not Detected (Not Detect); Mycoplasma pneumoniae Not Detected (Not Detect); Parainfluenza Virus 1 Not Detected (Not Detect); Parainfluenza Virus 2 Not Detected (Not Detect); Parainfluenza Virus 3 Not Detected (Not Detect); Parainfluenza Virus 4 Not Detected (Not Detect); Respiratory Syncytial Virus Not Detected (Not Detect); SARS-CoV-2 Not Detected (Not Detect)
[2020-09-02 23:48] LABS: Bilirubin,Urine Negative (Negative); Blood,Urine Trace (Negative); Clarity,Urine Clear (Clear); Color,Urine Yellow (Yellow); Glucose,Urine (UA) Normal (Normal); Ketones,Urine 20 mg/dL (Negative); Leukocyte Esterase,Urine Negative (Negative); Mucus,Urine Few per lpf (None-Few); Nitrite,Urine Negative (Negative); Protein,Urine 100 mg/dL (Neg-Trace); RBC,Urine 0-3 per hpf (0-3); Specific Gravity,Urine 1.021 (1.010-1.025); Squamous Epithelial Cell,Urine Few per hpf (None-Few); Urobilinogen,Urine Normal (Normal); WBC,Urine 0-3 per hpf (0-3)
[2020-09-03] MEDS ORDERED: Aspirin 325 MG TABLET PO ONE (01:19)
[2020-09-03] MEDS ORDERED: *HR* Midazolam HCl 2 MG/2 ML VIAL IVP ONE ×2 (01:31)
[2020-09-03] MEDS ORDERED: *HR* Midazolam HCl 5 MG/5 ML VIAL IVP ONE ×3 (01:31→15:43)
[2020-09-03] MEDS ORDERED: *HR* Etomidate 20 MG/10 ML AMPUL IVP ONE (01:31)
[2020-09-03] MEDS ORDERED: *HR* Rocuronium Bromide 50 MG/5 ML VIAL IVP ONE (01:31)
[2020-09-03] MEDS: 0.9 % Sodium Chloride 1,000 ML IVC ONE ×2 (01:53→16:01)
[2020-09-03] MEDS ORDERED: Ondansetron 4 MG/2 ML VIAL IVP PRN (01:56)
[2020-09-03] MEDS ORDERED: Naloxone 0.4 MG/ML INJ IVP PRN (01:56)
[2020-09-03 03:02] LABS: Hematocrit 29.4 % (37.5-50.1); Mean Corpuscular HGB Conc 30.6 g/dL (31.6-35.5); Mean Corpuscular Hemoglobin 23.6 pg (28.0-33.3); Mean Platelet Volume 10.6 fL (9.4-12.4); Platelet Count 156 K/mcL (140-400); Red Blood Count 3.82 M/mcL (4.19-5.50); Red Cell Distribution Width 17.4 % (11.5-14.5); White Blood Count 4.9 K/mcL (4.3-11.1)
[2020-09-03 03:21] LABS: BUN/Creatinine Ratio 18 (6-26); Blood Urea Nitrogen 25 mg/dL (8-23); Calcium 8.6 mg/dL (8.6-10.3); Carbon Dioxide 25 mEq/L (23-29); Chloride 98 mEq/L (98-107); Glucose 135 mg/dL (70-105); Osmolality,Calculated 290 (280-300); Potassium 2.9 mEq/L (3.5-5.1); Sodium 137 mEq/L (136-145); eGFR For African Americans > 60 (> 60); eGFR For Non-African Americans 50 (> 60)
[2020-09-03] MEDS ORDERED: Azithromycin 500 MG in 0.9 % Sodium Chloride 250 ML IVPB SCH (04:00)
[2020-09-03] MEDS ORDERED: Dextrose Gel 15 GM/37.5 ML TUBE PO PRN ×2 (04:15)
[2020-09-03] MEDS ORDERED: *HR* Dextrose 50 % in Water (Vial) 50 ML VIAL IVP PRN (04:15)
[2020-09-03] MEDS ORDERED: D5% in Water 1,000 ML IVC PRN (04:15)
[2020-09-03] MEDS ORDERED: Potassium Chloride Elixir 20 MEQ/15 ML UDC PO ONE (04:17)
[2020-09-03] MEDS ORDERED: *HR* Heparin 5,000 UNIT/ML VIAL SQ SCH (06:00)
[2020-09-03] MEDS ORDERED: Perflutren Lipid Microsphere 1.3 ML in 0.9 % Sodium Chloride 8.7 ML IVP PRN (07:31)
[2020-09-03] MEDS: Insulin LISPRO 300 UNITS/3 ML VIAL SUBQ SCH ×3 (07:59→19:52)
[2020-09-03] MEDS: Acetaminophen 325 MG TABLET PO PRN ×2 (08:39→20:38)
[2020-09-03] MEDS ORDERED: cefTRIAXone 1,000 MG in 0.9 % Sodium Chloride Mini Bag 100 ML IVPB SCH (09:00)
[2020-09-03] MEDS ORDERED: *HR* Heparin 5,000 UNIT/ML VIAL IVP PRN ×2 (09:26)
[2020-09-03] MEDS ORDERED: *HR* Heparin 5,000 UNIT/ML VIAL IVP ONE (09:26)
[2020-09-03] MEDS ORDERED: Nitroglycerin 0.4 MG TAB.SUBL SL PRN (10:06)
[2020-09-03 10:14] LABS: Heparin anti-factor XA UFH 0.05 IU/mL (0.30-0.70)
[2020-09-03 10:15] LABS: INR 1.7; Prothrombin Time 19.4 Seconds (9.4-12.1)
[2020-09-03 10:24] LABS: BUN/Creatinine Ratio 17 (6-26); Blood Urea Nitrogen 22 mg/dL (8-23); Calcium 8.4 mg/dL (8.6-10.3); Carbon Dioxide 25 mEq/L (23-29); Chloride 100 mEq/L (98-107); Glucose 193 mg/dL (70-105); Osmolality,Calculated 289 (280-300); Potassium 3.4 mEq/L (3.5-5.1); Sodium 135 mEq/L (136-145); eGFR For African Americans > 60 (> 60); eGFR For Non-African Americans 54 (> 60)
[2020-09-03] MEDS: Heparin 25,000UNIT/250ML 1/2NS 25,000 UNIT/250 ML IV.SOLN IVC SCH (10:38)
[2020-09-03] MEDS ORDERED: Piperacillin/Tazobactam 3.375 GM in 0.9 % Sodium Chloride Mini Bag 100 ML IVPB SCH (11:00)
[2020-09-03] MEDS ORDERED: *HR* LORazepam 2 MG/ML VIAL IVP PRN (13:55)
[2020-09-03] MEDS ORDERED: Ipratropium/Albuterol Neb 3 ML ONE (14:23)
[2020-09-03] MEDS ORDERED: *HR* Metoprolol 5 MG/5 ML VIAL IVP ONE ×3 (14:24→16:11)
[2020-09-03] MEDS ORDERED: Furosemide 20 MG/2 ML VIAL IVP ONE ×3 (14:25→17:17)
[2020-09-03] MEDS ORDERED: Morphine Sulfate 2 MG/ML SYRINGE ONE (14:29)
[2020-09-03] MEDS ORDERED: *HR* HYDROmorphone (PF) 1 MG/ML SYRINGE IVP ONE (14:33)
[2020-09-03] MEDS ORDERED: *HR* FentaNYL (PF) 100 MCG/2 ML VIAL ONE ×2 (14:34→14:56)
[2020-09-03] MEDS ORDERED: Morphine Sulfate 2 MG/ML SYRINGE IVP ONE ×2 (14:35→14:42)
[2020-09-03] MEDS ORDERED: Dexmedetomidine HCl 400 MCG/100 ML MLS IVC ONE ×2 (14:53→15:18)
[2020-09-03] MEDS ORDERED: 0.9 % Sodium Chloride 1,000 ML ONE (15:01)
[2020-09-03] MEDS ORDERED: Artificial Tears SOLN 15 ML BOTTLE BOTH EYES PRN (15:12)
[2020-09-03] MEDS: Dexmedetomidine HCl 400 MCG/100 ML MLS IVC SCH ×2 (15:15→22:26)
[2020-09-03] MEDS ORDERED: Amiodarone Premix 360 MG/200 ML BAG IVC ONE (15:19)
[2020-09-03] MEDS ORDERED: Amiodarone Premix 150 MG/100 ML BAG IVPB ONE ×2 (15:19→15:25)
[2020-09-03] MEDS: Midazolam HCl 50 MG/100 ML IV.SOLN IVC SCH (15:30)
[2020-09-03] MEDS: FentaNYL (PF) 1,000 MCG/100 ML IV.SOLN IVC SCH (15:30)
[2020-09-03] MEDS ORDERED: *HR* Phenylephrine 10 MG/ML VIAL ONE (15:30)
[2020-09-03] MEDS ORDERED: *HR* FentaNYL (PF) 100 MCG/2 ML VIAL IVP ONE ×2 (15:44→15:50)
[2020-09-03] MEDS: Piperacillin/Tazobactam 3.375 GM in 0.9 % Sodium Chloride Mini Bag 100 ML IVPB SCH (16:30)
[2020-09-03 16:31] LABS: ABG Base Excess -5 mEq/L (-2 to 3); ABG HCO3 22 mEq/L (21-27); ABG Oxygen Saturation 98 % (95-98); ABG PCO2 48 mmHg (35-45); ABG PH 7.27 pH Units (7.32-7.45); ABG PO2 118 mmHg (85-104); ABG TCO2 23 mEq/L (20-26); Blood Gas VT 460 cc
[2020-09-03 17:06] LABS: VBG Ionized Calcium 1.05 mmol/L (1.15-1.35)
[2020-09-03 17:09] LABS: Basophils % 0.1 %; Hematocrit 37.2 % (37.5-50.1); Immature Granulocytes % 0.7 % (0-4); Lymphocytes # 1.8 K/mcL (0.6-4.6); Lymphocytes % 13.3 %; Mean Corpuscular HGB Conc 29.3 g/dL (31.6-35.5); Mean Corpuscular Hemoglobin 23.7 pg (28.0-33.3); Mean Corpuscular Volume 80.9 fL (83.0-100.0); Monocytes # 0.4 K/mcL (0.0-1.3); Neutrophils # 11.4 K/mcL (1.6-8.9); Platelet Count 206 K/mcL (140-400); Red Cell Distribution Width 17.8 % (11.5-14.5); Segmented Neutrophils % 82.9 %
[2020-09-03 17:10] LABS: Hemoglobin 10.9 g/dL (12.9-16.9); White Blood Count 13.7 K/mcL (4.3-11.1)
[2020-09-03 17:21] LABS: Heparin anti-factor XA UFH 0.72 IU/mL (0.30-0.70); INR 1.9; Prothrombin Time 21.2 Seconds (9.4-12.1)
[2020-09-03 17:25] LABS: Activated Partial Thrombo Time 99.1 Seconds (26.0-36.0)
[2020-09-03 17:35] LABS: Albumin 3.5 g/dL (3.5-5.7); Albumin/Globulin Ratio 1.2 (1.1-2.2); Bilirubin,Direct 0.1 mg/dL (0.0-0.2); Bilirubin,Indirect 0.5 mg/dL (0.0-1.0); Bilirubin,Total 0.6 mg/dL (0.3-1.0); Calcium 8.2 mg/dL (8.6-10.3); Globulin 2.9 g/dL (2.4-3.5); Phosphorous 5.9 mg/dL (2.7-4.5); Potassium 4.5 mEq/L (3.5-5.1); Total Protein 6.4 g/dL (6.4-8.9); Troponin I 0.27 ng/mL (< 0.04)
[2020-09-03] MEDS: Doxycycline 100 MG in 0.9 % Sodium Chloride Mini Bag 100 ML IVPB SCH (17:56)
[2020-09-03] MEDS: Pantoprazole 40 MG VIAL IVP SCH (17:57)
[2020-09-03] MEDS: Artificial Tears SOLN 15 ML BOTTLE BOTH EYES SCH ×2 (19:52→20:37)
[2020-09-03] MEDS: Norepinephrine 4 MG/254 ML IV.SOLN IVC SCH (20:22)
[2020-09-03] MEDS: Chlorhexidine Rinse 15 ML MOUTHWASH MM SCH (20:37)
[2020-09-03] MEDS: Amiodarone Premix 360 MG/200 ML BAG IVC SCH (20:39)
[2020-09-03] MEDS ORDERED: Vancomycin 1,250 MG/262.5 ML IV.SOLN IVPB SCH (23:00)
[2020-09-04] MEDS: FentaNYL (PF) 1,000 MCG/100 ML IV.SOLN IVC SCH ×3 (00:01→17:44)
[2020-09-04] MEDS: Artificial Tears SOLN 15 ML BOTTLE BOTH EYES SCH ×7 (00:02→23:17)
[2020-09-04] MEDS: Piperacillin/Tazobactam 3.375 GM in 0.9 % Sodium Chloride Mini Bag 100 ML IVPB SCH ×4 (00:13→23:42)
[2020-09-04] MEDS: Midazolam HCl 50 MG/100 ML IV.SOLN IVC SCH ×2 (02:43→04:27)
[2020-09-04] MEDS: Norepinephrine 4 MG/254 ML IV.SOLN IVC SCH ×2 (02:44→08:00)
[2020-09-04] MEDS: Acetaminophen 325 MG TABLET PO PRN (04:22)
[2020-09-04 04:45] LABS: ABG Base Excess -3 mEq/L (-2 to 3); ABG HCO3 22 mEq/L (21-27); ABG Oxygen Saturation 97 % (95-98); ABG PCO2 41 mmHg (35-45); ABG PH 7.35 pH Units (7.32-7.45); ABG PO2 95 mmHg (85-104); ABG TCO2 24 mEq/L (20-26); Blood Gas VT 460 cc
[2020-09-04 05:24] LABS: Calcium 7.5 mg/dL (8.6-10.3); Magnesium 2.1 mg/dL (1.6-2.6); Potassium 4.5 mEq/L (3.5-5.1)
[2020-09-04] MEDS: Dexmedetomidine HCl 400 MCG/100 ML MLS IVC SCH ×3 (05:59→22:20)
[2020-09-04] MEDS: Amiodarone Premix 360 MG/200 ML BAG IVC SCH ×3 (05:59→19:37)
[2020-09-04] MEDS: Doxycycline 100 MG in 0.9 % Sodium Chloride Mini Bag 100 ML IVPB SCH ×2 (06:00→16:39)
[2020-09-04 06:44] LABS: Basophils % 0.2 %; Hematocrit 28.6 % (37.5-50.1); Hemoglobin 8.5 g/dL (12.9-16.9); Mean Corpuscular HGB Conc 29.7 g/dL (31.6-35.5)
[2020-09-04 06:46] LABS: Immature Granulocytes % 0.7 % (0-4); Immature Platelets 7.3 % (1.1-6.1); Lymphocytes # 0.5 K/mcL (0.6-4.6); Lymphocytes % 7.5 %; Mean Corpuscular Hemoglobin 23.7 pg (28.0-33.3); Mean Corpuscular Volume 79.9 fL (83.0-100.0); Mean Platelet Volume 11.5 fL (9.4-12.4); Monocytes # 0.1 K/mcL (0.0-1.3); Neutrophils # 5.6 K/mcL (1.6-8.9); Nucleated Red Blood Cells 0.5 /100 WBC (0); Red Blood Count 3.58 M/mcL (4.19-5.50); Red Cell Distribution Width 17.4 % (11.5-14.5); Segmented Neutrophils % 90.6 %; White Blood Count 6.2 K/mcL (4.3-11.1)
[2020-09-04 07:09] LABS: Platelet Count 93 K/mcL (140-400)
[2020-09-04 07:10] LABS: Platelet Estimate Slight Decrease (Normal); Reactive Lymphocytes Present (Not Present)
[2020-09-04] MEDS ORDERED: Furosemide 40 MG/4 ML VIAL IVP ONE (08:53)
[2020-09-04] MEDS ORDERED: Aspirin 81 MG TAB.CHEW PO SCH (09:00)
[2020-09-04] MEDS ORDERED: Isosorbide MONOnitrate (24 HR) 60 MG TAB.ER.24H PO SCH (09:00)
[2020-09-04] MEDS ORDERED: *HR* Amiodarone 200 MG TABLET PO SCH (09:00)
[2020-09-04] MEDS: Insulin LISPRO 300 UNITS/3 ML VIAL SUBQ SCH ×3 (09:07→17:33)
[2020-09-04] MEDS: Pantoprazole 40 MG VIAL IVP SCH (09:18)
[2020-09-04] MEDS: Chlorhexidine Rinse 15 ML MOUTHWASH MM SCH ×2 (09:19→20:21)
[2020-09-04] MEDS: Cyanocobalamin (B-12) 1,000 MCG TABLET PO SCH (09:19)
[2020-09-04 09:55] LABS: Red Cell Distribution Width 17.5 % (11.5-14.5); White Blood Count 6.9 K/mcL (4.3-11.1)
[2020-09-04 09:57] LABS: Hematocrit 29.3 % (37.5-50.1); Hemoglobin 8.8 g/dL (12.9-16.9); Immature Platelets 8.9 % (1.1-6.1); Mean Corpuscular Hemoglobin 24.1 pg (28.0-33.3); Mean Corpuscular Volume 80.3 fL (83.0-100.0); Mean Platelet Volume 11.4 fL (9.4-12.4); Red Blood Count 3.65 M/mcL (4.19-5.50)
[2020-09-04 10:24] LABS: Platelet Count 94 K/mcL (140-400)
[2020-09-04 10:28] LABS: Lymphocytes # 0.4 K/mcL (0.6-4.6); Neutrophils # 6.5 K/mcL (1.6-8.9)
[2020-09-04 10:30] LABS: Anisocytosis 1+ (Not Present); Platelet Estimate Slight Decrease (Normal); Poikilocytosis 1+ (Not Present)
[2020-09-04 10:31] LABS: Large Platelets Present (Not Present)
[2020-09-04] MEDS: Phenylephrine 50 MG in 0.9 % Sodium Chloride 250 ML IVC SCH ×2 (11:41→22:50)
[2020-09-04] MEDS: Heparin 25,000UNIT/250ML 1/2NS 25,000 UNIT/250 ML IV.SOLN IVC SCH (12:37)
[2020-09-04 13:12] LABS: Calcium 7.7 mg/dL (8.6-10.3); Potassium 4.5 mEq/L (3.5-5.1)
[2020-09-04] MEDS ORDERED: 0.9 % Sodium Chloride 1,000 ML ONE (20:33)
[2020-09-04] MEDS ORDERED: Albumin 25% 25gram/100mL 25 GM/100 ML IV.SOLN IVPB ONE (22:53)
[2020-09-05 03:46] LABS: Red Cell Distribution Width 17.4 % (11.5-14.5)
[2020-09-05 03:48] LABS: Hematocrit 28.9 % (37.5-50.1); Hemoglobin 8.7 g/dL (12.9-16.9); Immature Platelets 9.8 % (1.1-6.1); Mean Corpuscular HGB Conc 30.1 g/dL (31.6-35.5); Mean Corpuscular Hemoglobin 23.9 pg (28.0-33.3); Mean Corpuscular Volume 79.4 fL (83.0-100.0); Red Blood Count 3.64 M/mcL (4.19-5.50); White Blood Count 8.3 K/mcL (4.3-11.1)
[2020-09-05 03:50] LABS: Platelet Count 76 K/mcL (140-400)
[2020-09-05 03:52] LABS: VBG Ionized Calcium 0.87 mmol/L (1.15-1.35)
[2020-09-05 04:02] LABS: BUN/Creatinine Ratio 11 (6-26); Blood Urea Nitrogen 51 mg/dL (8-23); Calcium 7.5 mg/dL (8.6-10.3); Carbon Dioxide 19 mEq/L (23-29); Chloride 101 mEq/L (98-107); Glucose 91 mg/dL (70-105); Osmolality,Calculated 293 (280-300); Potassium 4.9 mEq/L (3.5-5.1); Sodium 135 mEq/L (136-145); eGFR For African Americans 16 (> 60); eGFR For Non-African Americans 13 (> 60)
[2020-09-05 04:04] LABS: Heparin anti-factor XA UFH 0.28 IU/mL (0.30-0.70)
[2020-09-05] MEDS: Artificial Tears SOLN 15 ML BOTTLE BOTH EYES SCH ×6 (04:04→23:22)
[2020-09-05] MEDS: FentaNYL (PF) 1,000 MCG/100 ML IV.SOLN IVC SCH ×3 (04:05→23:08)
[2020-09-05 04:13] LABS: Prothrombin Time 44.2 Seconds (9.4-12.1)
[2020-09-05 04:17] LABS: Lymphocytes # 0.7 K/mcL (0.6-4.6); Neutrophils # 7.6 K/mcL (1.6-8.9)
[2020-09-05 04:18] LABS: Anisocytosis 1+ (Not Present); Platelet Estimate Decreased (Normal); Reactive Lymphocytes Present (Not Present)
[2020-09-05 04:52] LABS: Alanine Aminotransferase 4502 Units/L (7-52); Albumin 3.2 g/dL (3.5-5.7); Albumin/Globulin Ratio 1.4 (1.1-2.2); Alkaline Phosphatase 62 Units/L (34-104); Aspartate Amino Transferase > 3000 Units/L (13-39); Bilirubin,Direct 0.7 mg/dL (0.0-0.2); Bilirubin,Indirect 0.5 mg/dL (0.0-1.0); Bilirubin,Total 1.2 mg/dL (0.3-1.0); Globulin 2.3 g/dL (2.4-3.5); Phosphorous 7.3 mg/dL (2.7-4.5); Total Protein 5.5 g/dL (6.4-8.9)
[2020-09-05 04:53] LABS: ABG Base Excess -7 mEq/L (-2 to 3); ABG HCO3 20 mEq/L (21-27); ABG Oxygen Saturation 98 % (95-98); ABG PCO2 49 mmHg (35-45); ABG PH 7.22 pH Units (7.32-7.45); ABG PO2 122 mmHg (85-104); ABG TCO2 22 mEq/L (20-26); Blood Gas Modality ASSIST CONTROL; Blood Gas VT 460 cc
[2020-09-05] MEDS ORDERED: Calcium Gluconate 1gm/50mL 1 GM/50 ML BAG IVPB ONE (05:27)
[2020-09-05] MEDS: Phenylephrine 50 MG in 0.9 % Sodium Chloride 250 ML IVC SCH ×2 (05:37→10:48)
[2020-09-05] MEDS: Doxycycline 100 MG in 0.9 % Sodium Chloride Mini Bag 100 ML IVPB SCH (05:38)
[2020-09-05] MEDS: Dexmedetomidine HCl 400 MCG/100 ML MLS IVC SCH (06:40)
[2020-09-05] MEDS: Amiodarone Premix 360 MG/200 ML BAG IVC SCH (06:41)
[2020-09-05] MEDS ORDERED: Calcium Gluconate 1gm/50mL 1 GM/50 ML BAG IVPB PRN (07:00)
[2020-09-05] MEDS: Insulin LISPRO 300 UNITS/3 ML VIAL SUBQ SCH ×3 (08:46→16:44)
[2020-09-05] MEDS: Chlorhexidine Rinse 15 ML MOUTHWASH MM SCH ×2 (08:47→22:03)
[2020-09-05] MEDS: Piperacillin/Tazobactam 3.375 GM in 0.9 % Sodium Chloride Mini Bag 100 ML IVPB SCH (08:47)
[2020-09-05] MEDS: Pantoprazole 40 MG VIAL IVP SCH (08:47)
[2020-09-05] MEDS: Cyanocobalamin (B-12) 1,000 MCG TABLET PO SCH (08:48)
[2020-09-05] MEDS ORDERED: Scopolamine Patch 1.5 MG PATCH.TD72 TD SCH (15:15)
[2020-09-05] MEDS: *HR* LORazepam 2 MG/ML VIAL IVP PRN ×4 (16:04→23:37)
[2020-09-05] MEDS ORDERED: Piperacillin/Tazobactam 3.375 GM in 0.9 % Sodium Chloride Mini Bag 100 ML IVPB SCH (20:00)
[2020-09-06] MEDS ORDERED: Atropine 1% Opth Drops 100 DROP/5 ML BOTTLE BOTH EYES PRN
[2020-09-06] MEDS: Atropine 1% Opth Drops 100 DROP/5 ML BOTTLE SL PRN ×2 (00:18→03:34)
[2020-09-06] MEDS: Artificial Tears SOLN 15 ML BOTTLE BOTH EYES SCH ×2 (03:23→09:16)
[2020-09-06] MEDS: *HR* LORazepam 2 MG/ML VIAL IVP PRN ×3 (03:33→09:11)
[2020-09-06] MEDS: FentaNYL (PF) 1,000 MCG/100 ML IV.SOLN IVC SCH (05:56)
[2020-09-06 08:02] VITALS: BP 68/41
[2020-09-06] MEDS: Chlorhexidine Rinse 15 ML MOUTHWASH MM SCH (09:16)
[2020-09-06] MEDS ORDERED: Ondansetron 4 MG/2 ML VIAL IVP PRN (10:11)
[2020-09-06] MEDS ORDERED: FentaNYL (PF) 1,000 MCG/100 ML IV.SOLN IVC SCH (10:11)
[2020-09-06] MEDS ORDERED: Naloxone 0.4 MG/ML INJ IVP PRN (10:11)
[2020-09-06] MEDS ORDERED: *HR* LORazepam 2 MG/ML VIAL IVP PRN ×2 (10:11→10:19)
[2020-09-06] MEDS ORDERED: Atropine 1% Opth Drops 100 DROP/5 ML BOTTLE SL PRN (10:11)
[2020-09-06] MEDS ORDERED: Artificial Tears SOLN 15 ML BOTTLE BOTH EYES PRN (10:11)
[2020-09-06] MEDS ORDERED: Haloperidol Lactate 5 MG/ML VIAL IVP PRN (10:18)
[2020-09-06] MEDS ORDERED: *HR* FentaNYL (PF) 100 MCG/2 ML VIAL IVP PRN (10:18)
[2020-09-06] MEDS ORDERED: Acetaminophen 650 MG RECTAL SUPP RC PRN (10:24)
[2020-09-06] MEDS ORDERED: Artificial Tears SOLN 15 ML BOTTLE BOTH EYES SCH (12:00)
[2020-09-06] MEDS ORDERED: Chlorhexidine Rinse 15 ML MOUTHWASH MM SCH (21:00)
[2020-09-08] MEDS ORDERED: Scopolamine Patch 1.5 MG PATCH.TD72 TD SCH (15:15)
== END 2020-09-06 14:00 | disposition expired | DRG 871 ==
LOC: EMEROOARM 21:40 → 3ANU 21:40 → SUATTDRO 09-03 01:30 → 3ANU 09-03 02:04 → ICNU 09-03 14:52 → 2ANU 09-05 21:59
PROVIDERS: ADMIT Student in an Organized Health Care Education/Training Program; ATTEND Family Medicine